=== PATIENT | female | born 1990 | race Two or more races ===

== ENCOUNTER 2020-08-07 08:35 | Outpatient (REF) | payer OTHER, SELFPAY ==
[2020-08-07 10:15] LABS: Thyroid Stimulating Hormone 1.12 uIU/mL (0.32-4.0)
== END 2020-08-07 08:36 | disposition home or self-care (01) ==
LOC: HO.LAB 08:35
PROVIDERS: PCP Physician Assistant; Visit Provider Advanced Practice Midwife
DX: L65.9 Nonscarring hair loss, unspecified (principal)
CPT/HCPCS: 84443

== ENCOUNTER 2020-08-25 08:12 | Emergency (ER) | payer OTHER, SELFPAY ==
--- NOTE | 2020-08-25 08:26 | ED.CHESTPAIN ---
HPI - Chest Pain General Chief Complaint: Chest Pain Stated Complaint: CHEST PAIN Time Seen by Provider: 08/25/20 08:26 Source: patient Mode of arrival: ambulatory Limitations: no limitations History of Present Illness HPI narrative: patient with no history of coronary disease no risk for coronary artery disease also. Complaining of left-sided chest pain for last 2 days which increases on movement. No shortness of breath no diaphoresis no nausea no vomiting patient also complaining of tingling in left hand off and on. Patient had similar pain few months ago cardiac workup was negative complaint: chest pain Onset (ago): day(s) (2) Timing of current episode: constant Prior episodes: Yes Onset: during rest Pain location: left chest Pain radiation: none Quality: aching Relieving factors: nothing Exacerbating factors: palpation and movement Treatment prior to arrival: none Related Data Previous Rx's Medication Instructions Recorded norethindrone (contraceptive) 0.35 0.35 mg PO DAILY #84 tab 08/02/20 mg tablet ibuprofen 600 mg PO Q6H PRN #20 tab 08/25/20 Allergies Allergy/AdvReac Type Severity Reaction Status Date / Time adhesive tape Allergy Intermediate BLISTERS/RA Verified 08/02/20 14:13 SH latex [LATEX] Allergy Intermediate BLISTERS/RA Verified 08/02/20 14:13 SH Adhesive Tape Allergy Unknown hives Verified 08/02/20 14:13 Latex Allergy Unknown hives Uncoded 05/24/20 00:00 Latex Gloves Allergy Unknown hives Uncoded 07/13/18 00:00 Review of Systems Review of Systems: REVIEW OF SYSTEMS: Pertinent positives and negatives are stated above in the history. GEN: no fevers, chills, fatigue HEENT: no nasal congestion, sore throat, ear pain NEURO: no headache, dizziness, focal weakness PULM: no cough, shortness of breath CV: no palpitations, LE edema ABD: no abdominal pain, nausea, vomiting, diarrhea : no dysuria, urgency, frequency SKIN: no rash ROS otherwise negative x 10 PMFSH Past Medical History Medical History Anemia Migraine Obesity Panic attack Renal calculi Umbilical hernia Vitamin D deficiency Surgical History Hx of bilateral breast reduction surgery Hx of tubal ligation Family History Family History Father Heart attack CVD (cardiovascular disease) Mother Depression HTN (hypertension) Migraine Anxiety Maternal Grandmother HTN (hypertension) Breast cancer Uterine cancer Brother ADHD Sister Depression Maternal Aunt Breast cancer Paternal Grandmother Diabetes mellitus Paternal Grandfather IDDM (insulin dependent diabetes mellitus) Family/Other Cervical cancer Social History Social History Alcohol intake: never Smoking Status: Never smoker Use of substances other than those prescribed or required for medical reasons: No Advance Directives: No Advance Directives Information Provided: No Gender identity: female Physical Exam Vital Signs: Vital Signs: Last Vital Signs Temp 98.3 F 08/25/20 08:28 Pulse 75 08/25/20 08:28 Resp 18 08/25/20 08:28 BP 162/141 H 08/25/20 08:28 Pulse Ox 100 08/25/20 08:28 Body Mass Index 43.4 Appearance: Alert. Oriented X3. No acute distress. Eyes: Pupils equal, round and reactive to light. ENT: Pharynx normal. Neck: Normal inspection. Neck supple. CVS: Normal heart rate and rhythm. Pulses normal. Respiratory: No respiratory distress. Breath sounds normal. left chest wall tenderness in 2nd intercostal space on palpation and movements of left arm Abdomen: Soft and nontender. Skin: Skin warm and dry. Normal skin color. Normal skin turgor. Extremities: No lower extremity edema. Good range of movement no calf swelling or tenderness Neuro: Oriented X 3. No motor deficit. No sensory deficit. MDM - Chest Pain MDM Narrative Medical decision making narrative: patient has atypical chest pain tender on palpation of the left chest troponin negative EKG is normal will discharge her home on ibuprofen Differential Diagnosis Differential diagnosis: Likely atypical chest pain Lab Data Labs: Lab Results 08/25/20 Range/Units 09:02 Troponin I High Sens < 3.5 (<3.5-17.0) ng/L ECG Data ECG #1: Attestation: I personally reviewed and interpreted this ECG as follows: ECG interpretation date: 08/25/20 ECG interpretation time: 08:39 Prior ECG tracings: available for review Interpretation: normal sinus rhythm heart rate [address] T wave changes normal intervals normal axis impression normal EKG Scores Heart Score History: -0- slightly suspicious ECG: -0- normal Age: -0- < or = 45 Risk factory: -0- no risk factors known Troponin: -0- < or = normal limit Score: 0 Risk: 1.7% Discharge Plan Discharge Clinical Impression: Costalchondritis Patient Disposition: Home, Self-Care Instructions: Costochondritis (ED) Additional Instructions: take tylenol/motrin for pain and follow with primary care doctor as needed Prescriptions: New ibuprofen 600 mg tablet 600 mg PO Q6H PRN (Reason: pain) Qty: 20 RF: 0 No Action norethindrone (contraceptive) [Shanelle] 0.35 mg tablet 0.35 mg PO DAILY Qty: 84 RF: 1 Interventions: ED Discharge Assessment Last Done: 08/25/20 10:41 Discharge Date/Time: 08/25/20 10:41
[2020-08-25 08:28] VITALS: BP 162/141; PULSE 75; RESP 18; TEMP 36.8; O2SAT 100; BMI 43.4
[2020-08-25 09:37] LABS: Troponin-I High Sensitivity < 3.5 ng/L (<3.5-17.0)
--- NOTE | 2020-08-27 | ECG_ITS ---
Test Reason : CP Blood Pressure : / mmHG Vent. Rate : 076 BPM Atrial Rate : 076 BPM P-R Int : 142 ms QRS Dur : 094 ms QT Int : 378 ms P-R-T Axes : -17 041 026 degrees QTc Int : 425 ms Normal sinus rhythm Normal ECG When compared with ECG of 02-MAY-2020 10:55, No significant change was found Referred By: Fahad Dinh Electronically Signed By:KACI ORANTES MD
== END 2020-08-25 10:41 | disposition home or self-care (01) ==
PROVIDERS: Emergency Provider Internal Medicine; PCP Physician Assistant
DX: M94.0 Chondrocostal junction syndrome [Tietze] (principal); R07.9 Chest pain, unspecified; Z79.899 Other long term (current) drug therapy
CPT/HCPCS: 84484; 93005; 99284

== ENCOUNTER 2020-08-26 09:42 | Emergency (ER) | payer OTHER, SELFPAY ==
[2020-08-26] VITALS (11 sets, daily range): BP systolic 94–127; BP diastolic 39–74; PULSE 67–100; RESP 16–17; TEMP 36.7–37.1; O2SAT 98–100; BMI 43.4
--- NOTE | 2020-08-26 09:48 | ED_ITS ---
HPI - Nausea/Vomiting/Diarrhea General Chief complaint: Nausea/Vomiting/Diarrhea Stated complaint: vomiting, fainted Time Seen by Provider: 08/26/20 09:46 Source: patient Mode of arrival: ambulatory Limitations: no limitations History of Present Illness HPI Narrative: 30 y/o female s/p tubual ligation 2014 with subsequent to term in 2019, hx ectopic 04/2020 treated with methotrexate, hx cholestasis in , anemia, hx kidney stones, migraines, panic attacks who presents with nausea and vomiting for the last 3 days. She states she has increased stress in her life and attributed it to that. Vomiting is worse in the mornings. She states this morning 1/2 hour after she vomited she was sitting on the couch and thinks she may have passed out briefly. She states she all the sudden had tunnel vision and saw stars. She now feels back to baseline and denies injuries. She has a history of syncope in the past. She denies abdominal pain, diarrhea or constipation. Last menses 07/21. Not on any control at the moment, was supposed to start a non-hormonal OCP soon. Related Data Previous Rx's Medication Instructions Recorded norethindrone (contraceptive) 0.35 0.35 mg PO DAILY #84 tab 08/02/20 mg tablet ibuprofen 600 mg PO Q6H PRN #20 tab 08/25/20 cephalexin [Keflex] 500 mg PO BID 5 Days #10 cap 08/26/20 ondansetron HCl [Zofran] 4 mg PO Q8H PRN #10 tab 08/26/20 Allergies Allergy/AdvReac Type Severity Reaction Status Date / Time adhesive tape Allergy Intermediate BLISTERS/RA Verified 08/02/20 14:13 SH latex [LATEX] Allergy Intermediate BLISTERS/RA Verified 08/02/20 14:13 SH Adhesive Tape Allergy Unknown hives Verified 08/02/20 14:13 Latex Allergy Unknown hives Uncoded 05/24/20 00:00 Latex Gloves Allergy Unknown hives Uncoded 07/13/18 00:00 Review of Systems Review of Systems: Constitutional: No Fever, No Chills ENT/Mouth: No sore throat, No Rhinorrhea, No Swallowing Difficulty Eyes: No Eye Pain, No Swelling, No Redness Cardiovascular: No Chest Pain, No SOB, No Orthopnea, No Edema Respiratory: No Cough, No Sputum, No Wheezing, No dyspnea Gastrointestinal: + Nausea, + Vomiting, No Diarrhea, No abdominal Pain, No Hematochezia, No Melena Genitourinary: No Dysuria, No Urinary Frequency, No Hematuria Musculoskeletal: No joint pain, + Myalgias Skin: No Skin Lesions, No rash Neuro: No Weakness, No Numbness, + Dizziness, + Headache Psych: + Anxiety/Panic, + Depression, No SI Heme/Lymph: No Bruising, No Lymphadenopathy Endocrine: No Polyuria, No Polydipsia [facility] Past Medical History Medical History Anemia Migraine Obesity Panic attack Renal calculi Umbilical hernia Vitamin D deficiency Surgical History Hx of bilateral breast reduction surgery Hx of tubal ligation Family History Family History Father Heart attack CVD (cardiovascular disease) Mother Depression HTN (hypertension) Migraine Anxiety Maternal Grandmother HTN (hypertension) Breast cancer Uterine cancer Brother ADHD Sister Depression Maternal Aunt Breast cancer Paternal Grandmother Diabetes mellitus Paternal Grandfather IDDM (insulin dependent diabetes mellitus) Family/Other Cervical cancer Social History Social History Alcohol intake: never Smoking Status: Never smoker Smoked in Last 30 Days: No Use of substances other than those prescribed or required for medical reasons: No Advance Directives: No Advance Directives Information Provided: No Gender identity: female Physical Exam Vital Signs: Vital Signs: Last Vital Signs Temp 98.0 F 08/26/20 14:00 Pulse 87 08/26/20 14:00 Resp 16 08/26/20 14:00 BP 101/56 L 08/26/20 14:00 Pulse Ox 98 08/26/20 14:00 Body Mass Index 43.4 Appearance: Alert. Oriented X3. No acute distress. Eyes: Pupils equal, round and reactive to light. ENT: Pharynx normal. Neck: Normal inspection. Neck supple. CVS: Normal heart rate and rhythm. Pulses normal. Respiratory: No respiratory distress. Breath sounds normal. Abdomen: Obese, Soft and nontender. +BS x4 Skin: Skin warm and dry. Normal skin color. Normal skin turgor. No rashes. Extremities: No lower extremity edema. Neuro: Oriented X 3. No motor deficit. No sensory deficit. Course Course Course Narrative: 30 y/o mulitparous female with recent ectopic , hx after tubal ligation presents with N/V x1 days and possible syncopal episode this morning. Concern for recurrent now that she is not on any form of control. Will check labs, HCG quant, EKG, orthostatics and assess for electrolyte derrangements. She is vitally stable on arrival and appears well. IVF and Zofran ordered for reports of continued nausea. Reevaluation(s) Reevaluation #1: HCG returned at 2846. Patient informed of the results. Given her history will get pelvic U/S to assure intrauterine . Magnesium 1.5 - 2g IV ordered for repletion. Orthostatics positive, getting IVF now, will repeat. LFT's mildly elevated, she has no abdominal pain no RUQ pain. Can be from vomiting. Bilirubins and ALP normal reassuring against biliary obstruciton. Reevaluation #2: Repeat orthostatic VS s/p 2L IVF were negative. Spoke with Dr. Michelle given patient's complicated history - he states chance of ectopic with US findings is very low but not 0. He would like short interval follow up in his office with repeat U/S this week. Patient will be counseled on warning signs of ectopic and instructed to seek medical attention right away if she develops them. UA is positive, will empirically treat. She is stable for discharge. Consultations Consultation #1: Spoke with Dr. Carbajal at 2pm. MDM - Nausea/Vomiting/Diarrhea Lab Data Result diagrams: 08/26/20 10:14 08/26/20 10:14 Labs: Lab Results 08/26/20 08/26/20 08/26/20 Range/Units 10:01 10:14 10:14 WBC 7.2 (4.8-10.8) X10*3/uL RBC 4.46 (4.20-5.50) X10*6/uL Hgb 11.9 L (12.0-16.0) g/dl Hct 37.0 (37-47) % MCV 83.0 (80-98) fL MCH 26.7 L (27.0-33.0) pg MCHC 32.2 (31.0-35.0) g/dl RDW 14.3 (11.0-16.0) % Plt Count 267 (160-400) X10*3/uL MPV 10.8 (9.4-12.3) fL Immature Gran % (Auto) 0.3 (0.0-0.4) % Neut % (Auto) 68.8 (45-73) % Lymph % (Auto) 22.0 (20-40) % [place] % (Auto) 7.0 (2-11) % Eos % (Auto) 1.5 (0-4) % Baso % (Auto) 0.4 (0-2) % Lymph # (Auto) 1.6 (1.2-4.9) X10*3/uL [place] # (Auto) 0.5 (0.1-1.2) X10*3/uL Eos # (Auto) 0.1 (0.0-0.4) X10*3/uL Baso # (Auto) 0.0 (0.0-0.2) X10*3/uL Abs Immat Gran (auto) 0.02 (0.00-0.03) X10*3/uL Absolute Neuts (auto) 4.9 (2.0-8.3) X10*3/uL Absolute Nucleated RBC 0.000 (0.0-0.012) X10*3/uL Nucleated RBC % (auto) 0.0 (0.0-0.2) /100WBC Sodium 137 (135-145) mmol/L Potassium 4.1 (3.3-5.1) mmol/l Chloride 106 (96-108) mmol/L Carbon Dioxide 22 (22-29) mmol/L Anion Gap 13 (12-20) BUN 5 L (9-16) mg/dL Creatinine 0.72 (0.5-1.4) mg/dL Estim Creat Clear Calc 127.0 Estimated GFR > 60 Random Glucose 83 (60-115) mg/dL Calcium 8.7 (8.4-10.2) mg/dL Magnesium (1.6-2.6) mg/dL Total Bilirubin 0.9 (0.0-1.0) mg/dL Direct Bilirubin 0.4 (0.0-0.5) mg/dL AST 50 H (5-31) U/L ALT 70 H (0-31) U/L Alkaline Phosphatase 66 (39-117) U/L Total Protein 6.9 (6.5-8.0) g/dL Albumin 3.9 (3.5-5.0) g/dL Lipase (8-78) U/L Beta HCG, Quant mIU/mL Urine Color YELLOW Urine Appearance CLOUDY Urine pH 6.0 (5.0-8.0) Ur Specific [place] <= 1.005 (1.005-1.025) Urine Protein NEG (NEG-TRACE) MG/DL Urine Glucose (UA) NEG (NEG) MG/DL Urine Ketones NEG (NEG) MG/DL Urine Blood NEG (NEG) Urine Nitrite NEG (NEG) Ur Leukocyte Esterase 2+ H (NEG) Urine 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 Urine WBC 5-9 H (0-4) /HPF Ur Squamous Epith Cells 3+ /LPF Urine Bacteria 2+ /LPF Urine Mucus 1+ /LPF 08/26/ Range/Units 10:14 WBC (4.8-10.8) X10*3/uL RBC (4.20-5.50) X10*6/uL Hgb (12.0-16.0) g/dl Hct (37-47) % MCV (80-98) fL MCH (27.0-33.0) pg MCHC (31.0-35.0) g/dl RDW (11.0-16.0) % Plt Count (160-400) X10*3/uL MPV (9.4-12.3) fL Immature Gran % (Auto) (0.0-0.4) % Neut % (Auto) (45-73) % Lymph % (Auto) (20-40) % [place] % (Auto) (2-11) % Eos % (Auto) (0-4) % Baso % (Auto) (0-2) % Lymph # (Auto) (1.2-4.9) X10*3/uL [place] # (Auto) (0.1-1.2) X10*3/uL Eos # (Auto) (0.0-0.4) X10*3/uL Baso # (Auto) (0.0-0.2) X10*3/uL Abs Immat Gran (auto) (0.00-0.03) X10*3/uL Absolute Neuts (auto) (2.0-8.3) X10*3/uL Absolute Nucleated RBC (0.0-0.012) X10*3/uL Nucleated RBC % (auto) (0.0-0.2) /100WBC Sodium (135-145) mmol/L Potassium (3.3-5.1) mmol/l Chloride (96-108) mmol/L Carbon Dioxide (22-29) mmol/L Anion Gap (12-20) BUN (9-16) mg/dL Creatinine (0.5-1.4) mg/dL Estim Creat Clear Calc Estimated GFR Random Glucose (60-115) mg/dL Calcium (8.4-10.2) mg/dL Magnesium 1.5 L (1.6-2.6) mg/dL Total Bilirubin (0.0-1.0) mg/dL Direct Bilirubin (0.0-0.5) mg/dL AST (5-31) U/L ALT (0-31) U/L Alkaline Phosphatase (39-117) U/L Total Protein (6.5-8.0) g/dL Albumin (3.5-5.0) g/dL Lipase 26 (8-78) U/L Beta HCG, Quant 2846 mIU/mL Urine Color Urine Appearance Urine pH (5.0-8.0) Ur Specific [place] (1.005-1.025) Urine Protein (NEG-TRACE) MG/DL Urine Glucose (UA) (NEG) MG/DL Urine Ketones (NEG) MG/DL Urine Blood (NEG) Urine Nitrite (NEG) Ur Leukocyte Esterase (NEG) Urine RBC Urine WBC (0-4) /HPF Ur Squamous Epith Cells /LPF Urine Bacteria /LPF Urine Mucus /LPF Critical Care Time Critical Care Time Critical Care Time: No Discharge Plan Discharge Clinical Impression: Elevated liver enzymes Qualifiers: Weeks of gestation: less than 8 weeks Qualified Code(s): Z3A.01 - Less than 8 weeks gestation of Urinary tract infection during Qualifiers: Trimester: first trimester Qualified Code(s): O23.41 - Unspecified infection of urinary tract in , first trimester Patient Disposition: Home, Self-Care Instructions: Urinary Tract Infection in (ED), First Trimester (ED) Additional Instructions: You blood tests today showed elevated hormone - Ultrasound confirmed within your uterus. Given your history an ectopic risk still remains but is very unlikely at this time. If you develop sharp abdominal pain, cramping, vaginal bleeding, pain on one side more than another, dizziness, worsening nausea and vomiting then come back to the ER right away. Dr. Michelle would like you to call his office tomorrow morning and arrange for repeat ultrasound this week. Stay hydrated, drink plenty of water. Take Tylenol as needed for headache. Your urine test shows possible infection, so you are being started on antibiotics while we await urine culture. Your liver enzymes are very mildly elevated, which you have had in the past. This will needed to be monitored throughout your . If you develop abdominal pain, especially in the right upper side come back to the ER for further evaluation. Follow up with your [facility] [employer] doctor this week. Prescriptions: New ondansetron HCl [Zofran] 4 mg tablet 4 mg PO Q8H PRN (Reason: nausea and vomiting) Qty: 10 RF: 0 cephalexin [Keflex] 500 mg capsule 500 mg PO BID 5 Days Qty: 10 RF: 0 No Action ibuprofen 600 mg tablet 600 mg PO Q6H PRN (Reason: pain) Qty: 20 RF: 0 norethindrone (contraceptive) [Shanelle] 0.35 mg tablet 0.35 mg PO DAILY Qty: 84 RF: 1 Referrals: Adrian Michelle MD [Physician] - 1 day (+, hx tubal ligation, hx ectopic ) Interventions: ED Discharge Assessment Last Done: 08/26/20 14:25 Discharge Date/Time: 08/26/20 14:25
--- NOTE | 2020-08-26 09:55 | ECG_ITS ---
Test Reason : FAINTING Blood Pressure : / mmHG Vent. Rate : 096 BPM Atrial Rate : 096 BPM P-R Int : 142 ms QRS Dur : 086 ms QT Int : 356 ms P-R-T Axes : 060 041 031 degrees QTc Int : 449 ms Normal sinus rhythm Normal ECG When compared with ECG of 25-AUG-2020 08:20, No significant change was found Referred By: Fabby Saleh Electronically Signed By:KACI ORANTES MD
[2020-08-26 10:21] LABS: Basophils Percent Auto 0.4 % (0-2); Eosinophils Absolute Auto 0.1 X10*3/uL (0.0-0.4); Eosinophils Percent Auto 1.5 % (0-4); Hemoglobin 11.9 g/dl (12.0-16.0); Imm Gran Abs Auto 0.02 X10*3/uL (0.00-0.03); Imm Gran Pct Auto 0.3 % (0.0-0.4); Lymphocytes Absolute Auto 1.6 X10*3/uL (1.2-4.9); MANUAL DIFF FLAG NO; Mean Corpuscular HGB Conc 32.2 g/dl (31.0-35.0); Mean Corpuscular Hemoglobin 26.7 pg (27.0-33.0); Mean Platelet Volume 10.8 fL (9.4-12.3); Monocytes Absolute Auto 0.5 X10*3/uL (0.1-1.2); Neutrophils Absolute Auto 4.9 X10*3/uL (2.0-8.3); Neutrophils Percent Auto 68.8 % (45-73); Platelet Count 267 X10*3/uL (160-400); Red Blood Count 4.46 X10*6/uL (4.20-5.50); Red Cell Distribution Width 14.3 % (11.0-16.0); White Blood Count 7.2 X10*3/uL (4.8-10.8)
[2020-08-26 10:32] LABS: Glucose Urine UA NEG (NEG); Leukocyte Esterase Urine 2+ (NEG); Nitrite Urine NEG (NEG); Specific Gravity - Urine <= 1.005 (1.005-1.025); Urine Blood NEG (NEG); Urine Ketones NEG (NEG); Urine Protein NEG (NEG-TRACE)
[2020-08-26] MEDS: 0.9 % Sodium Chloride 1,000 ML 999 ML IVCONT ×2 (10:37→12:21)
[2020-08-26 10:49] LABS: Appearance Urine CLOUDY; Color Urine YELLOW
[2020-08-26 10:49] LABS: Lipase 26 U/L (8-78); Magnesium 1.5 mg/dL (1.6-2.6)
[2020-08-26] MEDS: ondansetron HCL 4 MG/2 ML VIAL IVPUSH (10:49)
[2020-08-26 10:51] LABS: Alanine Aminotransferase 70 U/L (0-31); Albumin Level 3.9 g/dL (3.5-5.0); Alkaline Phosphatase 66 U/L (39-117); Anion Gap 13 (12-20); Aspartate Amino Transferase 50 U/L (5-31); Bilirubin Direct 0.4 mg/dL (0.0-0.5); Bilirubin Total 0.9 mg/dL (0.0-1.0); Blood Urea Nitrogen 5 mg/dL (9-16); Calcium 8.7 mg/dL (8.4-10.2); Carbon Dioxide 22 mmol/L (22-29); Chloride 106 mmol/L (96-108); Estimated Glomerular Filt Rate > 60; Glucose Random 83 mg/dL (60-115); Potassium 4.1 mmol/l (3.3-5.1); Sodium 137 mmol/L (135-145); Total Protein 6.9 g/dL (6.5-8.0)
[2020-08-26 10:52] LABS: Bacteria Urine 2+ /LPF; Squamous Epithelial Cell Urine 3+ /LPF
[2020-08-26 10:53] LABS: Mucus Urine 1+ /LPF
[2020-08-26 10:56] LABS: HCG Quantitative 2846 mIU/mL
--- NOTE | 2020-08-26 11:06 | US_ITS ---
EXAMINATION: US OBSTETRICAL CLINICAL INFORMATION: 30-year-old woman with positive hCG and history of ectopic . Quantitative serum beta hCG level is 2846. COMPARISON: Pelvic ultrasound dated 05/11/2020 TECHNIQUE: Transabdominal and transvaginal images of the pelvis were obtained. Transvaginal imaging was required to better visualize pelvic structures. FINDINGS: The uterus is anteverted in position. There is an eccentrically positioned saclike structure at the fundus of the uterus likely representing a gestational sac. The diameter is approximately 0.6 cm corresponding to a gestational age of 5 weeks 1 day which correlates with the gestational age of 5 weeks 1 day by LMP. A yolk sac and pole are not seen. There is a crescentic fluid collection adjacent to the gestational sac likely representing a small to moderate subchorionic hemorrhage. The right ovary measures 2.7 x 1.5 x 4.2 cm. There is a small 1.2 cm thin-walled simple appearing cystic structure adjacent to the right ovary, possibly representing a paraovarian cyst. The left ovary measures 4.2 x 2.6 x 2.2 cm. There is a thick-walled cystic structure in the left ovary with increased peripheral color Doppler flow likely representing a corpus luteum. There appears to be a few other dominant follicles in the left ovary. There is no pelvic free fluid. US/US OB <= 14 weeks fetus IMPRESSION: A gestational sac is visualized within the uterus corresponding to a gestational age of 5 weeks 1 day. No yolk sac or pole is seen at this time, presumably due to early gestation. A subchorionic hemorrhage is present. No suspicious adnexal lesions are visualized. With the presence of an intrauterine gestational sac, ectopic is highly unlikely.
[2020-08-26] MEDS: Magnesium Sulfate/H2O 2 GM/50 ML PIGGYBACK IV (11:09)
[2020-08-26] MEDS: Acetaminophen 325 MG TABLET 975 MG PO (11:23)
--- NOTE | 2020-08-26 11:38 | PC.NURSE ---
Pt off to U/S, reports decrease in nausea, medicated for 5/10 headache.
--- NOTE | 2020-08-26 14:25 | PM.OBCN ---
OB Consult Note - HPI Data Service Date: 08/26/20 Primary Care Provider: Abilio August PA-C Narrative Clari Fletcher is a 30 year old female who presented to the emergency room with nausea and vomiting an episode of syncope. I was called by PENG Samuel in the emergency room regarding a consult. IV hydration and zofran IV was given and nausea and vomiting improved patient did not have any other syncope attack but has a history of vasovagal, Urine test was positive HCG was 2842, ultrasound showed a 5 weeks intra uterine gestational sac with no pole, yolk sac or embryo, no adnexal mass, there is a left corpus luteum cyst and subchorionic hemorrhage. 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 - Review of Systems Review of Systems ROS Unobtainable: All systems reviewed & are unremarkable except as noted in HPI and below OB PMFSH Past Medical History Medical History Anemia Migraine Obesity Panic attack Renal calculi Umbilical hernia Vitamin D deficiency Family History Family History Father Heart attack CVD (cardiovascular disease) Mother Depression HTN (hypertension) Migraine Anxiety Maternal Grandmother HTN (hypertension) Breast cancer Uterine cancer Brother ADHD Sister Depression Maternal Aunt Breast cancer Paternal Grandmother Diabetes mellitus Paternal Grandfather IDDM (insulin dependent diabetes mellitus) Family/Other Cervical cancer Surgical History Surgical History Hx of bilateral breast reduction surgery Hx of tubal ligation Social History Social History Alcohol intake: never Smoking Status: Never smoker Smoked in Last 30 Days: No Use of substances other than those prescribed or required for medical reasons: No Advance Directives: No Advance Directives Information Provided: No Gender identity: female Meds Allergies Allergy/AdvReac Type Severity Reaction Status Date / Time adhesive tape Allergy Intermediate BLISTERS/RA Verified 08/02/20 14:13 SH latex [LATEX] Allergy Intermediate BLISTERS/RA Verified 08/02/20 14:13 SH Adhesive Tape Allergy Unknown hives Verified 08/02/20 14:13 Latex Allergy Unknown hives Uncoded 05/24/20 00:00 Latex Gloves Allergy Unknown hives Uncoded 07/13/18 00:00 OB Flowsheet OB Flowsheet & Tools History 5 Elective abortions 0 Para Spontaneous abortions 1 Hx # Term Pregnancies 4 Ectopic pregnancies 0 Hx # Pregnancies 0 Multiple births 0 OB Physical Exam Evaluation Gestational Age: Five weeks and 1 day of gestation with normal physical exam according to PENG Samuel in the emergency OB Consult Results Labs CBC & Chem 7: 08/26/20 10:14 08/26/20 10:14 Labs: Short CBC 08/26/20 Range/Units 10:14 WBC 7.2 (4.8-10.8) X10*3/uL Hgb 11.9 L (12.0-16.0) g/dl Hct 37.0 (37-47) % Plt Count 267 (160-400) X10*3/uL BMP 08/26/20 10:14 Sodium 137 Potassium 4.1 Chloride 106 Carbon Dioxide 22 BUN 5 L Creatinine 0.72 Calcium 8.7 Liver Function 08/26/20 Range/Units 10:14 Total Bilirubin 0.9 (0.0-1.0) mg/dL Direct Bilirubin 0.4 (0.0-0.5) mg/dL AST 50 H (5-31) U/L ALT 70 H (0-31) U/L Alkaline Phosphatase 66 (39-117) U/L Albumin 3.9 (3.5-5.0) g/dL Urine 08/26/20 Range/Units 10:01 Urine Color YELLOW Urine Appearance CLOUDY Urine pH 6.0 (5.0-8.0) Ur Specific [place] <= 1.005 (1.005-1.025) Urine Protein NEG (NEG-TRACE) MG/DL Urine Glucose (UA) NEG (NEG) MG/DL OB - CN: A/P Assessment and Plan (1) : Status: Acute Assessment and Plan: Discussed with PENG Smith with the patient's history of ectopic and ultrasound finding there is a possibility of pseudo gestational sac and likelihood of ectopic is still a possibility; if therefore warnings should be given to patient for ectopic she is to call if abdominal pain vaginal bleeding quadrant follow with close follow-up in the office for repeat ultrasound confirmation of intrauterine (2) Elevated liver enzymes: Status: Acute Assessment and Plan: Will repeat the liver function test if nausea and vomiting and/or elevation in liver function test does not improve next step is gallbladder ultrasound to rule out cholelithiasis (3) Urinary tract infection during : Status: Acute Assessment and Plan: Urine culture sent Keflex 500 mg p.o. q.i.d. for 5 days will check sensitivity and treat accordingly and repeat urine culture is a test of cure if today's urine culture was positive Ibuprofen and control pills to be stopped since patient is Discussed the case with PEGN Samuel the emergency room will follow-up with the patient with close appointment early next week in the office
== END 2020-08-26 14:25 | disposition home or self-care (01) ==
PROVIDERS: Physician Assistant; Emergency Provider Internal Medicine; PCP Physician Assistant
DX: O23.41 Unspecified infection of urinary tract in pregnancy, first trimester (principal); R74.8 Abnormal levels of other serum enzymes; Z3A.01 Less than 8 weeks gestation of pregnancy
CPT/HCPCS: 36415; 76801; 76817; 80048; 80076; 81001; 83690; 83735; 84702; 85025; 87086; 93005; 96361; 96365; 96366; 96375; 99283; 99284; J2405; J3475

== ENCOUNTER 2020-09-04 12:22 | Outpatient (REF) | payer OTHER, SELFPAY ==
[2020-09-04 13:33] LABS: Alanine Aminotransferase 25 U/L (0-31); Aspartate Amino Transferase 17 U/L (5-31)
== END 2020-09-04 12:23 | disposition home or self-care (01) ==
LOC: HO.LAB 12:22
PROVIDERS: PCP Physician Assistant; Visit Provider Obstetrics & Gynecology
DX: O36.80X0 Pregnancy with inconclusive fetal viability, not applicable or unspecified (principal); R74.8 Abnormal levels of other serum enzymes; Z3A.00 Weeks of gestation of pregnancy not specified
CPT/HCPCS: 84450; 84460; 84702

== ENCOUNTER 2020-09-07 08:00 | Outpatient (REF) | payer OTHER, SELFPAY ==
--- NOTE | 2020-09-07 08:11 | US_ITS ---
EXAMINATION: FIRST TRIMESTER OB ULTRASOUND CLINICAL INFORMATION: Check viability COMPARISON: Previous exam 08/26/2020 TECHNIQUE: Transabdominal first trimester OB ultrasound FINDINGS: The uterus is normal in size and shape and measures 10.8 x 4.9 x 6.9 cm in dimension. There is an intrauterine gestational sac. Belterra-rump length measures 0.86 cm suggesting gestational age of 6 weeks 6 days with estimated delivery of 04/27/2021. heart rate is 136 bpm. There is a yolk sac. There is a small hypoechoic area adjacent to the gestational sac measuring 1.6 x 0.4 x 1.9 cm questionable for small area of subchorionic hemorrhage. The cervix is normal appearing. The maternal ovaries are normal. Right maternal ovary measures 3.1 x 1.5 x 1.9 cm and the left 3.5 x 2.9 x 2.8 cm. There is no fluid in the pelvis. US/US OB <= 14 weeks fetus IMPRESSION: Single viable intrauterine . From today's measurements, gestational age is estimated at 6 weeks 6 days with estimated date of delivery of 04/27/2021.
== END 2020-09-07 08:01 | disposition home or self-care (01) ==
LOC: HO.US 08:00
PROVIDERS: PCP Physician Assistant; Visit Provider Obstetrics & Gynecology
DX: O36.80X0 Pregnancy with inconclusive fetal viability, not applicable or unspecified (principal); Z3A.14 14 weeks gestation of pregnancy
CPT/HCPCS: 76801

== ENCOUNTER → 2020-10-05 14:21 | Outpatient (BNVA) | payer OTHER, SELFPAY | PROVIDERS: PCP Physician Assistant; Visit Provider Obstetrics & Gynecology | DX: Z76.89 Persons encountering health services in other specified circumstances (principal) | CPT/HCPCS: 99212 ==

== ENCOUNTER 2020-10-25 10:33 | Outpatient (REF) | payer OTHER, SELFPAY ==
[2020-10-26 10:00] LABS: BV Int Neg Control Negative (Negative); BV Int Pos Control Positive (Positive)
[2020-10-26 15:42] LABS: C. trachomatis RNA TMA NOT DETECTED (NOT DETECTED); N. gonorrhoeae RNA TMA NOT DETECTED (NOT DETECTED)
[2020-11-02 20:21] LABS: HPV mRNA E6/E7 rflx Not Detected (Not Detected)
== END 2020-10-25 10:34 | disposition home or self-care (01) ==
LOC: HO.LAB 10:33
PROVIDERS: PCP Physician Assistant; Visit Provider Advanced Practice Midwife
DX: O99.211 Obesity complicating pregnancy, first trimester (principal); E66.01 Morbid (severe) obesity due to excess calories; O26.891 Other specified pregnancy related conditions, first trimester; R74.8 Abnormal levels of other serum enzymes; D64.9 Anemia, unspecified; E55.9 Vitamin D deficiency, unspecified; Z3A.13 13 weeks gestation of pregnancy; Z87.59 Personal history of other complications of pregnancy, childbirth and the puerperium; Z87.19 Personal history of other diseases of the digestive system; Z88.8 Allergy status to other drugs, medicaments and biological substances; Z91.040 Latex allergy status; Z79.899 Other long term (current) drug therapy
CPT/HCPCS: 36415; 81003; 87480; 87491; 87510; 87591; 87624; 87660; 88142; 99212

== ENCOUNTER 2020-10-26 12:40 | Outpatient (REF) | payer OTHER, SELFPAY ==
--- NOTE | 2020-10-26 12:59 | US_ITS ---
EXAMINATION: OBSTETRICAL ULTRASOUND, FIRST TRIMESTER HISTORY: A 30-year-old at 13.6 weeks of gestation NT screening BMI 47.1 COMPARISON: 09/07/2020 TECHNIQUE: Real time transabdominal imaging with color and M-mode Doppler. FINDINGS: A single, live IUP CRL of 85.3 mm c/w 14.4wks is noted. Heart Rate: 158 beats per minute. Normal yolk sac seen. NT was 1.88.mm. NB Present The embryo appears sonographically wnl for this GA. Left ovary is within normal limits. The right ovary was not visualized GESTATIONAL AGE: 1. Established GA: 13.6 wks 2. GA from [facility]: 14.4 wks ESTIMATED DATE OF DELIVERY: 1. Established EVA: 04/27/2021 2. EVA from [facility]: 04/22/2021 US/US OB 1T nuc measure IMPRESSION: 1. A single live IUP 2. Size equals dates 3. NT of 1.88 mm MFM Consultation: I reviewed the ultrasound findings along with significance of NT measurement. The NT of less than 3mm is generally reassuring. However, the sensitivity for T21 detection is only 60%. I reviewed the availability of serum aneuploidy screening which includes cell-free DNA and placental protein based tests. I discussed the sensitivity, false-positive rate, and other limitations associated with each test. I also reviewed the availability of invasive diagnostic tests that are associated small but definite risk of miscarriage. We also reviewed the differences between screening tests and diagnostic tests. After our discussion, she opted for the First trimester screening that is based on cell-free DNA or non-invasive testing (NIPT). The result will be faxed to your office in approximately 7 days. A follow up at 18 weeks for survey has been scheduled. Thank you very much for this referral. Majority of this visit was spent reviewing her care and counselling her in face to face time: Time spent 30 min.
[2020-10-26 15:56] LABS: Amphetamine Screen Urine Not Detected (Not Detect); Barbiturates, Urine Not Detected (Not Detect); Benzodiazepines Screen Urine Not Detected (Not Detect); Cannabinoid Screen Urine Not Detected (Not Detect); Cocaine Screen Urine Not Detected (Not Detect); Opiate Screen Urine Not Detected (Not Detect); Phencyclidine Screen Urine Not Detected (Not Detect)
[2020-10-26 15:57] LABS: MANUAL DIFF FLAG NO
[2020-10-26 16:02] LABS: Basophils Percent Auto 0.4 % (0-2); Eosinophils Absolute Auto 0.1 X10*3/uL (0.0-0.4); Eosinophils Percent Auto 0.7 % (0-4); Hematocrit 35.8 % (37-47); Hemoglobin 11.6 g/dl (12.0-16.0); Imm Gran Abs Auto 0.01 X10*3/uL (0.00-0.03); Imm Gran Pct Auto 0.1 % (0.0-0.4); Lymphocytes Percent Auto 24.1 % (20-40); Mean Corpuscular HGB Conc 32.4 g/dl (31.0-35.0); Mean Corpuscular Hemoglobin 26.9 pg (27.0-33.0); Mean Corpuscular Volume 83.1 fL (80-98); Mean Platelet Volume 11.2 fL (9.4-12.3); Monocytes Absolute Auto 0.4 X10*3/uL (0.1-1.2); Monocytes Percent Auto 5.3 % (2-11); Neutrophils Absolute Auto 5.7 X10*3/uL (2.0-8.3); Neutrophils Percent Auto 69.4 % (45-73); Platelet Count 230 X10*3/uL (160-400); Red Blood Count 4.31 X10*6/uL (4.20-5.50); Red Cell Distribution Width 13.8 % (11.0-16.0); White Blood Count 8.2 X10*3/uL (4.8-10.8)
[2020-10-26 16:31] LABS: Glucose 1 Hour PP 50gm Dose 95 mg/dL (60-140)
[2020-10-26 16:58] LABS: Thyroid Stimulating Hormone 0.96 uIU/mL (0.32-4.0)
[2020-10-27 16:13] LABS: Rubella IgG Antibody 4.51 Index
[2020-10-29 08:04] LABS: HIV AB/AG Nonreactive (Nonreactive); HIV Num 1 0.11 S/CO (0.00-0.99); ~HepC Num1 0.14 S/CO (0.00-0.79); ~Hepatitis C Antibody Nonreactive (Nonreactive)
[2020-10-29 08:23] LABS: HBsAGNum1 0.15 S/CO (0.00-0.99); Hepatitis B Surface Antigen Negative (Negative)
[2020-10-29 14:25] LABS: Syphilis Screen Nonreactive (Nonreactive)
== END 2020-10-26 12:41 | disposition home or self-care (01) ==
LOC: HO.US 12:40
PROVIDERS: Advanced Practice Midwife; Visit Provider Obstetrics & Gynecology
DX: O99.210 Obesity complicating pregnancy, unspecified trimester (principal); E66.01 Morbid (severe) obesity due to excess calories; Z68.42 Body mass index [BMI] 45.0-49.9, adult; R94.5 Abnormal results of liver function studies; Z3A.00 Weeks of gestation of pregnancy not specified
CPT/HCPCS: 76813; 80307; 84443; 85025; 86762; 86780; 86787; 86803; 86850; 86900; 86901; 87086; 87147; 87340; 87389

== ENCOUNTER 2020-10-31 17:05 | Outpatient (REF) | payer OTHER, SELFPAY | END 2020-10-31 17:06 | disposition home or self-care (01) | LOC: HO.LAB 17:05 | PROVIDERS: Visit Provider Advanced Practice Midwife | DX: Z13.89 Encounter for screening for other disorder (principal) ==

== ENCOUNTER 2020-11-26 10:38 | Outpatient (REF) | payer OTHER, SELFPAY ==
[2020-11-26 13:42] LABS: Alanine Aminotransferase 28 U/L (0-31); Aspartate Amino Transferase 20 U/L (5-31)
== END 2020-11-26 10:39 | disposition home or self-care (01) ==
LOC: HO.LAB 10:38
PROVIDERS: PCP Physician Assistant; Visit Provider Advanced Practice Midwife
DX: O99.212 Obesity complicating pregnancy, second trimester (principal); E66.9 Obesity, unspecified; Z3A.28 28 weeks gestation of pregnancy
CPT/HCPCS: 36415; 84450; 84460; 99212

== ENCOUNTER 2020-11-30 12:56 | Outpatient (REF) | payer OTHER, SELFPAY ==
--- NOTE | ~2020-11-30 | US_ITS ---
EXAMINATION: US OBSTETRICAL CLINICAL INFORMATION: 30-year-old at 18.6 weeks of gestation Screening for anomaly COMPARISON: 10/26/2020 TECHNIQUE: Real-time transabdominal ultrasound was performed using C1-5 megahertz transducer. FINDINGS: A single, active, fetus is seen in vertex presentation. The placenta is posterior without previa, and the amniotic fluid volume is wnl. MEASUREMENTS: 1. Biparietal Diameter: 4.5 cm; 19.5 wks 2. Occipital Frontal Diameter: 5.95 cm 3. Head Circumference: 17.0 cm; 19.5 wks 4. Abdominal Circumference: 15.4 cm; 20.5 wks 5. Femur Length: 3.1 cm; 18.5 wks 6. Humerus Length: 3.0 cm; 19.6 wks 7. Tibia Length: 2.6 cm; 19.2 wks 8. Ulna Length: 2.7 cm; 19.6 wks 9. Lateral ventricle: 0.7 cm 10. Cerebellum: 1.81 cm; 18.6 wks 11. Cisterna Magna: 0.53 cm 12. Nuchal Fold: 3.61 mm 13. Heart Rate: 155 beats per minute Rt ovary: normal Lt ovary: Small paraovarian cysts 1.9 x 1.2 x 1.6 cm Cervical length 4.6 cm on T/A. GESTATIONAL AGE: 1. Established GA: 18.6 wks 2. GA from [facility]: 20.0 wks ESTIMATED DATE OF DELIVERY: 1. Established EVA: 04/27/2021 2. EVA from [facility]: 04/19/2021 ANATOMY: The visualized anatomy includes but not limited to: 1. Cranium: Normal 2. Intracranial anatomy: cavum septum pellucidi, lateral ventricles, choroid plexus, cerebellum, posterior fossa, third and fourth ventricles. 3. face: orbits, lip/palate, profile, nasal bone 4. Heart: four-chamber view of the heart, ventricular septum, foramen ovale, pulmonary vein, left and right outflow tracts, three-vessel view, 3 vessel trachea view, aortic and ductal arches, situs.. 5. Diaphragm: Normal 6. Abdominal wall: Normal 7. Cord Insertion: Normal 8. Spine: Cervical, thoracic, lumbar, sacral. 9. Stomach: Normal size and shape 10. Right Kidney: Normal 11. Left Kidney: Normal 12. 3 vessel cord: Normal 13. Upper extremity: Open hands, fifth digit. 14. Lower extremity: Tibia, fibula, bilateral feet. 15. Bladder: Normal 16. Genitalia: Male, patient the aware US/US OB /maternal detail IMPRESSION: 1. Single, living, intrauterine with appropriate biometry. 2. Normal survey DISCUSSION: I reviewed today's ultrasound findings. We discussed the limitations of ultrasound in diagnosing aneuploidy and other congenital abnormalities. I reviewed the differences between screening test and diagnostic test. Amniocentesis was discussed and declined. She was informed that the baseline incidence of congenital abnormalities is approximately 3-5%. Not all these conditions are diagnosable in utero. RECOMMENDATIONS: 1. Follow-up when necessary Thank you for allowing me to participate in her care. Total time 20 minutes. The time spent was devoted to counseling the patient about the disease and diagnosis, coordinating care including reviewing her records, pertinent lab data and studies, as well as discussing diagnostic evaluation and workup, plan therapeutic interventions and future disposition of care. This includes any additional research needed to obtain further information in formulating the plan of care of this patient. This note was generated with a voice recognition program. Please excuse any errors which may have been overlooked during my review of this note. Sometimes these errors may affect the content or meaning of a given sentence.
== END 2020-11-30 12:57 | disposition home or self-care (01) ==
LOC: HO.US 12:56
PROVIDERS: Visit Provider Obstetrics & Gynecology
DX: Z36.3 Encounter for antenatal screening for malformations (principal)
CPT/HCPCS: 76811

== ENCOUNTER → 2020-12-24 10:29 | Outpatient (BNVA) | payer OTHER, SELFPAY | PROVIDERS: PCP Physician Assistant; Visit Provider Obstetrics & Gynecology | DX: Z34.90 Encounter for supervision of normal pregnancy, unspecified, unspecified trimester (principal); Z3A.22 22 weeks gestation of pregnancy | CPT/HCPCS: 99212 ==

== ENCOUNTER 2021-01-21 10:18 | Outpatient (REF) | payer OTHER, SELFPAY ==
[2021-01-21 12:37] LABS: MANUAL DIFF FLAG NO
[2021-01-21 12:39] LABS: Basophils Percent Auto 0.2 % (0-2); Eosinophils Absolute Auto 0.1 X10*3/uL (0.0-0.4); Eosinophils Percent Auto 0.9 % (0-4); Hematocrit 32.9 % (37-47); Imm Gran Abs Auto 0.03 X10*3/uL (0.00-0.03); Imm Gran Pct Auto 0.3 % (0.0-0.4); Lymphocytes Absolute Auto 1.5 X10*3/uL (1.2-4.9); Lymphocytes Percent Auto 14.5 % (20-40); Mean Corpuscular HGB Conc 33.4 g/dl (31.0-35.0); Mean Corpuscular Hemoglobin 28.2 pg (27.0-33.0); Mean Corpuscular Volume 84.4 fL (80-98); Mean Platelet Volume 10.4 fL (9.4-12.3); Monocytes Absolute Auto 0.7 X10*3/uL (0.1-1.2); Monocytes Percent Auto 6.6 % (2-11); Neutrophils Percent Auto 77.5 % (45-73); Platelet Count 229 X10*3/uL (160-400); Red Cell Distribution Width 13.7 % (11.0-16.0); White Blood Count 10.4 X10*3/uL (4.8-10.8)
[2021-01-21 13:06] LABS: Glucose 1 Hour PP 50gm Dose 86 mg/dL (60-140)
[2021-01-21 13:14] LABS: Alanine Aminotransferase 117 U/L (0-31); Albumin Level 3.3 g/dL (3.5-5.0); Alkaline Phosphatase 137 U/L (39-117); Anion Gap 12 (12-20); Aspartate Amino Transferase 66 U/L (5-31); Bilirubin Total 1.2 mg/dL (0.0-1.0); Blood Urea Nitrogen 9 mg/dL (9-16); Calcium 8.7 mg/dL (8.4-10.2); Carbon Dioxide 24 mmol/L (22-29); Chloride 106 mmol/L (96-108); Estimated Glomerular Filt Rate > 60; Glucose Random 79 mg/dL (60-115); Potassium 4.3 mmol/L (3.3-5.1); Sodium 138 mmol/L (135-145); Total Protein 6.7 g/dL (6.5-8.0); Uric Acid 4.6 mg/dL (2.4-5.7)
[2021-01-21 13:35] LABS: Syphilis Screen Nonreactive (Nonreactive)
[2021-01-21 14:45] LABS: Creatinine Urine 238.08 mg/dL; Total Protein Urine Random 24 mg/dL (<12)
[2021-01-22 01:34] LABS: CT PCR NOT DETECTED (Not Detect.); NG PCR NOT DETECTED (Not Detect.)
== END 2021-01-21 10:19 | disposition home or self-care (01) ==
LOC: HO.LAB 10:18
PROVIDERS: Advanced Practice Midwife; PCP Physician Assistant; Visit Provider Obstetrics & Gynecology
DX: O99.212 Obesity complicating pregnancy, second trimester (principal); E66.01 Morbid (severe) obesity due to excess calories; O26.892 Other specified pregnancy related conditions, second trimester; R74.8 Abnormal levels of other serum enzymes; Z3A.26 26 weeks gestation of pregnancy; Z87.19 Personal history of other diseases of the digestive system; Z87.59 Personal history of other complications of pregnancy, childbirth and the puerperium
CPT/HCPCS: 36415; 80053; 82951; 84156; 84550; 85025; 86780; 87491; 87591; 99212

== ENCOUNTER 2021-01-25 09:45 | Outpatient (REF) | payer OTHER, SELFPAY ==
--- NOTE | ~2021-01-25 | US_ITS ---
EXAMINATION: OBSTETRICAL ULTRASOUND, Follow up HISTORY: 30-year-old at the 26.6 weeks of gestation High BMI Size date discrepancy COMPARISON: 11/30/2020 TECHNIQUE: Real time transabdominal imaging with color and M-mode Doppler. PRESENTATION: Vertex PLACENTA LOCATION: Posterior without previa AMNIOTIC FLUID: Deep vertical pocket 7.5 cm MEASUREMENTS: 1. Biparietal Diameter: 7.3 cm; 29.2 wks 2. Head Circumference: 26.7 cm; 29.1 wks 3. Abdominal Circumference: 24.4 cm; 28.5 wks 4. Femur Length: 5.2 cm; 27.5 wks 5. Heart Rate: 134 beats per minute WEIGHT: EFW: 1226 grams (2 lbs 11 oz) -- 93 %. GESTATIONAL AGE: 1. Established GA: 26.6 wks 2. GA from [facility]: 28.5 wks ESTIMATED DATE OF DELIVERY: 1. Established EVA: 04/27/2021 2. EVA from [facility]: 04/14/2021 US/US OB follow up IMPRESSION: 1. A single active fetus is in vertex presentation 2. Size greater than dates, EFW corresponds to 93rd percentile 3. Normal amniotic fluid volume 1. Although the EFW corresponds to 93rd percentile, this is not predictive of macrosomia at term. 2. Follow-up evaluation approximately one month is suggested. 3. 1 hour GLT pending. Thank you very much for this referral. This note was generated with a voice recognition program. Please excuse any errors which may have been overlooked during my review of this note. Sometimes these errors may affect the content or meaning of a given sentence.
== END 2021-01-25 09:46 | disposition home or self-care (01) ==
LOC: HO.US 09:45
PROVIDERS: Visit Provider Obstetrics & Gynecology
DX: O99.212 Obesity complicating pregnancy, second trimester (principal); E66.01 Morbid (severe) obesity due to excess calories; Z3A.26 26 weeks gestation of pregnancy
CPT/HCPCS: 76816

== ENCOUNTER 2021-02-04 10:46 | Outpatient (REF) | payer OTHER, SELFPAY ==
--- NOTE | ~2021-02-04 | US_ITS ---
EXAMINATION: US OBSTETRICAL (BIOPHYSICAL PROFILE) CLINICAL INFORMATION: Liver and biliary tract disorders COMPARISON: Previous OB ultrasound most recent 01/25/2021 TECHNIQUE: Ultrasound of the pelvis is performed. Biophysical profile is performed over 30 minutes with assessment of breathing, gross body movement, tone, and qualitative amniotic fluid volume. Each matrix is scored 0 or 2, depending if the metric is present. Maximum total score possible is 8. Examination is not intended to assess for anomalies. FINDINGS: POSITION: Cephalic PLACENTA: Posterior. Grade 1 AMNIOTIC FLUID INDEX: 16.1 cm CARDIAC ACTIVITY: 136 beats per minute BIOPHYSICAL PROFILE: Motion: 2 Tone: 2 Breathin Amniotic Fluid: 2 Total score: 8 US/US OB biophysical profile IMPRESSION: 1. Single intrauterine gestation in cephalic position with posterior placenta. 2. Total biophysical score is 8 (scale 0-8). 3. Amniotic fluid index 16.1 cm. 4. cardiac activity 136 beats per minute.
[2021-02-04 12:40] LABS: Hematocrit 32.6 % (37-47); Hemoglobin 10.5 g/dl (12.0-16.0); Mean Corpuscular HGB Conc 32.2 g/dl (31.0-35.0); Mean Corpuscular Hemoglobin 27.3 pg (27.0-33.0); Mean Corpuscular Volume 84.9 fL (80-98); Mean Platelet Volume 10.7 fL (9.4-12.3); Platelet Count 232 X10*3/uL (160-400); Red Blood Count 3.84 X10*6/uL (4.20-5.50); Red Cell Distribution Width 13.6 % (11.0-16.0)
[2021-02-04 13:16] LABS: Creatinine Urine 175.14 mg/dL; Protein/Creatinine Ratio, Ur 0.21 (<0.2); Total Protein Urine Random 36 mg/dL (<12)
[2021-02-04 13:30] LABS: Alanine Aminotransferase 152 U/L (0-31); Albumin Level 3.2 g/dL (3.5-5.0); Alkaline Phosphatase 125 U/L (39-117); Anion Gap 13 (12-20); Aspartate Amino Transferase 57 U/L (5-31); Blood Urea Nitrogen 6 mg/dL (9-16); Calcium 8.4 mg/dL (8.4-10.2); Carbon Dioxide 21 mmol/L (22-29); Chloride 106 mmol/L (96-108); Estimated Glomerular Filt Rate > 60; Glucose Random 89 mg/dL (60-115); Potassium 4.1 mmol/L (3.3-5.1); Sodium 136 mmol/L (135-145); Total Protein 6.4 g/dL (6.5-8.0)
== END 2021-02-04 10:47 | disposition home or self-care (01) ==
LOC: HO.LAB 10:46
PROVIDERS: PCP Physician Assistant; Visit Provider Obstetrics & Gynecology
DX: O26.619 Liver and biliary tract disorders in pregnancy, unspecified trimester (principal); K83.1 Obstruction of bile duct
CPT/HCPCS: 36415; 59025; 76819; 80053; 84156; 84550; 85027; 99212

== ENCOUNTER 2021-02-08 10:31 | Outpatient (REF) | payer OTHER, SELFPAY ==
--- NOTE | ~2021-02-08 | US_ITS ---
EXAMINATION: OBSTETRICAL ULTRASOUND, Follow up HISTORY: 30-year-old at 28.6 weeks of gestation Intrahepatic cholestasis of High BMI COMPARISON: 02/04/2021 TECHNIQUE: Real time transabdominal imaging with color and M-mode Doppler. PRESENTATION: Vertex PLACENTA LOCATION: Posterior without previa AMNIOTIC FLUID: SHRUTHI 18.8 cm MEASUREMENTS: 1. Biparietal Diameter: 7.8 cm; 31.4 wks 2. Head Circumference: 27.9 cm; 30.4 wks 3. Abdominal Circumference: 27.5 cm; 31.5 wks 4. Femur Length: 5.4 cm; 28.6 wks 5. Heart Rate: 133 beats per minute WEIGHT: EFW: 1606 grams (3 lbs 9 oz) -- 93 %. Lateral ventricles, posterior fossa, four-chamber view of the heart, stomach, kidneys and bladder are within normal limits. BIOPHYSICAL PROFILE: Motion: 2 Tone: 2 Breathin Amniotic Fluid: 2 Total score: 8/8 GESTATIONAL AGE: 1. Established GA: 28.6 wks 2. GA from [facility]: 30.5 wks ESTIMATED DATE OF DELIVERY: 1. Established EVA: 04/27/2021 2. EVA from [facility]: 04/14/2021 US/US OB biophysical profile IMPRESSION: 1. A single active fetus is seen in vertex presentation 2. Size greater than dates, EFW corresponds to 93rd percentile 3. Reassuring biophysical profile with normal amniotic fluid volume. She informs me that she has been diagnosed with the intrahepatic cholestasis of . She started ursodiol 300 mg by mouth twice a day. Recently liver function test was noted to be elevated. I briefly discussed the increased risk of adverse outcome in the setting of the intrahepatic cholestasis of . She would need weekly biophysical profile and NST and be prepared for possible delivery. She is planning to transfer her care to the [facility]. I advised her to inquire about betamethasone injection. Thank you very much for this referral. Total time 20 minutes. The time spent was devoted to counseling the patient about the disease and diagnosis, coordinating care including reviewing her records, pertinent lab data and studies, as well as discussing diagnostic evaluation and workup, plan therapeutic interventions and future disposition of care. This includes any additional research needed to obtain further information in formulating the plan of care of this patient. This note was generated with a voice recognition program. Please excuse any errors which may have been overlooked during my review of this note. Sometimes these errors may affect the content or meaning of a given sentence.
== END 2021-02-08 10:32 | disposition home or self-care (01) ==
LOC: HO.US 10:31
PROVIDERS: PCP Physician Assistant; Visit Provider Obstetrics & Gynecology
DX: O26.619 Liver and biliary tract disorders in pregnancy, unspecified trimester (principal); K83.1 Obstruction of bile duct
CPT/HCPCS: 76819

== ENCOUNTER 2021-03-04 20:36 | Emergency (ER) | payer OTHER, SELFPAY ==
[2021-03-04 22:32] VITALS: BP 99/54; PULSE 72; RESP 17; TEMP 36.1; O2SAT 97; BMI 46.0
--- NOTE | 2021-03-05 00:19 | ED_ITS ---
HPI - General Adult General Chief complaint: Fall Stated complaint: fall in tub Source: patient Mode of arrival: ambulatory Limitations: no limitations History of Present Illness HPI narrative: Patient presents to the ED for right buttock pain after falling onto her butt on the tub. Patient denies hitting head or loss of consciousness. Patient denies any other symptoms. Patient states she is 32 weeks . Patient denies any abdominal pain, nausea, vomiting, vaginal discharge, or vaginal bleeding. Related Data Home Medications Medication Instructions Recorded Confirmed acetaminophen 500 mg tablet 500 mg PO Q6H PRN 10/05/20 10/25/20 diphenhydramine HCl 25 mg capsule 25 mg PO BEDTIME 02/04/21 metoclopramide HCl 5 mg tablet 5 mg PO QIDACHS 02/04/21 ursodiol 300 mg capsule 600 mg PO DAILY 02/04/21 Previous Rx's Medication Instructions Recorded aspirin 81 mg tablet,delayed 162 mg PO DAILY #60 tab 10/25/20 release clotrimazole 1 % vaginal cream 1 appful VAGINAL BEDTIME #45 g 10/25/20 vitamins with calcium 1 tab PO DAILY 30 Days #30 tab 11/26/20 no.72-iron 29 mg-folic acid 1 mg tablet Allergies Allergy/AdvReac Type Severity Reaction Status Date / Time adhesive tape Allergy Intermediate BLISTERS/RA Verified 03/04/21 22:31 latex [LATEX] Allergy Intermediate BLISTERS/RA Verified 03/04/21 22:31 Review of Systems Review of Systems: Yes all other systems are reviewed and are negative Constitutional: Constitutional: Reports as per HPI and Reports no additional constitutional complaints Eyes: Eyes: Reports as per HPI and Reports no additional eye complaints ENT: Reports system reviewed and no additional complaints, except as documented and Reports as per HPI Cardiovascular: Cardiovascular: Reports as per HPI and Reports no additional cardiovascular complaints Respiratory: Respiratory: Reports as per HPI and Reports no additional respiratory complaints Gastrointestinal: Gastrointestinal: Reports as per HPI and Reports no additional gastrointestinal complaints Genitourinary: Genitourinary: Reports no additional female genitourinary comp laints and Reports as per HPI Musculoskeletal: Musculoskeletal: Reports no additional musculoskeletal complaints and Reports as per HPI Comments: Right buttock pain Neurologic: Reports system reviewed and no additional complaints, except as documented and Reports as per HPI [facility] Past Medical History Medical History Anemia History of cholestasis during Migraine Obesity Panic attack Papanicolaou smear for cervical cancer screening Renal calculi Umbilical hernia Vitamin D deficiency Surgical History Hx of bilateral breast reduction surgery Hx of tubal ligation Family History Family History Father Heart attack CVD (cardiovascular disease) Mother Depression HTN (hypertension) Migraine Anxiety Maternal Grandmother HTN (hypertension) Breast cancer Uterine cancer Brother ADHD Sister Depression Maternal Aunt Breast cancer Paternal Grandmother Diabetes mellitus Paternal Grandfather IDDM (insulin dependent diabetes mellitus) Family/Other Cervical cancer Social History Social History Alcohol intake: never Patient Tobacco Use Status: Never used Tobacco Use of substances other than those prescribed or required for medical reasons: No Advance Directives: No Advance Directives Information Provided: No Patient : Yes service: No Current occupational status: unemployed Gender identity: female Physical Exam Vital Signs: Vital Signs: Last Vital Signs Temp 97.0 F 03/04/21 22:32 Pulse 75 03/05/21 00:40 Resp 18 03/05/21 00:40 BP 102/60 03/05/21 00:40 Pulse Ox 99 03/05/21 00:40 Body Mass Index 46.0 Const: General: cooperative, healthy appearing, comfortable, no acute distress, well developed, alert, awake and Physically active Orientation/consciousness: patient oriented x3 HENMT: Head: Yes normal to inspection, Yes No palpable skull fracture present, Yes normocephalic, Yes atraumatic, No abrasion, No Acrocyanosis present, No Ba ttle's sign, No contusion, No cranial bruits, No hematoma, No laceration, No occ ipital foramen tenderness, No palpable skull fracture, No raccoon eyes, No scalp lesion, No scalp tenderness, No Temporal artery tenderness present and No periorbital ecchymosis Eyes: General: appearance normal, both eyes and all related structures Neck: Neck: Yes normal visual inspection, Yes full ROM, Yes no lymphadenopathy, Yes no meningeal signs, Yes trachea midline, Yes supple and No tender Chest: Chest palpation & inspection: normal inspection of the chest and normal palpation of entire chest wall Resp: Effort & Inspection: normal respiratory effort and able to speak in complete sentences Auscultation: clear to auscultation bilaterally Cardio: Jugular venous distension: no JVD Heart sounds: S1 normal heart sound present and S2 normal heart sound present GI: Inspection: Yes normal to inspection and No abdominal wall ecchymosis Palpation (GI): Soft to palpation, not firm, nontender, no guarding and not rigid : General: No CVA tenderness and Yes no CVA tenderness Back/Spine/Pelvis: Other: Positive for right mild buttock tenderness Back: no CVA tenderness, No CVA tenderness and No back tenderness Skin: General skin exam: no rashes or lesions noted and elasticity normal Neuro: General: patient oriented x3, gait normal, no meningeal signs and CN's II-XI intact bilaterally Cranial nerves: Yes CN's II-XII intact bilaterally Extrem: General: Yes normal to inspection and Yes full ROM Psych: Appearance: grossly normal, well kempt and not disheveled Course Course Course Narrative: No imaging indicated. heart rate 135 Reevaluation(s) Reevaluation #1: Discussed with Dr. Miguel Angel Vallejo about the case and states should patient be transferred to [facility] for monitoring although patient does not have an OBGYN complaint. Reevaluation #2: Patient refused to be wait to be transferred for heart monitoring. She was informed it was necessary to make sure the baby's is okay to decrease chances of demise or any complications, but patient refused. Patient even inform possibility of if there is demise and she become septic, but patient refused and agreeable to sign against medical advice. Medical Decision Making [facility] Narrative Medical decision making narrative: Sacral contusion Discharge Plan Discharge Clinical Impression: Fall Patient Disposition: Left Against Medical Advice Instructions: Contusion in Adults (ED) Additional Instructions: You are refusing transfer to [facility] for monitoring, as recommended by our OBGYN Dr. Michelle. If you change on my please go to [facility] ED immediately. return to the ED immediately for any headache, dizziness, abdominal pain, vaginal bleeding, vaginal discharge, chest pain, shortness of breath, bloody urine, blood in stool, or any other concerning symptoms. You can only take Tylenol for the pain. Please follow-up with your OBGYN Prescriptions: No Action Plus 29 mg iron- 1 mg tablet 1 tab PO DAILY 30 Days Qty: 30 RF: 11 diphenhydramine HCl [Allergy (diphenhydramine)] 25 mg capsule 25 mg PO BEDTIME RF: 0 metoclopramide HCl 5 mg tablet 5 mg PO QIDACHS RF: 0 ursodiol 300 mg capsule 600 mg PO DAILY RF: 0 acetaminophen [Tylenol Extra Strength] 500 mg tablet 500 mg PO Q6H PRNRF: 0 aspirin [Adult Low Dose Aspirin] 81 mg tablet,delayed release (DR/EC) 162 mg PO DAILY Qty: 60 RF: 10 clotrimazole 1 % cream 1 appful vaginal BEDTIME Qty: 45 RF: 3 Stand Alone Forms: Against Medical Advice Interventions: ED Discharge Assessment Last Done: 03/05/21 00:46 Discharge Date/Time: 03/05/21 00:47 Print Language: Monegasque
[2021-03-05 00:40] VITALS: BP 102/60; PULSE 75; RESP 18; O2SAT 99
--- NOTE | 2021-03-05 00:43 | PC.NURSE ---
PT EVALUATED BY ELIZABETH KHOURY. AFTER DISCUSSION BETWEEN DR YANG AND PENG, MONITORING WAS RECOMMENDED DUE TO FALL. PT REFUSED TRANSPORT TO [facility]. DENIES ANY OB RELATED COMPLAINTS. C/O BACK AND FINGER PAIN S/P FALL. PT AMBULATORY, GAIT STEADY. NEUROS INTACT. RISKS UP TO AND INCLUDING HARM TO FETUS DISCUSSED WITH PATIENT BY PROVIDER AND RN. PT CONTINUES TO REFUSE MONITORING.
== END 2021-03-05 00:47 | disposition left against medical advice (07) ==
PROVIDERS: Emergency Provider Internal Medicine; PCP Physician Assistant
DX: O9A.213 Injury, poisoning and certain other consequences of external causes complicating pregnancy, third trimester (principal); S30.0XXA Contusion of lower back and pelvis, initial encounter; Z3A.32 32 weeks gestation of pregnancy; W18.2XXA Fall in (into) shower or empty bathtub, initial encounter; Y93.E1 Activity, personal bathing and showering; Y92.9 Unspecified place or not applicable; Y99.9 Unspecified external cause status
CPT/HCPCS: 99284

== ENCOUNTER 2021-05-15 09:22 | Outpatient (REF) | payer OTHER, SELFPAY ==
[2021-05-15 10:15] LABS: Hemoglobin 12.8 g/dl (12.0-16.0); Mean Corpuscular Hemoglobin 26.6 pg (27.0-33.0); Mean Corpuscular Volume 83.2 fL (80-98); Mean Platelet Volume 11.2 fL (9.4-12.3); Platelet Count 351 X10*3/uL (160-400); Red Blood Count 4.81 X10*6/uL (4.20-5.50); Red Cell Distribution Width 13.5 % (11.0-16.0); White Blood Count 9.9 X10*3/uL (4.8-10.8)
[2021-05-15 11:05] LABS: Alanine Aminotransferase 39 U/L (0-31); Albumin Level 4.3 g/dL (3.5-5.0); Alkaline Phosphatase 80 U/L (39-117); Anion Gap 15 (12-20); Aspartate Amino Transferase 24 U/L (5-31); Bilirubin Total 2.1 mg/dL (0.0-1.0); Blood Urea Nitrogen 9 mg/dL (9-16); Calcium 9.5 mg/dL (8.4-10.2); Carbon Dioxide 21 mmol/L (22-29); Chloride 107 mmol/L (96-108); Cholesterol 139 mg/dL; Estimated Glomerular Filt Rate > 60; Glucose Fasting 89 mg/dL (60-99); HDL Cholesterol 38 mg/dL; LDL Cholesterol Calculated 75 mg/dl; Potassium 4.5 mmol/L (3.3-5.1); Sodium 138 mmol/L (135-145); Total Protein 7.8 g/dL (6.5-8.0); Triglycerides 134 mg/dL
[2021-05-15 11:18] LABS: Estimated Average Glucose 88 mg/dL; Hemoglobin A1c % 4.7 %
[2021-05-15 11:28] LABS: TSH reflex Free T4 1.46 uIU/mL (0.32-4.0)
== END 2021-05-15 09:23 | disposition home or self-care (01) ==
LOC: HO.LAB 09:22
PROVIDERS: PCP Physician Assistant; Visit Provider Physician Assistant
DX: Z39.2 Encounter for routine postpartum follow-up (principal); I10 Essential (primary) hypertension
CPT/HCPCS: 36415; 80053; 80061; 83036; 84443; 85027; 99212

== ENCOUNTER → 2021-06-26 08:50 | Outpatient (BNVA) | payer OTHER, SELFPAY | PROVIDERS: Visit Provider Obstetrics & Gynecology | DX: Z30.42 Encounter for surveillance of injectable contraceptive (principal) | CPT/HCPCS: 96372; 99211 ==

== ENCOUNTER 2021-08-07 10:00 | Outpatient (REF) | payer OTHER, SELFPAY | END 2021-08-07 10:01 | disposition home or self-care (01) | LOC: HO.LAB 10:00 | PROVIDERS: PCP Physician Assistant; Visit Provider Internal Medicine | DX: Z20.822 Contact with and (suspected) exposure to COVID-19 (principal) | CPT/HCPCS: C9803; U0003; U0005 ==

== ENCOUNTER → 2021-08-28 11:32 | Outpatient (BNVA) | payer OTHER, SELFPAY | PROVIDERS: PCP Physician Assistant; Visit Provider Obstetrics & Gynecology ==

== ENCOUNTER → 2021-09-16 08:20 | Outpatient (BNVA) | payer OTHER, SELFPAY | PROVIDERS: PCP Physician Assistant; Visit Provider Obstetrics & Gynecology ==

== ENCOUNTER → 2021-09-19 09:44 | Outpatient (BNVA) | payer OTHER, SELFPAY | PROVIDERS: PCP Physician Assistant; Visit Provider Obstetrics & Gynecology | DX: Z30.9 Encounter for contraceptive management, unspecified (principal) | CPT/HCPCS: 99212 ==

== ENCOUNTER → 2021-10-24 09:22 | Outpatient (BNVA) | payer OTHER, SELFPAY | PROVIDERS: PCP Physician Assistant; Visit Provider Obstetrics & Gynecology | DX: Z01.419 Encounter for gynecological examination (general) (routine) without abnormal findings (principal) | CPT/HCPCS: 99212 ==

== ENCOUNTER 2022-01-17 11:00 | Emergency (ER) | payer OTHER, SELFPAY ==
--- NOTE | ~2022-01-17 | XR_ITS ---
EXAMINATION: XR CHEST CLINICAL INFORMATION: Cough, body aches. COMPARISON: 02/11/2020 chest radiograph. TECHNIQUE: 2 views of the chest were obtained. FINDINGS: No significant abnormality is noted involving the heart, lungs, mediastinum, bony thorax or soft tissues. XR/XR chest 2V IMPRESSION: No acute cardiopulmonary process.
[2022-01-17 11:05] VITALS: BP 102/41; PULSE 80; RESP 18; TEMP 36.2; O2SAT 99; BMI 47.2
[2022-01-17 11:21] LABS: MANUAL DIFF FLAG NO
[2022-01-17 11:24] LABS: Basophils Percent Auto 0.4 % (0-2); Eosinophils Absolute Auto 0.2 X10*3/uL (0.0-0.4); Eosinophils Percent Auto 1.8 % (0-4); Hematocrit 36.9 % (37.0-47.0); Hemoglobin 11.6 g/dl (12.0-16.0); Imm Gran Abs Auto 0.02 X10*3/uL (0.00-0.03); Imm Gran Pct Auto 0.2 % (0.0-0.4); Lymphocytes Absolute Auto 2.3 X10*3/uL (1.2-4.9); Lymphocytes Percent Auto 28.2 % (20-40); Mean Corpuscular HGB Conc 31.4 g/dl (31.0-35.0); Mean Corpuscular Hemoglobin 25.6 pg (27.0-33.0); Mean Corpuscular Volume 81.3 fL (80.0-98.0); Mean Platelet Volume 10.2 fL (9.4-12.3); Monocytes Absolute Auto 0.5 X10*3/uL (0.1-1.2); Monocytes Percent Auto 6.4 % (2-11); Neutrophils Absolute Auto 5.1 x10*3/uL (2.0-8.3); Platelet Count 274 X10*3/uL (160-400); Red Blood Count 4.54 X10*6/uL (4.20-5.50); White Blood Count 8.1 X10*3/uL (4.8-10.8)
[2022-01-17 11:32] LABS: Strep A Nucleic Acid Negative (Negative)
[2022-01-17 11:48] LABS: Appearance Urine CLEAR; Color Urine YELLOW; Glucose Urine UA NEG (NEG); Leukocyte Esterase Urine NEG (NEG); Nitrite Urine NEG (NEG); UACC Culture Trigger NO; Urine Blood TRACE (NEG); Urine Ketones NEG (NEG); Urine Protein NEG (NEG-TRACE)
[2022-01-17 11:48] LABS: Alanine Aminotransferase 10 U/L (0-31); Albumin Level 3.8 g/dL (3.5-5.0); Alkaline Phosphatase 66 U/L (39-117); Anion Gap 8 (12-20); Aspartate Amino Transferase 15 U/L (5-31); Blood Urea Nitrogen 11 mg/dL (9-16); Calcium 9.1 mg/dL (8.4-10.2); Carbon Dioxide 28 mmol/L (22-29); Chloride 106 mmol/L (96-108); Estimated Glomerular Filt Rate > 60; Glucose Random 92 mg/dL (60-115); Potassium 4.1 mmol/L (3.3-5.1); Sodium 138 mmol/L (135-145); Total Protein 7.3 g/dL (6.5-8.0)
[2022-01-17 11:52] LABS: HCG Quantitative < 2 mIU/mL
[2022-01-17 12:04] LABS: COVID-19 Test Negative (Negative); IDNOW Serial# 16C4AD1C
[2022-01-17 12:05] LABS: Influenza A Negative (Negative)
[2022-01-17 12:06] LABS: Influenza B2 Negative (Negative)
[2022-01-17 12:42] LABS: Squamous Epithelial Cell Urine 2+ /LPF
[2022-01-17 12:43] LABS: RBC Urine 0-2 /HPF (0); WBC Urine 0-2 /HPF (0-4)
[2022-01-17 13:34] VITALS: BP 101/48; PULSE 65; RESP 18; O2SAT 98
--- NOTE | 2022-01-17 14:45 | ED_ITS ---
HPI - General Adult General Chief complaint: General Medical Stated complaint: Headache/Earache/nausea Time Seen by Provider: 01/17/22 11:30 Source: patient Mode of arrival: ambulatory Limitations: no limitations History of Present Illness HPI narrative: Patient presents to the emergency department with symptoms of an upper respiratory infection, reporting headache, earache, sore throat, body aches, intermittent dizziness in addition to nausea and diarrhea for 4 days. States that her children have been sick with similar symptoms but less severe than hers. Related Data Previous Rx's Medication Instructions Recorded amoxicillin 875 mg-potassium 1 tab PO Q12H 7 Days #14 tab 01/17/22 clavulanate 125 mg tablet Allergies Allergy/AdvReac Type Severity Reaction Status Date / Time adhesive tape Allergy Intermediate BLISTERS/RA Verified 09/19/21 10:11 latex [LATEX] Allergy Intermediate BLISTERS/RA Verified 09/19/21 10:11 Review of Systems 2 Review of Systems: Constitutional: positive fatigue No weight loss, fever, chills HEENT: Positive ear pain. Positive congestion. Positive sore throat Skin: No rash or itching. Cardiovascular: No chest pain, chest pressure or chest discomfort. No palpitations or pedal edema. Respiratory: No shortness of breath, cough or sputum production. Gastrointestinal: positive nausea, positive diarrhea No vomiting. No abdominal pain or blood in stool. Genitourinary: No burning micturition. No urinary frequency or incontinence. Neurologic: positive headache. Positive dizziness. No syncope, unilateral weakness, ataxia, numbness or tingling in the extremities. No change in bowel or bladder control. Musculoskeletal: positive body aches. No back pain, joint pain or stiffness. Hematologic: No bleeding or bruising. Lymphatics: No enlarged lymph nodes. Psychiatric:No depression or anxiety. Endocrine: No polyuria or polydipsia. Yes all other systems are reviewed and are negative [facility] Past Medical History Attestation statement: The following information was validated with the patient. Source: old records reviewed Medical History Anemia History of cholestasis during Migraine Obesity Panic attack Papanicolaou smear for cervical cancer screening Renal calculi Umbilical hernia Vitamin D deficiency Surgical History Hx of bilateral breast reduction surgery Hx of tubal ligation Family History Family History Father Heart attack CVD (cardiovascular disease) Mother Depression HTN (hypertension) Migraine Anxiety Maternal Grandmother HTN (hypertension) Breast cancer Uterine cancer Brother ADHD Sister Depression Maternal Aunt Breast cancer Paternal Grandmother Diabetes mellitus Paternal Grandfather IDDM (insulin dependent diabetes mellitus) Family/Other Cervical cancer Daughter Mental health disorder Son Mental health disorder Social History Social History Housing: Apartment Alcohol intake: never Patient Tobacco Use Status: Never used Tobacco e-Cigarette/Vaping Use: Never Used Second Hand Smoke Exposure: No Advance Directives: No Advance Directives Information Provided: No Patient : No service: No Current occupational status: unemployed Gender identity: Female Physical Exam ED Vital Signs: Vital Signs - 24 hr 01/17/22 11:05 01/17/22 13:34 Temperature 97.2 F Pulse Rate 80 65 Respiratory Rate 18 18 Blood Pressure 102/41 L 101/48 L Pulse Oximetry 99 98 BMI result Body Mass Index 47.2 Vital signs have been reviewed as normal and appeared to be correct. Blood pressure 102/41.? Heart rate normal.? Respiration rate normal. Temperature normal.? Oxygen saturation normal. Appearance: Alert.?Oriented to person, place and time. No acute distress.?Norm al affect. Head: normocephalic, atraumatic, palpable tenderness over the frontal and maxillary sinus Eyes: Pupils equal, round and reactive to light.?EOMi ENT: posterior pharynx with white exudate, 2+ tonsillar hypertrophy, erythema Neck: Normal inspection.? Neck supple.?? CVS: Heart sounds normal. Normal heart rate and rhythm.? Pulses normal.?? Respiratory: No respiratory distress.? Lung sounds clear to auscultation bilaterally?? Abdomen: Soft and non-tender. Normoactive bowel sounds. Skin: Skin warm and dry.? Normal skin color.? ? Extremities: No lower extremity edema.? No calf ttp? Neuro: Moves all extremities spontaneously. Sensation intact bilaterally. CN II- XII intact. No focal neuro deficits. Ambulates with normal steady gait. Course Course Course Narrative: Patient is a 31-year-old female with a past medical history of anemia, migraines, renal calculi, and vitamin-D deficiency presenting with upper respiratory symptoms in addition to nausea and diarrhea for 4 days. Initial testing from triage reveals strep testing to be negative, COVID- 19 influenza testing negative. CBC was overall unremarkable with a mild normocytic anemia with hemoglobin 11.6 and hematocrit 39.9. CMP normal. Urinalysis frequent sinus infection and microscopic hematuria, test negative. Clinically there is concern for pharyngitis in addition to sinusitis, not consistent with peritonsillar abscess, or acute otitis media. Chest x-ray reveals no acute disease. She is tolerating p.o. food and liquids. Discussed findings with patient, treatment with course of Augmentin for bacterial infection, discussed outpatient follow-up with PCP, advised reasons to return back to the emergency department, conservative care including rest, hydration, Tylenol and ibuprofen as needed for fever or pain, all questions were answered and patient is agreeable to plan of care for discharge home. Medical Decision Making Lab Data Result diagrams: 01/17/22 11:16 01/17/22 11:16 Labs: Lab Results 01/17/22 01/17/22 01/17/22 Range/Units 11:16 11:16 11:16 WBC 8.1 (4.8-10.8) X10*3/uL RBC 4.54 (4.20-5.50) X10*6/uL Hgb 11.6 L (12.0-16.0) g/dl Hct 36.9 L (37.0-47.0) % MCV 81.3 (80.0-98.0) fL MCH 25.6 L (27.0-33.0) pg MCHC 31.4 (31.0-35.0) g/dl RDW 13.0 (11.0-16.0) % Plt Count 274 (160-400) X10*3/uL MPV 10.2 (9.4-12.3) fL Immature Gran % (Auto) 0.2 (0.0-0.4) % Neut % (Auto) 63.0 (45-73) % Lymph % (Auto) 28.2 (20-40) % [place] % (Auto) 6.4 (2-11) % Eos % (Auto) 1.8 (0-4) % Baso % (Auto) 0.4 (0-2) % Lymph # (Auto) 2.3 (1.2-4.9) X10*3/uL [place] # (Auto) 0.5 (0.1-1.2) X10*3/uL Eos # (Auto) 0.2 (0.0-0.4) X10*3/uL Baso # (Auto) 0.0 (0.0-0.2) X10*3/uL Abs Immat Gran (auto) 0.02 (0.00-0.03) X10*3/uL Absolute Neuts (auto) 5.1 (2.0-8.3) x10*3/uL Absolute Nucleated RBC 0.000 (0.0-0.012) X10*3/uL Nucleated RBC % (auto) 0.0 (0.0-0.2) /100WBC Sodium 138 (135-145) mmol/L Potassium 4.1 (3.3-5.1) mmol/L Chloride 106 (96-108) mmol/L Carbon Dioxide 28 (22-29) mmol/L Anion Gap 8 L (12-20) BUN 11 (9-16) mg/dL Creatinine 0.75 (0.5-1.4) mg/dL Estim Creat Clear Calc 127.0 Estimated GFR > 60 Random Glucose 92 (60-115) mg/dL Calcium 9.1 (8.4-10.2) mg/dL Total Bilirubin 1.0 (0.0-1.0) mg/dL AST 15 (5-31) U/L ALT 10 (0-31) U/L Alkaline Phosphatase 66 (39-117) U/L Total Protein 7.3 (6.5-8.0) g/dL Albumin 3.8 (3.5-5.0) g/dL Beta HCG, Quant < 2 mIU/mL Urine Color Urine Appearance Urine pH (5.0-8.0) Ur Specific [place] (1.005-1.025) Urine Protein (NEG-TRACE) MG/DL Urine Glucose (UA) (NEG) MG/DL Urine Ketones (NEG) MG/DL Urine Blood (NEG) Urine Nitrite (NEG) Ur Leukocyte Esterase (NEG) Urine RBC (0) /HPF Urine WBC (0-4) /HPF Ur Squamous Epith Cells /LPF Urine Bacteria /LPF COVID-19 (NELLIE) (Negative) COVID-19 Clin Com Influenza Type A (AURELIA) (Negative) Influenza Type B (AURELIA) (Negative) Influenza A & B Note S. pyogenes GrpA AURELIA Negative (Negative) 01/17/22 01/17/22 01/17/22 Range/Units 11:37 11:37 11:37 WBC (4.8-10.8) X10*3/uL RBC (4.20-5.50) X10*6/uL Hgb (12.0-16.0) g/dl Hct (37.0-47.0) % MCV (80.0-98.0) fL MCH (27.0-33.0) pg MCHC (31.0-35.0) g/dl RDW (11.0-16.0) % Plt Count (160-400) X10*3/uL MPV (9.4-12.3) fL Immature Gran % (Auto) (0.0-0.4) % Neut % (Auto) (45-73) % Lymph % (Auto) (20-40) % [place] % (Auto) (2-11) % Eos % (Auto) (0-4) % Baso % (Auto) (0-2) % Lymph # (Auto) (1.2-4.9) X10*3/uL [place] # (Auto) (0.1-1.2) X10*3/uL Eos # (Auto) (0.0-0.4) X10*3/uL Baso # (Auto) (0.0-0.2) X10*3/uL Abs Immat Gran (auto) (0.00-0.03) X10*3/uL Absolute Neuts (auto) (2.0-8.3) x10*3/uL Absolute Nucleated RBC (0.0-0.012) X10*3/uL Nucleated RBC % (auto) (0.0-0.2) /100WBC Sodium (135-145) mmol/L Potassium (3.3-5.1) mmol/L Chloride (96-108) mmol/L Carbon Dioxide (22-29) mmol/L Anion Gap (12-20) BUN (9-16) mg/dL Creatinine (0.5-1.4) mg/dL Estim Creat Clear Calc Estimated GFR Random Glucose (60-115) mg/dL Calcium (8.4-10.2) mg/dL Total Bilirubin (0.0-1.0) mg/dL AST (5-31) U/L ALT (0-31) U/L Alkaline Phosphatase (39-117) U/L Total Protein (6.5-8.0) g/dL Albumin (3.5-5.0) g/dL Beta HCG, Quant mIU/mL Urine Color YELLOW Urine Appearance CLEAR Urine pH 6.0 (5.0-8.0) Ur Specific [place] 1.010 (1.005-1.025) Urine Protein NEG (NEG-TRACE) MG/DL Urine Glucose (UA) NEG (NEG) MG/DL Urine Ketones NEG (NEG) MG/DL Urine Blood TRACE (NEG) Urine Nitrite NEG (NEG) Ur Leukocyte Esterase NEG (NEG) Urine RBC 0-2 (0) /HPF Urine WBC 0-2 (0-4) /HPF Ur Squamous Epith Cells 2+ /LPF Urine Bacteria NONE /LPF COVID-19 (NELLIE) Negative (Negative) COVID-19 Clin Com See Note Influenza Type A (AURELIA) Negative (Negative) Influenza Type B (AURELIA) Negative (Negative) Influenza A & B Note See Note S. pyogenes GrpA AURELIA (Negative) Discharge Plan Discharge Clinical Impression: Sinusitis, acute, Pharyngitis Patient Disposition: Home, Self-Care Instructions: Pharyngitis (ED), Sinusitis (ED), Upper Respiratory Infection (ED) Additional Instructions: given given a new prescription for an antibiotic, please complete the entire course of this antibiotic. Follow-up with your primary care provider within 5-7 days. Return to the emergency department with any new or worsening symptoms or concerns. Tylenol and ibuprofen can be used as needed for pain and headaches. Be sure to rest, drink plenty of fluids. Prescriptions: New amoxicillin-pot clavulanate 875-125 mg tablet 1 tab PO Q12H 7 Days Qty: 14 0RF Interventions: ED Discharge Assessment Last Done: 01/17/22 15:00 Discharge Date/Time: 01/17/22 15:01
== END 2022-01-17 15:01 | disposition home or self-care (01) ==
PROVIDERS: Emergency Provider Emergency Medicine Emergency Medical Services; PCP Physician Assistant
DX: J01.90 Acute sinusitis, unspecified (principal); J02.9 Acute pharyngitis, unspecified; R51.9 Headache, unspecified; H92.03 Otalgia, bilateral; Z20.822 Contact with and (suspected) exposure to COVID-19; Z79.899 Other long term (current) drug therapy
CPT/HCPCS: 36415; 71046; 80053; 81001; 81003; 84702; 85025; 87502; 87635; 87651; 99283; 99284

== ENCOUNTER 2022-10-28 08:29 | Outpatient (REF) | payer OTHER, SELFPAY ==
[2022-10-28 09:55] LABS: HCG Quantitative 662 mIU/mL
== END 2022-10-28 08:30 | disposition home or self-care (01) ==
LOC: HO.LAB 08:29
PROVIDERS: PCP Physician Assistant; Visit Provider Obstetrics & Gynecology
DX: Z34.90 Encounter for supervision of normal pregnancy, unspecified, unspecified trimester (principal)
CPT/HCPCS: 36415; 84702; 99212

== ENCOUNTER 2022-10-30 08:24 | Outpatient (REF) | payer OTHER, SELFPAY ==
[2022-10-30 09:55] LABS: HCG Quantitative 1363 mIU/mL
== END 2022-10-30 08:25 | disposition home or self-care (01) ==
LOC: HO.LAB 08:24
PROVIDERS: PCP Physician Assistant; Visit Provider Obstetrics & Gynecology
DX: Z34.90 Encounter for supervision of normal pregnancy, unspecified, unspecified trimester (principal)
CPT/HCPCS: 36415; 84702

== ENCOUNTER 2022-10-31 13:17 | Emergency (ER) | payer OTHER, SELFPAY ==
--- NOTE | ~2022-10-31 | US_ITS ---
EXAMINATION: US OBSTETRICAL ULTRASOUND CLINICAL INFORMATION: Early . Pain. Prior history of ectopic . COMPARISON: None. LMP: 09/28/2022. Gestational age by maternal dates is 4 weeks 5 days. Estimated date of delivery by maternal dates is 07/05/2023. TECHNIQUE: Ultrasound of the maternal pelvis is performed using transabdominal and transvaginal transducers. Transvaginal imaging is performed due to inadequate visualization transabdominally. M-mode Doppler is also performed. FINDINGS: There is an intrauterine decidual reaction consistent with the . There is some fluid in the uterine cavity but no double decidual sac sign or visible yolk sac to confirm intrauterine at this time. MATERNAL ADNEXA: The right maternal ovary measures 2.7 x 1.9 x 2.0 cm. The left maternal ovary measures 3.1 x 2.5 x 2.8 cm. There is incidental intraovarian follicle measuring 2.0 x 1.5 x 1.5 cm. No peripheral or internal color flow. There is no significant maternal adnexal mass. No maternal pelvic ascites. US/US OB pelvic and transvaginal IMPRESSION: -Intrauterine decidual reaction consistent with the known , Fluid in uterine cavity but no double decidual sac sign or yolk sac to confirm intrauterine at this time. -No significant adnexal mass. No pelvic ascites. -Recommend follow-up imaging to confirm developing intrauterine .
[2022-10-31 13:19] VITALS: BP 112/69; PULSE 86; RESP 17; TEMP 35.8; O2SAT 99; BMI 52.9
--- NOTE | 2022-10-31 13:21 | ED_ITS ---
HPI - General Adult General Chief complaint: General Medical <PENG Hankins - Last Filed: 10/31/22 13:22> Stated complaint: R neck/shoulder pain <PENG Hankins - Last Filed: 10/31/22 13:22> Time Seen by Provider: 10/31/22 15:55 <PENG Hanknis - Last Filed: 10/31/22 13:22> History of Present Illness HPI narrative: patient complains of pain in the right shoulder and trapezius area, pain is mild but before she had her previous ectopic she did have referred pain to this area She is and has had a 1st visit with Dr. Michelle She has no abdominal or pelvic pain she has no bleeding, her last period was about 5 or 6 weeks ago She has no fainting or feeling faint no dizziness or weakness no numbness no tingling <PENG Espino - Last Filed: 10/31/22 17:30> Related Data Home medications: Home Medications Medication Instructions Recorded Confirmed No Known Home Meds 10/28/22 10/28/22 <PENG Hankins - Last Filed: 10/31/22 13:22> Allergies/adverse reactions: Allergies Allergy/AdvReac Type Severity Reaction Status Date / Time adhesive tape Allergy Intermediate BLISTERS/RA Verified 10/28/22 09:58 SH latex [LATEX] Allergy Intermediate BLISTERS/RA Verified 10/28/22 09:58 SH <PENG Hankins - Last Filed: 10/31/22 13:22> [facility] Past Medical History Source: nursing notes reviewed <PENG Espino - Last Filed: 10/31/22 17:30> Medical History: Medical History Anemia History of cholestasis during Migraine Obesity Panic attack Papanicolaou smear for cervical cancer screening Renal calculi Umbilical hernia Vitamin D deficiency <PENG Hankins - Last Filed: 10/31/22 13:22> Surgical History: Surgical History Hx of bilateral breast reduction surgery Hx of tubal ligation <PENG Hankins - Last Filed: 10/31/22 13:22> Family History Family History: Family History Father Heart attack CVD (cardiovascular disease) Mother Depression HTN (hypertension) Migraine Anxiety Maternal Grandmother HTN (hypertension) Breast cancer Uterine cancer Brother ADHD Sister Depression Maternal Aunt Breast cancer Paternal Grandmother Diabetes mellitus Paternal Grandfather IDDM (insulin dependent diabetes mellitus) Family/Other Cervical cancer Daughter Mental health disorder Son Mental health disorder <PENG Hankins - Last Filed: 10/31/22 13:22> Social History Social History: Social History Housing: Apartment Alcohol intake: never Patient Tobacco Use Status: Never used Tobacco e-Cigarette/Vaping Use: Never Used Second Hand Smoke Exposure: No Advance Directives: No Advance Directives Information Provided: No service: No Current occupational status: unemployed Gender identity: Female <PENG Hankins Last Filed: 10/31/22 13:22> Physical Exam ED Vital Signs: Vital Signs - 24 hr 10/31/22 13:19 Temperature 96.4 F L Pulse Rate 86 Respiratory Rate 17 Blood Pressure 112/69 Pulse Oximetry 99 Oxygen Delivery Method Room Air BMI result Body Mass Index 52.9 <PENG Hankins Last Filed: 10/31/22 13:22> Vital Signs - 24 hr 10/31/22 13:19 Temperature 96.4 F L Pulse Rate 86 Respiratory Rate 17 Blood Pressure 112/69 Pulse Oximetry 99 Oxygen Delivery Method Room Air BMI result Body Mass Index 52.9 <PENG Espino - Last Filed: 10/31/22 17:30> general appearance is comfortable relax no acute distress The eyes anicteric no pallor The pharynx is clear with moist mucous membranes Neck is supple Respiratory no distress The abdomen is soft and nontender The back no CVA tenderness Extremities there is mild tenderness to the anterior right shoulder which has a full range of motion but there is very mild discomfort when she moves the shoulder, skin of the shoulder was normal Mother extremities normal <PENG Espino Last Filed: 10/31/22 17:30> Course Course Course Narrative: RME performed by Veronica España PA-C. Patient is a 32 year old female presenting to the emergency department with right neck and shoulder pain. Patient states that 2 years ago she had an ectopic and it started with right shoulder and neck pain. Labs and US ordered. <PENG Hankins - Last Filed: 10/31/22 13:22> RME performed by Veronica España PA-C. Patient is a 32 year old female presenting to the emergency department with right neck and shoulder pain. Patient states that 2 years ago she had an ectopic and it started with right shoulder and neck pain. Labs and US ordered. ultrasound was done to rule out an ectopic, results of pelvic transvaginal ultrasound is there was an intrauterine decidual reaction consistent with but no yolk sac so it is not enough to confirm an intrauterine at this time There was no adnexal mass no ectopic was seen Patient is already followed up with Dr. Miguel Angel Vallejo and will call his office on Thursday, she does have an ultrasound scheduled next week Thursday and will confirm that that is an appropriate time frame Beta hCG today was 1656, there were no other significant lab findings, urinalysis was negative Well-appearing patient with mild discomfort in the shoulder needed no medication or treatment now, with no findings of ectopic today will follow with her OBGYN Dr. Miguel Angel Vallejo and is informed to return for any pelvic pain or bleeding <PENG Espino - Last Filed: 10/31/22 17:30> Medical Decision Making Lab Data MDM Lab Attestation statement: I reviewed the patient's lab results. <PENG Espino - Last Filed: 10/31/22 17:30> Result Diagrams: 10/31/22 13:48 10/31/22 13:48 <PENG Hankins - Last Filed: 10/31/22 13:22> Labs: Lab Results 10/31/22 10/31/22 10/31/22 Range/Units 13:46 13:48 13:48 WBC 9.8 (4.8-10.8) X10*3/uL RBC 4.37 (4.20-5.50) X10*6/uL Hgb 11.7 L (12.0-16.0) g/dl Hct 35.6 L (37.0-47.0) % MCV 81.5 (80.0-98.0) fL MCH 26.8 L (27.0-33.0) pg MCHC 32.9 (31.0-35.0) g/dl RDW 14.5 (11.0-16.0) % Plt Count 265 (160-400) X10*3/uL MPV 10.3 (9.4-12.3) fL Immature Gran % (Auto) 0.3 (0.0-0.4) % Neut % (Auto) 65.9 (45-73) % Lymph % (Auto) 23.3 (20-40) % [place] % (Auto) 7.8 (2-11) % Eos % (Auto) 2.3 (0-4) % Baso % (Auto) 0.4 (0-2) % Lymph # (Auto) 2.3 (1.2-4.9) X10*3/uL [place] # (Auto) 0.8 (0.1-1.2) X10*3/uL Eos # (Auto) 0.2 (0.0-0.4) X10*3/uL Baso # (Auto) 0.0 (0.0-0.2) X10*3/uL Abs Immat Gran (auto) 0.03 (0.00-0.03) X10*3/uL Absolute Neuts (auto) 6.5 (2.0-8.3) x10*3/uL Absolute Nucleated RBC 0.000 (0.0-0.012) X10*3/uL Nucleated RBC % (auto) 0.0 (0.0-0.2) /100WBC Sodium 138 (135-145) mmol/L Potassium 3.7 (3.3-5.1) mmol/L Chloride 107 (96-108) mmol/L Carbon Dioxide 22 (22-29) mmol/L Anion Gap 13 (12-20) BUN 7 L (9-16) mg/dL Creatinine 0.72 (0.5-1.4) mg/dL Estim Creat Clear Calc 140.7 Estimated GFR > 60 Random Glucose 92 (60-115) mg/dL Calcium 9.0 (8.4-10.2) mg/dL Magnesium 1.6 (1.6-2.6) mg/dL Total Bilirubin 1.0 (0.0-1.0) mg/dL AST 24 (5-31) U/L ALT 30 (0-31) U/L Alkaline Phosphatase 60 (39-117) U/L Total Protein 6.8 (6.5-8.0) g/dL Albumin 3.7 (3.5-5.0) g/dL Beta HCG, Quant 1656 mIU/mL Urine Color Yellow Urine Appearance Clear Urine pH 6.0 (5.0-9.0) Ur Specific [place] 1.015 (1.005-1.025) Urine Protein Negative (Neg-Trace) mg/dL Urine Glucose (UA) Negative (Negative) mg/dL Urine Ketones Negative (Negative) mg/dL Urine Blood Negative (Negative) Urine Nitrite Negative (Negative) Ur Leukocyte Esterase Negative (Negative) <PENG Hankins - Last Filed: 10/31/22 13:22> Lab Results 10/31/22 10/31/22 10/31/22 Range/Units 13:46 13:48 13:48 WBC 9.8 (4.8-10.8) X10*3/uL RBC 4.37 (4.20-5.50) X10*6/uL Hgb 11.7 L (12.0-16.0) g/dl Hct 35.6 L (37.0-47.0) % MCV 81.5 (80.0-98.0) fL MCH 26.8 L (27.0-33.0) pg MCHC 32.9 (31.0-35.0) g/dl RDW 14.5 (11.0-16.0) % Plt Count 265 (160-400) X10*3/uL MPV 10.3 (9.4-12.3) fL Immature Gran % (Auto) 0.3 (0.0-0.4) % Neut % (Auto) 65.9 (45-73) % Lymph % (Auto) 23.3 (20-40) % [place] % (Auto) 7.8 (2-11) % Eos % (Auto) 2.3 (0-4) % Baso % (Auto) 0.4 (0-2) % Lymph # (Auto) 2.3 (1.2-4.9) X10*3/uL [place] # (Auto) 0.8 (0.1-1.2) X10*3/uL Eos # (Auto) 0.2 (0.0-0.4) X10*3/uL Baso # (Auto) 0.0 (0.0-0.2) X10*3/uL Abs Immat Gran (auto) 0.03 (0.00-0.03) X10*3/uL Absolute Neuts (auto) 6.5 (2.0-8.3) x10*3/uL Absolute Nucleated RBC 0.000 (0.0-0.012) X10*3/uL Nucleated RBC % (auto) 0.0 (0.0-0.2) /100WBC Sodium 138 (135-145) mmol/L Potassium 3.7 (3.3-5.1) mmol/L Chloride 107 (96-108) mmol/L Carbon Dioxide 22 (22-29) mmol/L Anion Gap 13 (12-20) BUN 7 L (9-16) mg/dL Creatinine 0.72 (0.5-1.4) mg/dL Estim Creat Clear Calc 140.7 Estimated GFR > 60 Random Glucose 92 (60-115) mg/dL Calcium 9.0 (8.4-10.2) mg/dL Magnesium 1.6 (1.6-2.6) mg/dL Total Bilirubin 1.0 (0.0-1.0) mg/dL AST 24 (5-31) U/L ALT 30 (0-31) U/L Alkaline Phosphatase 60 (39-117) U/L Total Protein 6.8 (6.5-8.0) g/dL Albumin 3.7 (3.5-5.0) g/dL Beta HCG, Quant 1656 mIU/mL Urine Color Yellow Urine Appearance Clear Urine pH 6.0 (5.0-9.0) Ur Specific [place] 1.015 (1.005-1.025) Urine Protein Negative (Neg-Trace) mg/dL Urine Glucose (UA) Negative (Negative) mg/dL Urine Ketones Negative (Negative) mg/dL Urine Blood Negative (Negative) Urine Nitrite Negative (Negative) Ur Leukocyte Esterase Negative (Negative) <PENG Espino - Last Filed: 10/31/22 17:30> Discharge Plan Discharge Clinical Impression: Acute pain of right shoulder, <PENG Hankins - Last Filed: 10/31/22 13:22> Patient Disposition: Home, Self-Care <PENG Hankins - Last Filed: 10/31/22 13:22> Additional Instructions: ultrasound today could not absolutely confirm in the uterus There was no evidence of ectopic now but it is very early so you will need repeat ultrasound You have already seen Dr. Michelle so call his office to let him know about your visit to the ER and the results He has an ultrasound scheduled next week and that may be okay but let is office know what is going on and he will make sure that is an appropriate time to do th e next ultrasound Beta hCG 2 day was 1656, which is increased from yesterday Return to the ER any time for abdominal pain pelvic pain bleeding any worse condition or any concerns <PENG Hankins - Last Filed: 10/31/22 13:22> Prescriptions: No Action No Known Home Meds <PENG Hankins - Last Filed: 10/31/22 13:22> Referrals: Adrian Michelle MD [Physician] - <PENG Hankins - Last Filed: 10/31/22 13:22>
[2022-10-31 13:53] LABS: MANUAL DIFF FLAG NO
[2022-10-31 13:55] LABS: Basophils Percent Auto 0.4 % (0-2); Eosinophils Absolute Auto 0.2 X10*3/uL (0.0-0.4); Eosinophils Percent Auto 2.3 % (0-4); Hematocrit 35.6 % (37.0-47.0); Hemoglobin 11.7 g/dl (12.0-16.0); Imm Gran Abs Auto 0.03 X10*3/uL (0.00-0.03); Imm Gran Pct Auto 0.3 % (0.0-0.4); Lymphocytes Absolute Auto 2.3 X10*3/uL (1.2-4.9); Lymphocytes Percent Auto 23.3 % (20-40); Mean Corpuscular HGB Conc 32.9 g/dl (31.0-35.0); Mean Corpuscular Hemoglobin 26.8 pg (27.0-33.0); Mean Corpuscular Volume 81.5 fL (80.0-98.0); Mean Platelet Volume 10.3 fL (9.4-12.3); Monocytes Absolute Auto 0.8 X10*3/uL (0.1-1.2); Monocytes Percent Auto 7.8 % (2-11); Neutrophils Absolute Auto 6.5 x10*3/uL (2.0-8.3); Neutrophils Percent Auto 65.9 % (45-73); Platelet Count 265 X10*3/uL (160-400); Red Blood Count 4.37 X10*6/uL (4.20-5.50); Red Cell Distribution Width 14.5 % (11.0-16.0); White Blood Count 9.8 X10*3/uL (4.8-10.8)
[2022-10-31 13:58] LABS: Appearance Urine Clear; Color Urine Yellow; Glucose Urine UA Negative (Negative); Leukocyte Esterase Urine Negative (Negative); Nitrite Urine Negative (Negative); Specific Gravity - Urine 1.015 (1.005-1.025); Urine Blood Negative (Negative); Urine Ketones Negative (Negative); Urine Protein Negative (Neg-Trace)
[2022-10-31 14:19] LABS: Alanine Aminotransferase 30 U/L (0-31); Albumin Level 3.7 g/dL (3.5-5.0); Alkaline Phosphatase 60 U/L (39-117); Anion Gap 13 (12-20); Aspartate Amino Transferase 24 U/L (5-31); Blood Urea Nitrogen 7 mg/dL (9-16); Carbon Dioxide 22 mmol/L (22-29); Chloride 107 mmol/L (96-108); Creatinine Clr Calc Pharmacy 140.7; Estimated Glomerular Filt Rate > 60; Glucose Random 92 mg/dL (60-115); HCG Quantitative 1656 mIU/mL; Magnesium 1.6 mg/dL (1.6-2.6); Potassium 3.7 mmol/L (3.3-5.1); Sodium 138 mmol/L (135-145); Total Protein 6.8 g/dL (6.5-8.0)
== END 2022-10-31 17:30 | disposition home or self-care (01) ==
PROVIDERS: Physician Assistant Medical; Emergency Provider Internal Medicine; PCP Physician Assistant
DX: M54.2 Cervicalgia (principal); R10.2 Pelvic and perineal pain; M25.511 Pain in right shoulder; Z79.899 Other long term (current) drug therapy
CPT/HCPCS: 36415; 76801; 76817; 80053; 81003; 83735; 84702; 85025; 99282; 99284

== ENCOUNTER 2022-11-03 11:50 | Outpatient (REF) | payer OTHER, SELFPAY ==
[2022-11-03 13:02] LABS: HCG Quantitative 3567 mIU/mL
== END 2022-11-03 11:51 | disposition home or self-care (01) ==
LOC: HO.LAB 11:50
PROVIDERS: PCP Physician Assistant; Visit Provider Obstetrics & Gynecology
DX: Z34.90 Encounter for supervision of normal pregnancy, unspecified, unspecified trimester (principal)
CPT/HCPCS: 36415; 84702

== ENCOUNTER 2022-11-05 12:08 | Outpatient (REF) | payer OTHER, SELFPAY ==
--- NOTE | ~2022-11-05 | US_ITS ---
EXAMINATION: US OBSTETRICAL ULTRASOUND CLINICAL INFORMATION: Positive test. For size and date. COMPARISON: None. LMP: 09/28/2022. Gestational age by maternal dates not be calculated. Estimated date of delivery by maternal dates is 07/05/2023. TECHNIQUE: Routine transabdominal and transvaginal imaging of pelvis is performed. FINDINGS: There is a single intrauterine gestational sac with no visible yolk sac, embryo/fetus, and cardiac activity. There is no significant subchorionic hemorrhage or hematoma. MATERNAL ADNEXA: The right maternal ovary measures 2.7 x 1.5 x 1.5 cm. There is an anechoic cyst measuring 0.9 x 2.2 x 0.8 cm. There is a small right paraovarian cyst medial to the ovary. The left maternal ovary measures 3.2 x 1.8 x 2.8 cm. There is an anechoic cyst measuring 1.9 x 1.7 x 1.8 cm. There is a left adnexal cyst seen measuring 1.5 x 1.8 x 1.7 cm. There is no significant maternal adnexal mass. No maternal pelvic ascites. US/US OB pelvic and transvaginal IMPRESSION: 1. There is an intrauterine gestational sac seen but no pole or yolk sac seen. No heartbeat seen either. 2. There is a right paraovarian cyst, new. There is a left adnexal cyst measuring 1.5 x 1.8 x 1.7 cm.
[2022-11-05 13:59] LABS: HCG Quantitative 5903 mIU/mL
== END 2022-11-05 12:09 | disposition home or self-care (01) ==
LOC: HO.US 12:08
PROVIDERS: PCP Physician Assistant; Visit Provider Obstetrics & Gynecology
DX: Z34.90 Encounter for supervision of normal pregnancy, unspecified, unspecified trimester (principal)
CPT/HCPCS: 36415; 76801; 76817; 84702

== ENCOUNTER → 2022-11-06 10:11 | Outpatient (BNVA) | payer OTHER, SELFPAY | PROVIDERS: PCP Physician Assistant; Visit Provider Obstetrics & Gynecology | DX: Z34.90 Encounter for supervision of normal pregnancy, unspecified, unspecified trimester (principal) | CPT/HCPCS: 99212 ==

== ENCOUNTER 2022-11-07 12:23 | Emergency (ER) | payer OTHER, SELFPAY ==
--- NOTE | ~2022-11-07 | US_ITS ---
EXAMINATION: ULTRASOUND PELVIC, COMPLETE CLINICAL INFORMATION: Vaginal bleeding. Pelvic pain. Beta-hCG 10,939 COMPARISON: Multiple prior studies. Most recent 11/05/2022 TECHNIQUE: Transvaginal: Used to better visualize pelvic structures Transabdominal: Not adequate for visualization Spectral Doppler and color Doppler exam was utilized. LMP: 09/28/2022 gestational age by LMP is 5 weeks 5 days. EVA 07/05/2023 FINDINGS: UTERUS: No intrauterine . The previously seen gestational sac noted on the exam of October 2022 not evident on today's study. Endometrial thickness 1.4 cm. No fluid in the endometrial cavity. There is no uterine mass. ADNEXA: Right adnexa: Ovarian vascularity:Doppler demonstrates both arterial and venous vascular flow in the right ovary. No evidence of ovarian torsion. Right Ovary: There is a right-sided paraovarian cyst measuring 1.6 x 1 x 0.9 cm. This measures 0.9 x 2.2 x 0.8 cm on pelvic ultrasound October 2022. The right ovary measures 2.1 x 1.1 x 1.9 cm. Left adnexa: At the left proximal adnexal area in the region of the uterine cornu there are 2 rounded regions with small central hypoechoic area. There is a 1.2 x 1.4 x 1.4 cm lesion and an adjacent 1 x 0.8 x 1.4 cm lesion. There is a third adnexal mass also with a hypoechoic central region measuring 2.1 x 1.6 x 1.7 cm. There is slight increased vascularity around this region. No yolk sac or pole though observed. This is in the region of an anechoic cyst in left adnexa on the prior ultrasound of October 2022 which previously measured 1.9 cm. Ovarian vascularity:Doppler demonstrates both arterial and venous vascular flow in the left ovary. No evidence of ovarian torsion. Left Ovary: Left ovary measures 3.6 x 3 x 2.8 cm. Within the left ovary there is an anechoic cyst measuring 2 x 1.7 x 2 cm. This is unchanged since prior study. Cul-de-sac: No Fluid US/US OB pelvic and transvaginal IMPRESSION: 1. No intrauterine gestational sac. 2. Hypoechoic lesion at the left adnexa concerning for ectopic though there is no yolk sac or pole. This critical result was discussed with Tresa Calvo NP on 11/07/2022, 9:30 PM and it was ascertained that the content and urgency of the report was understood at the time of direct communication.
[2022-11-07 12:57] VITALS: BP 111/40; PULSE 88; RESP 16; TEMP 37.3; O2SAT 100; BMI 48.3
--- NOTE | 2022-11-07 12:58 | ED.FEMALEGU ---
HPI - Female Genitourinary General Chief complaint: Vaginal Bleeding <PENG Wayne - Last Filed: 11/07/22 13:09> Stated complaint: Vag Bleed 5 Wks <PENG Wayne - Last Filed: 11/07/22 13:09> Time Seen by Provider: 11/07/22 16:58 <PENG Wayne - Last Filed: 11/07/22 13:09> History of Present Illness HPI Narrative: patient with history of ectopic in the past, followed by Dr. Michelle , has had multiple visits with ultrasound done just 2 days ago, patient complains that this morning she had a crampy sharp low abdominal pain that lasted for an hour but went away but then a 2 hours later the pain came back with spotting and some light bleeding, no clots or solid material, she has used 1 pad She denies any fever no burning with urination no vomiting, right now pain is present and it is mild to moderate and it is crampy <PENG Espino - Last Filed: 11/07/22 19:10> Related Data Home medications: Home Medications Medication Instructions Recorded Confirmed No Known Home Meds 10/28/22 10/28/22 <PENG Wayne - Last Filed: 11/07/22 13:09> Allergies/Adverse reactions: Allergies Allergy/AdvReac Type Severity Reaction Status Date / Time adhesive tape Allergy Intermediate BLISTERS/RA Verified 11/06/22 10:19 SH latex [LATEX] Allergy Intermediate BLISTERS/RA Verified 11/06/22 10:19 SH <PENG Wayne - Last Filed: 11/07/22 13:09> [facility] Past Medical History Attestation statement: The following information was validated with the patient. <PENG Espino - Last Filed: 11/07/22 19:10> [facility] Narrative: history of prior ectopic <PENG Espino - Last Filed: 11/07/22 19:10> Medical History: Medical History Anemia History of cholestasis during Migraine Obesity Panic attack Papanicolaou smear for cervical cancer screening Renal calculi Umbilical hernia Vitamin D deficiency <PENG Wayne - Last Filed: 11/07/22 13:09> Surgical History: Surgical History Hx of bilateral breast reduction surgery Hx of tubal ligation <PENG Wayne - Last Filed: 11/07/22 13:09> Family History Family History: Family History Father Heart attack CVD (cardiovascular disease) Mother Depression HTN (hypertension) Migraine Anxiety Maternal Grandmother HTN (hypertension) Breast cancer Uterine cancer Brother ADHD Sister Depression Maternal Aunt Breast cancer Paternal Grandmother Diabetes mellitus Paternal Grandfather IDDM (insulin dependent diabetes mellitus) Family/Other Cervical cancer Daughter Mental health disorder Son Mental health disorder <PENG Wayne - Last Filed: 11/07/22 13:09> Social History Social History: Social History Housing: Apartment Alcohol intake: never Patient Tobacco Use Status: Never used Tobacco e-Cigarette/Vaping Use: Never Used Second Hand Smoke Exposure: No Advance Directives: No Advance Directives Information Provided: Yes service: No Current occupational status: unemployed Gender identity: Female <PENG Wayne - Last Filed: 11/07/22 13:09> Physical Exam Vital Signs: Vital Signs: Last Vital Signs Temp 98.1 F 11/07/22 22:23 Pulse 76 11/07/22 22:23 Resp 16 11/07/22 22:23 BP 100/53 L 11/07/22 22:23 Pulse Ox 100 11/07/22 22:23 O2 Del Method 11/07/22 22:23 BMI result Body Mass Index 48.3 <PENG Wayne - Last Filed: 11/07/22 13:09> Vital Signs: Last Vital Signs Temp 98.1 F 11/07/22 22:23 Pulse 76 11/07/22 22:23 Resp 16 11/07/22 22:23 BP 100/53 L 11/07/22 22:23 Pulse Ox 100 11/07/22 22:23 O2 Del Method 11/07/22 22:23 BMI result Body Mass Index 48.3 <PENG Espino - Last Filed: 11/07/22 19:10> Vital Signs: Last Vital Signs Temp 98.1 F 11/07/22 22:23 Pulse 76 11/07/22 22:23 Resp 16 11/07/22 22:23 BP 100/53 L 11/07/22 22:23 Pulse Ox 100 11/07/22 22:23 O2 Del Method 11/07/22 22:23 BMI result Body Mass Index 48.3 <PENG Valdovinos - Last Filed: 11/07/22 23:55> general appearance is no acute distress Eyes are anicteric no pallor Pharynx mucous membranes moist Neck is supple Chest is clear to auscultation bilateral Heart no murmur The abdomen is soft nontender no rebound no guarding The back no CVA tenderness Extremities full range of motion x4 Skin no rashes <PENG Espino - Last Filed: 11/07/22 19:10> Course Course Course Narrative: RME-12:53PM 32yoF [id number] who is currently 5 weeks confirmed by Blood serum and an ultrasound although on ultrasound unable to see any products of conception who is being followed by Dr. Michelle who is presenting to the ER with complaints of suprapubic abdominal pain with associated vaginal bleeding that started few hours prior to arrival. She reports she called Dr. Michelle's office and they told her to come to the emergency department for further evaluation treatment. She denies any other symptoms related to this. Plan: labs including ABO Rh type. I tried to order an ultrasound for the patient although the diesel technician reported that she had an ultrasound done 2 days ago on 11/05/2022 and also on 10/31/2022. They reported it is too sure of an interval to see a pole. She is scheduled for another ultrasound on 11/21/2022. Therefore ultrasound was canceled on my side. Patient will be sent to the waiting room to be evaluated in the ED. <PENG Wayne - Last Filed: 11/07/22 13:09> RME-12:53PM 32yoF [id number] who is currently 5 weeks confirmed by Blood serum and an ultrasound although on ultrasound unable to see any products of conception who is being followed by Dr. Michelle who is presenting to the ER with complaints of suprapubic abdominal pain with associated vaginal bleeding that started few hours prior to arrival. She reports she called Dr. Michelle's office and they told her to come to the emergency department for further evaluation treatment. She denies any other symptoms related to this. Plan: labs including ABO Rh type. I tried to order an ultrasound for the patient although the diesel technician reported that she had an ultrasound done 2 days ago on 11/05/2022 and also on 10/31/2022. They reported it is too sure of an interval to see a pole. She is scheduled for another ultrasound on 11/21/2022. Therefore ultrasound was canceled on my side. Patient will be sent to the waiting room to be evaluated in the ED. Patient with history of ectopic who presents today with bleeding and pelvic pain, is followed by Dr. Michelle and was seen most recently 2 days ago Bleeding so far is light and hemoglobin and hematocrit are stable, hemoglobin 12.3, hematocrit 38.1 She is O-positive blood so does not need RhoGAM Beta hCG today is 10,939, 2 days ago it was 5903 Bilirubin AST and ALT were mildly elevated Given the history and the new symptoms of bleeding and pelvic pain and ultrasound is ordered to rule out ectopic or spontaneous At 19:00 case is signed out peng negrete to to follow ultrasound re-evaluate and dispo patient <PENG Espino - Last Filed: 11/07/22 19:10> Reevaluation(s) Reevaluation #1: Went to evaluate patient however patient left to go home at around 2044 I received a call for critical results. <PENG Valdovinos - Last Filed: 11/07/22 23:55> Reevaluation #2: This case was discussed in depth with Dr. Michelle who explains to me there is concerns for an interstitial ectopic due to the rising hCG levels, mild adnexal tenderness and ultrasound findings. HCG level of greater than 11,000 are shown to have increased risk for methotrexate failure therefore this patient will likely be a surgical candidate, this surgery cannot be done at our facility as we do not have an OBGYN service for admission and for follow-up. He recommends reaching out to [facility] to see if they are able to take this patient. Will reach out to [facility] at this time <PENG Valdovinos Last Filed: 11/07/22 23:55> Time: 23:28 <PENG Valdovinos - Last Filed: 11/07/22 23:55> Reevaluation #3: Accepted to [facility] Dr.March Carvajal requesting imaging on disc. Patient agreeable to transfers. <PENG Valdovinos - Last Filed: 11/07/22 23:55> Time: 23:51 <PENG Valdovinos - Last Filed: 11/07/22 23:55> Medical Decision Making Lab Data Result Diagrams: 11/07/22 13:53 11/07/22 13:53 <PENG Wayne - Last Filed: 11/07/22 13:09> Labs: Lab Results 11/07/22 11/07/22 11/07/22 Range/Units 13:53 13:53 13:53 WBC 9.9 (4.8-10.8) X10*3/uL RBC 4.70 (4.20-5.50) X10*6/uL Hgb 12.3 (12.0-16.0) g/dl Hct 38.1 (37.0-47.0) % MCV 81.1 (80.0-98.0) fL MCH 26.2 L (27.0-33.0) pg MCHC 32.3 (31.0-35.0) g/dl RDW 14.2 (11.0-16.0) % Plt Count 282 (160-400) X10*3/uL MPV 10.6 (9.4-12.3) fL Immature Gran % (Auto) 0.2 (0.0-0.4) % Neut % (Auto) 70.7 (45-73) % Lymph % (Auto) 22.5 (20-40) % Butts % (Auto) 5.3 (2-11) % Eos % (Auto) 0.9 (0-4) % Baso % (Auto) 0.4 (0-2) % Lymph # (Auto) 2.2 (1.2-4.9) X10*3/uL Butts # (Auto) 0.5 (0.1-1.2) X10*3/uL Eos # (Auto) 0.1 (0.0-0.4) X10*3/uL Baso # (Auto) 0.0 (0.0-0.2) X10*3/uL Abs Immat Gran (auto) 0.02 (0.00-0.03) X10*3/uL Absolute Neuts (auto) 7.0 (2.0-8.3) x10*3/uL Absolute Nucleated RBC 0.000 (0.0-0.012) X10*3/uL Nucleated RBC % (auto) 0.0 (0.0-0.2) /100WBC PT 11.2 (10.0-13.1) SEC INR 1.0 (0.9-1.1) Sodium 138 (135-145) mmol/L Potassium 4.0 (3.3-5.1) mmol/L Chloride 106 (96-108) mmol/L Carbon Dioxide 23 (22-29) mmol/L Anion Gap 13 (12-20) BUN 7 L (9-16) mg/dL Creatinine 0.72 (0.5-1.4) mg/dL Estim Creat Clear Calc 133.0 Estimated GFR > 60 Random Glucose 84 (60-115) mg/dL Calcium 9.1 (8.4-10.2) mg/dL Magnesium 1.8 (1.6-2.6) mg/dL Total Bilirubin 1.6 H (0.0-1.0) mg/dL AST 33 H (5-31) U/L ALT 56 H (0-31) U/L Alkaline Phosphatase 82 (39-117) U/L Total Protein 7.5 (6.5-8.0) g/dL Albumin 4.1 (3.5-5.0) g/dL Beta HCG, Quant 95915 mIU/mL Blood Type 11/07/22 11/07/22 Range/Units 13:53 22:37 WBC (4.8-10.8) X10*3/uL RBC (4.20-5.50) X10*6/uL Hgb (12.0-16.0) g/dl Hct (37.0-47.0) % MCV (80.0-98.0) fL MCH (27.0-33.0) pg MCHC (31.0-35.0) g/dl RDW (11.0-16.0) % Plt Count (160-400) X10*3/uL MPV (9.4-12.3) fL Immature Gran % (Auto) (0.0-0.4) % Neut % (Auto) (45-73) % Lymph % (Auto) (20-40) % Butts % (Auto) (2-11) % Eos % (Auto) (0-4) % Baso % (Auto) (0-2) % Lymph # (Auto) (1.2-4.9) X10*3/uL Butts # (Auto) (0.1-1.2) X10*3/uL Eos # (Auto) (0.0-0.4) X10*3/uL Baso # (Auto) (0.0-0.2) X10*3/uL Abs Immat Gran (auto) (0.00-0.03) X10*3/uL Absolute Neuts (auto) (2.0-8.3) x10*3/uL Absolute Nucleated RBC (0.0-0.012) X10*3/uL Nucleated RBC % (auto) (0.0-0.2) /100WBC PT (10.0-13.1) SEC INR (0.9-1.1) Sodium (135-145) mmol/L Potassium (3.3-5.1) mmol/L Chloride (96-108) mmol/L Carbon Dioxide (22-29) mmol/L Anion Gap (12-20) BUN (9-16) mg/dL Creatinine (0.5-1.4) mg/dL Estim Creat Clear Calc Estimated GFR Random Glucose (60-115) mg/dL Calcium (8.4-10.2) mg/dL Magnesium (1.6-2.6) mg/dL Total Bilirubin (0.0-1.0) mg/dL AST (5-31) U/L ALT (0-31) U/L Alkaline Phosphatase (39-117) U/L Total Protein (6.5-8.0) g/dL Albumin (3.5-5.0) g/dL Beta HCG, Quant 63581 mIU/mL Blood Type O Positive <PENG Wayne - Last Filed: 11/07/22 13:09> Lab Results 11/07/22 11/07/22 11/07/22 Range/Units 13:53 13:53 13:53 WBC 9.9 (4.8-10.8) X10*3/uL RBC 4.70 (4.20-5.50) X10*6/uL Hgb 12.3 (12.0-16.0) g/dl Hct 38.1 (37.0-47.0) % MCV 81.1 (80.0-98.0) fL MCH 26.2 L (27.0-33.0) pg MCHC 32.3 (31.0-35.0) g/dl RDW 14.2 (11.0-16.0) % Plt Count 282 (160-400) X10*3/uL MPV 10.6 (9.4-12.3) fL Immature Gran % (Auto) 0.2 (0.0-0.4) % Neut % (Auto) 70.7 (45-73) % Lymph % (Auto) 22.5 (20-40) % Butts % (Auto) 5.3 (2-11) % Eos % (Auto) 0.9 (0-4) % Baso % (Auto) 0.4 (0-2) % Lymph # (Auto) 2.2 (1.2-4.9) X10*3/uL Butts # (Auto) 0.5 (0.1-1.2) X10*3/uL Eos # (Auto) 0.1 (0.0-0.4) X10*3/uL Baso # (Auto) 0.0 (0.0-0.2) X10*3/uL Abs Immat Gran (auto) 0.02 (0.00-0.03) X10*3/uL Absolute Neuts (auto) 7.0 (2.0-8.3) x10*3/uL Absolute Nucleated RBC 0.000 (0.0-0.012) X10*3/uL Nucleated RBC % (auto) 0.0 (0.0-0.2) /100WBC PT 11.2 (10.0-13.1) SEC INR 1.0 (0.9-1.1) Sodium 138 (135-145) mmol/L Potassium 4.0 (3.3-5.1) mmol/L Chloride 106 (96-108) mmol/L Carbon Dioxide 23 (22-29) mmol/L Anion Gap 13 (12-20) BUN 7 L (9-16) mg/dL Creatinine 0.72 (0.5-1.4) mg/dL Estim Creat Clear Calc 133.0 Estimated GFR > 60 Random Glucose 84 (60-115) mg/dL Calcium 9.1 (8.4-10.2) mg/dL Magnesium 1.8 (1.6-2.6) mg/dL Total Bilirubin 1.6 H (0.0-1.0) mg/dL AST 33 H (5-31) U/L ALT 56 H (0-31) U/L Alkaline Phosphatase 82 (39-117) U/L Total Protein 7.5 (6.5-8.0) g/dL Albumin 4.1 (3.5-5.0) g/dL Beta HCG, Quant 53086 mIU/mL Blood Type 11/07/22 11/07/22 Range/Units 13:53 22:37 WBC (4.8-10.8) X10*3/uL RBC (4.20-5.50) X10*6/uL Hgb (12.0-16.0) g/dl Hct (37.0-47.0) % MCV (80.0-98.0) fL MCH (27.0-33.0) pg MCHC (31.0-35.0) g/dl RDW (11.0-16.0) % Plt Count (160-400) X10*3/uL MPV (9.4-12.3) fL Immature Gran % (Auto) (0.0-0.4) % Neut % (Auto) (45-73) % Lymph % (Auto) (20-40) % Butts % (Auto) (2-11) % Eos % (Auto) (0-4) % Baso % (Auto) (0-2) % Lymph # (Auto) (1.2-4.9) X10*3/uL Butts # (Auto) (0.1-1.2) X10*3/uL Eos # (Auto) (0.0-0.4) X10*3/uL Baso # (Auto) (0.0-0.2) X10*3/uL Abs Immat Gran (auto) (0.00-0.03) X10*3/uL Absolute Neuts (auto) (2.0-8.3) x10*3/uL Absolute Nucleated RBC (0.0-0.012) X10*3/uL Nucleated RBC % (auto) (0.0-0.2) /100WBC PT (10.0-13.1) SEC INR (0.9-1.1) Sodium (135-145) mmol/L Potassium (3.3-5.1) mmol/L Chloride (96-108) mmol/L Carbon Dioxide (22-29) mmol/L Anion Gap (12-20) BUN (9-16) mg/dL Creatinine (0.5-1.4) mg/dL Estim Creat Clear Calc Estimated GFR Random Glucose (60-115) mg/dL Calcium (8.4-10.2) mg/dL Magnesium (1.6-2.6) mg/dL Total Bilirubin (0.0-1.0) mg/dL AST (5-31) U/L ALT (0-31) U/L Alkaline Phosphatase (39-117) U/L Total Protein (6.5-8.0) g/dL Albumin (3.5-5.0) g/dL Beta HCG, Quant 71712 mIU/mL Blood Type O Positive <PENG Espino - Last Filed: 11/07/22 19:10> Lab Results 11/07/22 11/07/22 11/07/22 Range/Units 13:53 13:53 13:53 WBC 9.9 (4.8-10.8) X10*3/uL RBC 4.70 (4.20-5.50) X10*6/uL Hgb 12.3 (12.0-16.0) g/dl Hct 38.1 (37.0-47.0) % MCV 81.1 (80.0-98.0) fL MCH 26.2 L (27.0-33.0) pg MCHC 32.3 (31.0-35.0) g/dl RDW 14.2 (11.0-16.0) % Plt Count 282 (160-400) X10*3/uL MPV 10.6 (9.4-12.3) fL Immature Gran % (Auto) 0.2 (0.0-0.4) % Neut % (Auto) 70.7 (45-73) % Lymph % (Auto) 22.5 (20-40) % Butts % (Auto) 5.3 (2-11) % Eos % (Auto) 0.9 (0-4) % Baso % (Auto) 0.4 (0-2) % Lymph # (Auto) 2.2 (1.2-4.9) X10*3/uL Butts # (Auto) 0.5 (0.1-1.2) X10*3/uL Eos # (Auto) 0.1 (0.0-0.4) X10*3/uL Baso # (Auto) 0.0 (0.0-0.2) X10*3/uL Abs Immat Gran (auto) 0.02 (0.00-0.03) X10*3/uL Absolute Neuts (auto) 7.0 (2.0-8.3) x10*3/uL Absolute Nucleated RBC 0.000 (0.0-0.012) X10*3/uL Nucleated RBC % (auto) 0.0 (0.0-0.2) /100WBC PT 11.2 (10.0-13.1) SEC INR 1.0 (0.9-1.1) Sodium 138 (135-145) mmol/L Potassium 4.0 (3.3-5.1) mmol/L Chloride 106 (96-108) mmol/L Carbon Dioxide 23 (22-29) mmol/L Anion Gap 13 (12-20) BUN 7 L (9-16) mg/dL Creatinine 0.72 (0.5-1.4) mg/dL Estim Creat Clear Calc 133.0 Estimated GFR > 60 Random Glucose 84 (60-115) mg/dL Calcium 9.1 (8.4-10.2) mg/dL Magnesium 1.8 (1.6-2.6) mg/dL Total Bilirubin 1.6 H (0.0-1.0) mg/dL AST 33 H (5-31) U/L ALT 56 H (0-31) U/L Alkaline Phosphatase 82 (39-117) U/L Total Protein 7.5 (6.5-8.0) g/dL Albumin 4.1 (3.5-5.0) g/dL Beta HCG, Quant 46427 mIU/mL Blood Type 11/07/22 11/07/22 Range/Units 13:53 22:37 WBC (4.8-10.8) X10*3/uL RBC (4.20-5.50) X10*6/uL Hgb (12.0-16.0) g/dl Hct (37.0-47.0) % MCV (80.0-98.0) fL MCH (27.0-33.0) pg MCHC (31.0-35.0) g/dl RDW (11.0-16.0) % Plt Count (160-400) X10*3/uL MPV (9.4-12.3) fL Immature Gran % (Auto) (0.0-0.4) % Neut % (Auto) (45-73) % Lymph % (Auto) (20-40) % Butts % (Auto) (2-11) % Eos % (Auto) (0-4) % Baso % (Auto) (0-2) % Lymph # (Auto) (1.2-4.9) X10*3/uL Butts # (Auto) (0.1-1.2) X10*3/uL Eos # (Auto) (0.0-0.4) X10*3/uL Baso # (Auto) (0.0-0.2) X10*3/uL Abs Immat Gran (auto) (0.00-0.03) X10*3/uL Absolute Neuts (auto) (2.0-8.3) x10*3/uL Absolute Nucleated RBC (0.0-0.012) X10*3/uL Nucleated RBC % (auto) (0.0-0.2) /100WBC PT (10.0-13.1) SEC INR (0.9-1.1) Sodium (135-145) mmol/L Potassium (3.3-5.1) mmol/L Chloride (96-108) mmol/L Carbon Dioxide (22-29) mmol/L Anion Gap (12-20) BUN (9-16) mg/dL Creatinine (0.5-1.4) mg/dL Estim Creat Clear Calc Estimated GFR Random Glucose (60-115) mg/dL Calcium (8.4-10.2) mg/dL Magnesium (1.6-2.6) mg/dL Total Bilirubin (0.0-1.0) mg/dL AST (5-31) U/L ALT (0-31) U/L Alkaline Phosphatase (39-117) U/L Total Protein (6.5-8.0) g/dL Albumin (3.5-5.0) g/dL Beta HCG, Quant 65400 mIU/mL Blood Type O Positive <PENG Valdovinos - Last Filed: 11/07/22 23:55> Critical Care Time Critical Care Time Critical Care Time: Yes <PENG Valdovinos - Last Filed: 11/07/22 23:55> Total Critical Care Time: 35 <PENG Valdovinos Last Filed: 11/07/22 23:55> Attestation: I attest to this time spent taking care of the patient, obtaining history, physical, reviewing labs, imaging, speaking to my attending, speaking to specialist. <PENG Valdovinos - Last Filed: 11/07/22 23:55> Discharge Plan Discharge Clinical Impression: Vaginal bleeding, Pelvic pain, Ectopic <PENG Wayne - Last Filed: 11/07/22 13:09> Patient Disposition: [facility] <PENG Wayne Last Filed: 11/07/22 13:09> Transfer Details: Flo Carvajal <PENG Wayne Last Filed: 11/07/22 13:09> Flo Carvajal <PENG Espino - Last Filed: 11/07/22 19:10> Flo Carvajal <PENG Valdovinos Last Filed: 11/07/22 23:55> Prescriptions: No Action No Known Home Meds <PENG Wayne Last Filed: 11/07/22 13:09>
[2022-11-07 13:59] LABS: MANUAL DIFF FLAG NO
[2022-11-07 14:00] VITALS: BP 96/43; PULSE 77; RESP 16; O2SAT 100
[2022-11-07 14:04] LABS: Basophils Percent Auto 0.4 % (0-2); Eosinophils Absolute Auto 0.1 X10*3/uL (0.0-0.4); Eosinophils Percent Auto 0.9 % (0-4); Hematocrit 38.1 % (37.0-47.0); Hemoglobin 12.3 g/dl (12.0-16.0); Imm Gran Abs Auto 0.02 X10*3/uL (0.00-0.03); Imm Gran Pct Auto 0.2 % (0.0-0.4); Lymphocytes Absolute Auto 2.2 X10*3/uL (1.2-4.9); Lymphocytes Percent Auto 22.5 % (20-40); Mean Corpuscular HGB Conc 32.3 g/dl (31.0-35.0); Mean Corpuscular Hemoglobin 26.2 pg (27.0-33.0); Mean Corpuscular Volume 81.1 fL (80.0-98.0); Mean Platelet Volume 10.6 fL (9.4-12.3); Monocytes Absolute Auto 0.5 X10*3/uL (0.1-1.2); Monocytes Percent Auto 5.3 % (2-11); Neutrophils Percent Auto 70.7 % (45-73); Platelet Count 282 X10*3/uL (160-400); Red Cell Distribution Width 14.2 % (11.0-16.0); White Blood Count 9.9 X10*3/uL (4.8-10.8)
[2022-11-07 14:08] LABS: Prothrombin Time 11.2 SEC (10.0-13.1)
[2022-11-07 14:24] LABS: HCG Quantitative 10939 mIU/mL
[2022-11-07 14:30] LABS: Alanine Aminotransferase 56 U/L (0-31); Albumin Level 4.1 g/dL (3.5-5.0); Alkaline Phosphatase 82 U/L (39-117); Anion Gap 13 (12-20); Aspartate Amino Transferase 33 U/L (5-31); Bilirubin Total 1.6 mg/dL (0.0-1.0); Blood Urea Nitrogen 7 mg/dL (9-16); Calcium 9.1 mg/dL (8.4-10.2); Carbon Dioxide 23 mmol/L (22-29); Chloride 106 mmol/L (96-108); Estimated Glomerular Filt Rate > 60; Glucose Random 84 mg/dL (60-115); Magnesium 1.8 mg/dL (1.6-2.6); Sodium 138 mmol/L (135-145); Total Protein 7.5 g/dL (6.5-8.0)
[2022-11-07 22:23] VITALS: BP 100/53; PULSE 76; RESP 16; TEMP 36.7; O2SAT 100
[2022-11-07 23:10] LABS: HCG Quantitative 11258 mIU/mL
--- NOTE | 2022-11-07 23:31 | MHC.EDTECH ---
call out to [facility] transfer center @[phone] regarding transport of patient. waiting weatherization operations manager back from [facility]
[2022-11-07] MEDS: 0.9 % Sodium Chloride 1,000 ML 999 ML IV (23:47)
--- NOTE | 2022-11-07 23:48 | PM.GYNCN ---
INVESTIGATIONS CHIEF - CN: HPI Data of Consult Consult date: 11/07/22 Primary Care Provider: Abilio August PA-C Consult Narrative Narrative: I was consulted on Clari Fletcher who is a 32 year old with history of ectopic last year, , presented to the emergency with crampy sharp low abdominal pain that lasted for an hour that resolved then recurred 2 hours later, the pain is associated with vaginal spotting , no nausea or vomiting The patient has been followed up since early because of her history of ectopic . On 10/28 hCG was 662 On 10/30 hCG was 1363 On 10/31 hCG 1656, ultrasound showed no IUP with no adnexal masses On 11/05 hCG went up to 5903, ultrasound showed intrauterine gestational sac with no pole or yolk sac and a right para ovarian cyst measuring 1.8 x 1.7 cm Today the patient came in to the emergency room around noon hCG was done at 13:53 went up to 10,939, Pelvic ultrasound was done showed the following: UTERUS: No intrauterine . The previously seen gestational sac noted on the exam of October 2022 not evident on today's study. Endometrial thickness 1.4 cm. No fluid in the endometrial cavity. There is no uterine mass. ADNEXA: Right adnexa: Ovarian vascularity:Doppler demonstrates both arterial and venous vascular flow in the right ovary. No evidence of ovarian torsion. Right Ovary: There is a right-sided paraovarian cyst measuring 1.6 x 1 x 0.9 cm. This measures 0.9 x 2.2 x 0.8 cm on pelvic ultrasound October 2022. The right ovary measures 2.1 x 1.1 x 1.9 cm. Left adnexa: At the left proximal adnexal area in the region of the uterine cornu there are 2 rounded regions with small central hypoechoic area. There is a 1.2 x 1.4 x 1.4 cm lesion and an adjacent 1 x 0.8 x 1.4 cm lesion. ? There is a third adnexal mass also with a hypoechoic central region measuring 2.1 x 1.6 x 1.7 cm. There is slight increased vascularity around this region. No yolk sac or pole though observed. This is in the region of an anechoic cyst in left adnexa on the prior ultrasound of October 2022 which previously measured 1.9 cm. Ovarian vascularity:Doppler demonstrates both arterial and venous vascular flow in the left ovary. No evidence of ovarian torsion. Left Ovary: Left ovary measures 3.6 x 3 x 2.8 cm.? Within the left ovary there is an anechoic cyst measuring 2 x 1.7 x 2 cm. This is unchanged since prior study. Cul-de-sac: No Fluid The patient went home because of the prolonged wait in the emergency room and the patient was called back hCG was repeated was 11,258 at 22:37 cc:: CC: AREA ATTENDANT - Review of Systems Review of Systems ROS Unobtainable: All systems reviewed & are unremarkable except as noted in HPI and below Cardiovascular: Denies Palpatations, Loss of consciousness or Chest pain Respiratory: Denies Cough, Wheezing or Shortness of breath Musculoskeletal: Denies Low back pain Gastrointestinal: Denies Heartburn, Constipation, Diarrhea, Nausea or Vomiting Genitourinary: Denies Pain with urination, Burning with urination or Urinary frequency Neurological: Denies Migranes Psychological: Denies Depression OB PMFSH Past Medical History Medical History Anemia History of cholestasis during Migraine Obesity Panic attack Papanicolaou smear for cervical cancer screening Renal calculi Umbilical hernia Vitamin D deficiency Family History Family History Father Heart attack CVD (cardiovascular disease) Mother Depression HTN (hypertension) Migraine Anxiety Maternal Grandmother HTN (hypertension) Breast cancer Uterine cancer Brother ADHD Sister Depression Maternal Aunt Breast cancer Paternal Grandmother Diabetes mellitus Paternal Grandfather IDDM (insulin dependent diabetes mellitus) Family/Other Cervical cancer Daughter Mental health disorder Son Mental health disorder Surgical History Surgical History Hx of bilateral breast reduction surgery Hx of tubal ligation Social History Social History Housing: Apartment Alcohol intake: never Patient Tobacco Use Status: Never used Tobacco e-Cigarette/Vaping Use: Never Used Second Hand Smoke Exposure: No Advance Directives: No Advance Directives Information Provided: Yes service: No Current occupational status: unemployed Gender identity: Female Meds Allergies Allergy/AdvReac Type Severity Reaction Status Date / Time adhesive tape Allergy Intermediate BLISTERS/RA Verified 02/09/23 10:19 latex [LATEX] Allergy Intermediate BLISTERS/RA Verified 11/06/22 10:19 Active Medications: Current Medications Sodium Chloride (Ns) 1,000 mls @ 999 mls/hr IV .Q1H1M CARLA Stop: 11/08/22 00:45 Last Admin: 11/07/22 23:47 Dose: 999 mls/hr Home Medications Medication Instructions Recorded Confirmed Last Taken Type No Known Home Meds 10/28/22 10/28/22 Unknown History INVESTIGATIONS CHIEF Physical Exam Vitals Vital signs: Temp Pulse Resp BP Pulse Ox O2 Del Method 98.1 F 76 16 100/53 L 100 11/07/22 22:23 11/07/22 22:23 11/07/22 22:23 11/07/22 22:23 11/07/22 22:23 11/07/22 22:23 BMI result Body Mass Index 48.3 Constitutional General Appearance: Healthy appearing, Well-nourished and Well-developed Psychiatric Mood and Affect: active and alert, normal mood and normal affect Skin Appearance: No rashes and No lesions Lungs Respiratory Effort: No intercostal retractions Auscultation: Clear to auscultation Cardiovascular Auscultation: RRR Abdomen Auscultation/Inspection/Palpation: Normal bowel sounds, Soft, Non-distended and No tenderness Female Genitalia (Pelvic) Bladder/Urethra: Normal meatus Vulva: No lesions Vagina: Nontender Cervix: Grossly normal and No cervical motion tenderness Uterus: Normal size Adnexa/Parametria: Adnexal Tenderness: None and Adnexal Mass: None INVESTIGATIONS CHIEF - Results Labs 11/07/22 13:53 11/07/22 13:53 Labs: Short CBC 11/07/22 Range/Units 13:53 WBC 9.9 (4.8-10.8) X10*3/uL Hgb 12.3 (12.0-16.0) g/dl Hct 38.1 (37.0-47.0) % Plt Count 282 (160-400) X10*3/uL BMP 11/07/22 13:53 Sodium 138 Potassium 4.0 Chloride 106 Carbon Dioxide 23 BUN 7 L Creatinine 0.72 Calcium 9.1 Liver Function 11/07/22 Range/Units 13:53 Total Bilirubin 1.6 H (0.0-1.0) mg/dL AST 33 H (5-31) U/L ALT 56 H (0-31) U/L Alkaline Phosphatase 82 (39-117) U/L Albumin 4.1 (3.5-5.0) g/dL Imaging US - abdomen: Radiologist's impression: ITS Impressions Pelvic/Transvag US 11/07/22 18:46 IMPRESSION: 1. No intrauterine gestational sac. 2. Hypoechoic lesion at the left adnexa concerning for ectopic though there is no yolk sac or pole. This critical result was discussed with Tresa Calvo NP on 11/07/2022, 9:30 PM and it was ascertained that the content and urgency of the report was understood at the time of direct communication. Assessment and Plan (1) Ectopic : Status: Acute Plan Discussed with the patient the level of her hCG being 11,258 with no IUP , her clinical situation is pointing towards an ectopic suspicious for left interstitial location by ultrasound. In addition, explained to the patient that since hCG level is elevated, this is associated with a higher failure rate with methotrexate treatment although multidose regimen is associated with a higher success rate relative to a single dose regimen. The different options of treatment were discussed with the patient including medical versus surgical, all pros, cons , risks and benefits of each approach were discussed with the patient. Since the location of the ectopic is suspicious of interstitial with the elevated hCG and higher failure rate, the patient is a candidate for surgical treatment, therefore I recommended transfer to a tertiary care center where more resources are available, [facility], for further management. All questions answered, the patient verbalized understanding and agreed with the plan. Discussed the recommended plan of care with PENG Valdovinos Time Spent With Patient Time: Total time managing care of this patient today ____ minutes.
[2022-11-07 23:49] LABS: COVID-19 Test Negative (Negative); IDNOW Serial# 6674DD1D
[2022-11-08] MEDS: 0.9 % Sodium Chloride 1,000 ML 999 ML IV (00:15)
[2022-11-08 00:24] VITALS: BP 99/56; PULSE 65; RESP 16
[2022-11-08] MEDS: ondansetron HCL 4 MG/2 ML VIAL IVPUSH (00:43)
[2022-11-08 00:45] VITALS: BP 91/59; PULSE 64
[2022-11-08 11:10] LABS: CT PCR NOT DETECTED (Not Detect.); NG PCR NOT DETECTED (Not Detect.)
[2022-11-08 15:09] LABS: BV Int Neg Control Negative (Negative); BV Int Pos Control Positive (Positive)
== END 2022-11-08 01:02 | disposition short-term general hospital (02) ==
PROVIDERS: Physician Assistant; Physician Assistant Medical; Emergency Provider Emergency Medicine; PCP Physician Assistant
DX: O00.91 Unspecified ectopic pregnancy with intrauterine pregnancy (principal); R10.2 Pelvic and perineal pain; N93.8 Other specified abnormal uterine and vaginal bleeding; Z3A.01 Less than 8 weeks gestation of pregnancy; Z20.822 Contact with and (suspected) exposure to COVID-19; Z20.828 Contact with and (suspected) exposure to other viral communicable diseases; Z79.899 Other long term (current) drug therapy
CPT/HCPCS: 0353U; 36415; 76801; 76817; 80053; 83735; 84702; 85025; 85610; 86900; 86901; 87480; 87510; 87635; 87660; 96374; 99285; J2405

== ENCOUNTER → 2023-02-20 11:07 | Outpatient (BNVA) | payer OTHER, SELFPAY | PROVIDERS: PCP Physician Assistant; Visit Provider Obstetrics & Gynecology ==

== ENCOUNTER 2023-06-24 23:51 | Emergency (ER) | payer OTHER, SELFPAY ==
--- NOTE | 2023-06-24 | ECG_ITS ---
Test Reason : LEFT ARM PAIN Blood Pressure : / mmHG Vent. Rate : 069 BPM Atrial Rate : 069 BPM P-R Int : 154 ms QRS Dur : 088 ms QT Int : 376 ms P-R-T Axes : -23 026 027 degrees QTc Int : 402 ms Normal sinus rhythm Normal ECG When compared with ECG of 26-AUG-2020 10:05, No significant change was found Referred By: Generic ED Physician Electronically Signed By:MEDARDO DEY
[2023-06-24 23:55] VITALS: BP 113/49; PULSE 75; RESP 16; TEMP 36.6; O2SAT 98; BMI 46.3
[2023-06-25 00:28] LABS: Hematocrit 36.7 % (37.0-47.0); Hemoglobin 12.1 g/dl (12.0-16.0); Mean Corpuscular Hemoglobin 26.8 pg (27.0-33.0); Mean Corpuscular Volume 81.2 fL (80.0-98.0); Mean Platelet Volume 10.7 fL (9.4-12.3); Platelet Count 281 X10*3/uL (160-400); Red Blood Count 4.52 X10*6/uL (4.20-5.50); Red Cell Distribution Width 13.3 % (11.0-16.0); White Blood Count 8.7 X10*3/uL (4.8-10.8)
[2023-06-25 00:42] LABS: Alanine Aminotransferase 16 U/L (0-31); Albumin Level 3.8 g/dL (3.5-5.0); Alkaline Phosphatase 75 U/L (39-117); Anion Gap 12 (12-20); Aspartate Amino Transferase 20 U/L (5-31); Blood Urea Nitrogen 13 mg/dL (9-16); Calcium 9.1 mg/dL (8.4-10.2); Carbon Dioxide 25 mmol/L (22-29); Chloride 106 mmol/L (96-108); Creatinine Clr Calc Pharmacy 102.6; Estimated Glomerular Filt Rate > 60; Glucose Random 95 mg/dL (60-115); Potassium 3.9 mmol/L (3.3-5.1); Sodium 139 mmol/L (135-145); Total Protein 7.3 g/dL (6.5-8.0)
[2023-06-25 00:52] LABS: Troponin-I High Sensitivity < 2.7 ng/L (<3.5-17.0)
--- NOTE | 2023-06-25 00:59 | ED_ITS ---
HPI - General Adult General Chief complaint: General Medical Stated complaint: left arm pain Time Seen by Provider: 06/25/23 00:58 Source: patient Mode of arrival: ambulatory Limitations: no limitations History of Present Illness HPI narrative: 33-year-old female who presents emergency department for evaluation of left arm and neck pain x2 weeks. The patient does not recount any injuries but she states she has 3 kids that she is constantly taking care of in caring. Pain she states that the pain feels like a tearing sensation, it starts in her left neck and shoulder then travels down her left arm. She states she has a tingly sensation in her left hand but no weakness. She has been taking Tylenol and Motrin with no relief for pain. She states the pain is 9/10 at its worst patient states that she did have a bee sting to her left arm which initially became swollen but this is improved. The she denied fever but states that she occasionally feels chills. She has had nausea but no vomiting. She denied chest pain, shortness of breath, dyspnea on exertion. Related Data Previous Rx's Medication Instructions Recorded cyclobenzaprine 10 mg tablet 10 mg PO TID PRN pain, muscle 06/25/23 spasm #15 tabs oxycodone 5 mg tablet 5 mg PO Q6H PRN pain #10 tabs 06/25/23 prednisone 20 mg tablet 60 mg (3 x 20 mg) PO DAILY 5 days 06/25/23 #15 tabs Allergies Allergy/AdvReac Type Severity Reaction Status Date / Time adhesive tape Allergy Intermediate BLISTERS/RA Verified 02/20/23 11:50 latex [LATEX] Allergy Intermediate BLISTERS/RA Verified 02/20/23 11:50 Review of Systems 2 Review of Systems: Yes all other systems are reviewed and are negative [facility] Past Medical History [facility] Narrative: Social history: She denies tobacco, alcohol and drug use Medical History Papanicolaou smear for cervical cancer screening History of cholestasis during Umbilical hernia Vitamin D deficiency Anemia Obesity Renal calculi Migraine Panic attack Surgical History History of right salpingo-oophorectomy Hx of tubal ligation Hx of bilateral breast reduction surgery Family History Family History Father Heart attack CVD (cardiovascular disease) Mother Depression HTN (hypertension) Migraine Anxiety Maternal Grandmother HTN (hypertension) Breast cancer Uterine cancer Brother ADHD Sister Depression Maternal Aunt Breast cancer Paternal Grandmother Diabetes mellitus Paternal Grandfather IDDM (insulin dependent diabetes mellitus) Family/Other Cervical cancer Daughter Mental health disorder Son Mental health disorder Social History Social History Housing: Apartment Alcohol intake: never Patient Tobacco Use Status: Never used Tobacco Smoked in Last 30 Days: No e-Cigarette/Vaping Use: Never Used Second Hand Smoke Exposure: No Use of substances other than those prescribed or required for medical reasons: No Advance Directives: No Advance Directives Information Provided: Yes Patient : No service: No Current occupational status: unemployed Gender identity: Female Physical Exam ED Vital Signs: Vital Signs - 24 hr 06/24/23 23:55 Temperature 98 F Pulse Rate 75 Respiratory Rate 16 Blood Pressure 113/49 L Pulse Oximetry 98 Oxygen Delivery Method Room Air BMI result Body Mass Index 46.3 Vital signs were normal Exam: General: Awake, alert in no distress elevated BMI 46.3 Head: Normocephalic, atraumatic EENT: PERRL, Lids normal, sclera normal, conjunctiva normal, nose normal , ears normal, throat without erythema or exudates Neck: Supple, no adenopathy, trachea midline and tender left trapezius muscle Lung: breath sounds symmetric, no wheezing, rales or rhonchi Chest: symmetric movement, nontender Heart: regular rate and rhythm, normal S1, S2 no murmurs or rubs Abdomen: soft, non-tender, nondistended, normal bowel sounds Back: no vertebral tenderness, no CVAT Extremities: no deformities, moves all extremities symmetrically. No erythema or increased warmth noted. Patient has full range of motion passively and actively of her wrist and elbow pain. She does have increased pain with active movement of her left shoulder. Neuro: Awake, alert, oriented, normal speech, cranial nerves intact, moves all extremities symmetrically Psych: Pleasant, cooperative Medical Decision Making Medical Decision Making MDM Narrative: 33-year-old female who presents emergency department for evaluation of left arm and neck pain x2 weeks. Patient does not recount any injury, she does have occasional chills and nausea with no chest pain or shortness of breath. Patient's exam did reveal tenderness palpation of her left trapezius muscle and increase pain with movement of her left shoulder. Following evaluation was ordered: CBC, CMP, troponin, EKG. 0140: Patient's laboratory evaluation was unremarkable with a normal CBC and CMP. Patient's troponin was below detectable limits. Twelve EKG was unremarkable pain Patient's findings are consistent with cervical radiculopathy and I did discuss this with her. Patient was started on prednisone 60 mg once a day for 5 days, Flexeril 10 mg 3 times a day as needed for pain and spasm, Tylenol 1000 mg every 6 hours as needed for pain and oxycodone 5 mg every 6 hours as needed for pain not relieved by prednisone and Tylenol. She was given printed and verbal instructions and discharged. Differential Diagnosis Differential Diagnoses: The differential diagnosis associated with the presentation includes Differential diagnosis includes was not limited to myocardial ischemia, myocardial infarction, cervical radiculopathy, infectious process Admission/Observation Consideration of admission/observation: Escalation of care including admission/observation considered Lab Data MDM Lab Attestation statement: I reviewed the patient's lab results. My independent interpretation patient's laboratory evaluation as follows: CBC was normal. CMP was normal. High sensitive troponin I was below detectable limits. 06/25/23 00:21 06/25/23 00:19 Labs: Lab Results 06/25/23 06/25/23 Range/Units 00:19 00:21 WBC 8.7 (4.8-10.8) X10*3/uL RBC 4.52 (4.20-5.50) X10*6/uL Hgb 12.1 (12.0-16.0) g/dl Hct 36.7 L (37.0-47.0) % MCV 81.2 (80.0-98.0) fL MCH 26.8 L (27.0-33.0) pg MCHC 33.0 (31.0-35.0) g/dl RDW 13.3 (11.0-16.0) % Plt Count 281 (160-400) X10*3/uL MPV 10.7 (9.4-12.3) fL Absolute Nucleated RBC 0.000 (0.0-0.012) X10*3/uL Nucleated RBC % (auto) 0.0 (0.0-0.2) /100WBC Sodium 139 (135-145) mmol/L Potassium 3.9 (3.3-5.1) mmol/L Chloride 106 (96-108) mmol/L Carbon Dioxide 25 (22-29) mmol/L Anion Gap 12 (12-20) BUN 13 (9-16) mg/dL Creatinine 0.90 (0.5-1.4) mg/dL Estim Creat Clear Calc 102.6 Estimated GFR > 60 Random Glucose 95 (60-115) mg/dL Calcium 9.1 (8.4-10.2) mg/dL Total Bilirubin 1.0 (0.0-1.0) mg/dL AST 20 (5-31) U/L ALT 16 (0-31) U/L Alkaline Phosphatase 75 (39-117) U/L Troponin I High Sens < 2.7 (<3.5-17.0) ng/L Total Protein 7.3 (6.5-8.0) g/dL Albumin 3.8 (3.5-5.0) g/dL Independent Interpretation I performed an independent interpretation of an: EKG Interpretation: My independent interpretation patient's 12 EKG done at 00:09 hours is as follows: Normal sinus rhythm with a rate of 69, normal AL interval, QRS duration QTC interval, no ST segment elevation, no ST segment depression, no significant T-wave abnormalities, no PACs, no PVCs this is a normal EKG. Prescription Management I considered prescription management with: Pain Medication and Other (Flexeril, prednisone, oxycodone) Chronic Conditions Patient?s care impacted by: Other (Obesity) Discharge Plan Discharge Clinical Impression: Cervical radiculopathy, Arm paresthesia, left Patient Disposition: Home, Self-Care Instructions: Cervical Radiculopathy (ED) Additional Instructions: Your blood work was normal pain Your EKG was unremarkable. Your symptoms are consistent with inflammation of the nerves coming out of your neck that go to your arm. This is called cervical radiculopathy. Take Flexeril (cyclobenzaprine) 10 mg pills, 1 pill every 6-8 hours as needed for pain or spasm. This medication will make you sleepy. Do not drive or work while taking this medication. Take prednisone 20 mg pills, 3 pills once a day for 5 days. While you are taking prednisone, do not take any NSAIDs (Motrin, Advil, ibuprofen, Aleve, naproxen). Take Tylenol (acetaminophen) 500 mg pills, 2 pills every 4-6 hours as needed for pain. For pain not relieved by prednisone or Tylenol take oxycodone 5 mg pills, 1 pill every 4 hours as needed for pain. Do not drive or work while taking this medication since they can cause sleepiness. Oxycodone is a narcotic medication that can be addicting. If you are concerned about addiction you can ask the pharmacist for less pills or do not get this prescription filled. Use an ice pack on the left side of your neck for 15 minute that weight an hour and apply a heating pad on low for 15 minutes, do this 4 to 6 times a day for the next 2-3 days. Follow-up with your doctor in 2 days. Please return to the emergency department if your symptoms get worse or if you develop any symptoms that are concerning to you. Prescriptions: New cyclobenzaprine 10 mg tablet 10 mg PO TID PRN (Reason: pain, muscle spasm) Qty: 15 0RF prednisone 20 mg tablet 60 mg PO DAILY 5 Days Qty: 15 0RF oxycodone 5 mg tablet 5 mg PO Q6H PRN (Reason: pain) Qty: 10 0RF Rx Instructions: Patient may request partial refill; Partial Fill upon patient request.
== END 2023-06-25 01:50 | disposition home or self-care (01) ==
PROVIDERS: Emergency Provider Emergency Medicine Emergency Medical Services
DX: M54.12 Radiculopathy, cervical region (principal); R20.2 Paresthesia of skin
CPT/HCPCS: 36415; 80053; 84484; 85027; 93005; 99283; 99284

== ENCOUNTER 2023-08-13 09:58 | Outpatient (AMB) | payer OTHER, SELFPAY ==
--- NOTE | 2023-08-13 10:48 | MHC.PC.OV ---
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 Required: No Accompanied by: Self / Same As Patient Is last menstrual period known: Yes Last menstrual period: 07/31/23 Allergies adhesive tape Allergy (Intermediate, Verified 08/13/23 11:10) BLISTERS/RASH latex [LATEX] Allergy (Intermediate, Verified 08/13/23 11:10) BLISTERS/RASH Medication List - Last Reconciled 08/13/23 by Abilio August PA-C No Known Home Meds Tobacco use date assessed: 08/13/23 Dental Screening Dental Screen Date: 08/13/23 Did you have a dental visit in the last 12 months?: Yes Did you have a dental problem in the last 6 months where you did not have access to dental care?: No Was dental information given to patient?: Patient has dentist HPI Physical HPI Details Patient is a 33-year-old female here today for routine annual physical. ? Patient has a past medical history significant for morbid obesity, GERD, elevated liver enzymes--> Cholestasis (during ) anemia. Concern--> reports over the last several months noting some hair thinning over her scalp. She attributes this to stress. .. Anemia:? Patient has history of anemia. Has not gotten labs in quite some time. She is willing to get fasting labs and re-evaluate her CBC. . Obesity: Unfortunately patient he has not lost weight since last visit. She does report not being able to be physically active due to her busy home life. She reports she is motivated to lose weight and is interested in weight management program. Elevated liver enzymes:? Has history of elevated liver enzymes during . Will recheck her liver profile to assure normal. .. GERD: Has resolved , is mostly diet controlled and does not take any antacids anymore. Vaccines: Up-to-date with tetanus, COVID, flu vaccines. 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 controller- [facility] Tests 06/25/23 00:21 RBC 4.52 Hgb 12.1 PFSH Medical History Papanicolaou smear for cervical cancer screening History of cholestasis during Umbilical hernia Vitamin D deficiency Anemia Obesity Renal calculi Migraine Panic attack Surgical History History of right salpingo-oophorectomy Hx of tubal ligation Hx of bilateral breast reduction surgery Family History Father Heart attack CVD (cardiovascular disease) Mother Depression HTN (hypertension) Migraine Anxiety Maternal Grandmother HTN (hypertension) Breast cancer Uterine cancer Brother ADHD Sister Depression Maternal Aunt Breast cancer Paternal Grandmother Diabetes mellitus Paternal Grandfather IDDM (insulin dependent diabetes mellitus) Family/Other Cervical cancer Daughter Mental health disorder Son Mental health disorder Social History Housing: Apartment Alcohol intake: never Patient Tobacco Use Status: Never used Tobacco e-Cigarette/Vaping Use: Never Used Second Hand Smoke Exposure: No service: No Current occupational status: unemployed Gender identity: Female Cognitive needs: No Hearing needs: No Vision needs: No Female Reproductive History Menstrual Age of Menarche: 9 Date of last menstrual period: 07/31/23 Questionnaire PHQ-9 Over the last 2 weeks, how often have you been bothered by any of the following problems? 1. Little interest or pleasure in doing things: not at all 2. Feeling down, depressed, or hopeless: not at all 3. Trouble falling or staying asleep, or sleeping too much: not at all 4. Feeling tired or having little energy: not at all 5. Poor appetite or overeating: not at all 6. Feeling bad about yourself - or that you are a failure or have let yourself or your family down: not at all 7. Trouble concentrating on things, such as reading the newspaper or watching television: not at all 8. Moving or speaking so slowly that other people could have noticed. Or the opposite - being so fidgety or restless that you have been moving around a lot more than usual: not at all 9. Thoughts that you would be better off or of hurting yourself in some way: not at all Total score: 0 Depression Screening Interpretation: Positive Depression Screening Follow-up: Existing condition Depression Screening Done: Yes 35254 - PHQ-9 Billing: Yes Source: Developed by Drs. Eladio Chow, Lon Marie and colleagues, with an educational jyoti from [employer]. Thrive Questionnaire Date Thrive assessed: 05/13/21 I am a: Patient What is your living situation today?: I have a steady place to live Within the past 12 months, did the food you bought not last and you didn't have the money to get more?: Never true Within the past 12 months, did you worry whether your food would run out before you got money to buy more?: Never true Do you have trouble paying for medicines?: No Do you have trouble getting transportation to medical appointments?: No Do you have trouble paying your heating and electricity bill?: No Do you have trouble taking care of your child, family member or friend?: No Do you have trouble with day-to-day activities such as bathing, preparing meals, shopping, managing finances, etc.?: No Are you currently unemployed and looking for a job?: No Are you interested in more education?: No Please select the resources that you would like help with: None Currently or been in a relationship where the following occur: no concerns reported AUDIT C Alcohol Use Questionnaire (AUDIT-C) 1. How often do you have a drink containing alcohol?: Never 3. How often do you have six or more drinks on one occasion?: Never Total Score: 0 NAVIN-7 AMB Questionnaire NAVIN-7 Date NAVIN - 7 assessed: 08/13/23 Feeling nervous, anxious, or on edge: 0 = Not at all Not being able to stop or control worryin = Not at all Worrying too much about different things: 0 = Not at all Trouble relaxin = Not at all Being so restless that it is hard to sit still: 0 = Not at all Becoming easily annoyed or irritable: 0 = Not at all Feeling afraid as if something awful might happen: 0 = Not at all Total NAVIN-7 score (0-4 normal; 5-9 mild; 10-14 moderate; 15-21 severe): 0 Source: Developed by Holly Gamino Kurt Kroenke and colleagues, with an educational jyoti from [employer]. NAVIN-7 Assessment Billing NAVIN-7 Assessment Tool: NAVIN-7 Assessment 75225 Review of Systems Const Denies body aches, Denies chills, Denies excessive sweating, Denies fatigue, Denies fever(s) and Denies headache(s) Eyes Denies blurry vision ENT Denies dysphagia, Denies vertigo, Denies dizziness, Denies headache(s), Denies hearing loss and Denies tinnitus Card Denies chest pain, Denies chest pain with activity, Denies syncope, Denies irregular heart rhythm and Denies dyspnea Resp Denies chest congestion, Denies cough, Denies hemoptysis, Denies dyspnea and Denies wheezing GI Denies abdominal pain, Denies melena, Denies hematochezia, Denies coffee ground emesis, Denies dysphagia, Denies diarrhea, Denies nausea and Denies vomiting Denies urinary frequency, Denies dysuria, Denies urinary hesitancy and Denies urinary urgency Musc Denies arthralgias, Denies limited range of motion, Denies muscle cramps and Denies muscle weakness Skin/Breast Denies rash and Denies skin ulcer Neuro Denies Abnormal speech present, Denies confusion, Denies vertigo, Denies dizziness, Denies syncope, Denies headache(s), Denies memory loss and Denies seizure-like activity Psych Denies anxiety, Denies confusion, Denies depression, Denies memory loss, Denies panic attacks and Denies paranoia Endo Denies excessive sweating, Denies fatigue, Denies flushing, Denies polydipsia and Denies polyuria Aller/Immun Denies wheezing Physical exam (Primary Care) Vital Signs: Last Vital Signs Pulse 75 08/13/23 10:50 BP 100/50 L 08/13/23 10:50 Pulse Ox 100 08/13/23 10:50 Oxygen Delivery Method Room Air 08/13/23 10:56 BMI result Body Mass Index 47.2 BMI Assessment/Plan discussion: High Tobacco/Smoking Status: Tobacco use Status Tobacco use date assessed 08/13/23 08/13/23 10:52 Patient Tobacco Use Status Never used Tobacco 08/13/23 10:49 e-Cigarette/Vaping Use Never Used 08/13/23 10:49 PHQ-9: PHQ-9 Score PHQ-9: Total score 0 08/13/23 11:18 Depression Screening Interpretation: Positive Depression Screening Follow-up: Existing condition Thrive Assessment: Date of Thrive Assessment Date Thrive assessed 05/13/21 08/13/23 10:49 Currently or been in a relationship where the following occur: no concerns reported Const Other: Morbidly Obese General: cooperative, comfortable, no acute distress, alert and awake; No confusion Orientation/consciousness: oriented to person, oriented to place, patient oriented x3 and No confusion HENMT Head: Yes normocephalic Ears: external ears normal and TM's normal bilaterally Face and sinus: No sinus tenderness Mouth: Normal oral and palatal mucosa present and tongue normal Teeth and gingiva: dentition normal and gingiva normal Throat: Yes posterior oropharynx normal, Yes tonsils normal and Yes uvula midline Eyes Conjunctivae: conjunctivae normal Sclerae: sclerae normal Pupils: Equal, round and reactive pupils present EOM: EOMs intact bilaterally Direct Ophthalmoscopy: No no photophobia Neck Neck: Yes no lymphadenopathy, No tender and Yes no JVD Thyroid: Thyroid normal Carotids: no bruits Chest Chest palpation & inspection: no tenderness Resp Effort & Inspection: normal respiratory effort, no audible wheezes, not labored and no stridor Auscultation: no crackles, no rales, no rhonchi and no wheezes Cardio Jugular venous distension: no JVD Rate: regular rate, not bradycardic and not tachycardic Rhythm: regular rhythm Bruits: no carotid bruits Peripheral pulses: Peripheral pulses 2+ throughout GI Inspection: Yes normal to inspection, No abdominal wall ecchymosis and No visible herniation Palpation (GI): Soft to palpation, nontender, no guarding, not rigid and No hepatosplenomegaly present Auscultation: normoactive bowel sounds General: Yes no CVA tenderness Back/Spine/Pelvis Back: no CVA tenderness and No back tenderness Cervical Spine: cervical ROM normal Thoracic/Lumbar Spine: thoracic and lumbar spine normal to inspection, straight leg raise negative bilaterally, No thoraco-lumbar ROM limited and No lumbar spinal tenderness Skin Lesions: no lesions Rashes: no rashes Wounds: no wounds Neuro General: oriented to person, oriented to place, patient oriented x3, CN's II-XI intact bilaterally and No confusion Cranial nerves: Yes Equal, round and reactive pupils present and Yes Normal accommodation reflex present Cognition (Neuro): normal cognition Speech: No Abnormal speech present Gait exam (Neuro): Normal gait present Motor exam (neuro): 5/5 motor strength present throughout Extrem Right upper extremity: full ROM; no cyanosis Left upper extremity: full ROM; no cyanosis Right lower extremity: no edema Left lower extremity: no edema Psych Appearance: grossly normal Mental Status: mental status grossly normal Affect: normal affect Attitude: cooperative Thought process: Normal thought process present Assessment and Plan Assessment & Plan (1) Annual physical exam: Code(s): Z00.00 - Encounter for general adult medical examination without abnormal findings (2) Obese: Code(s): E66.9 - Obesity, unspecified Qualifiers: Body mass index: BMI 45.0-49.9 Obesity classification: adult class 3 (BMI >= 40) Obesity type: due to excess calories Serious obesity comorbidity presence: without serious comorbidity Qualified Code(s): E66.01 - Morbid (severe) obesity due to excess calories; Z68.42 - Body mass index [BMI] 45.0-49.9, adult Plan: Patient does understand her BMI is well over 30 and wishes to be more physically active and tab better eating habits to reduce her weight. (3) Abnormal liver enzymes: Code(s): R74.8 - Abnormal levels of other serum enzymes Plan: Patient's liver enzymes are trending down. Were elevated during and was on ursodiol. Will continue to follow LFTs. (4) NAVIN (generalized anxiety disorder): Code(s): F41.1 - Generalized anxiety disorder Plan: Patient does suffer from generalized anxiety disorder. She does report a lot of stressors in her life. Has multiple kids. She is willing to try medication daily for anxiety and medication p.r.n. for sleep. She is willing to get established with a mental health therapist. (5) Screening for diabetes mellitus (DM): Code(s): Z13.1 - Encounter for screening for diabetes mellitus (6) Anemia: Code(s): D64.9 - Anemia, unspecified Qualifiers: Anemia type: iron deficiency Iron deficiency anemia type: unspecified iron deficiency Qualified Code(s): D50.9 - Iron deficiency anemia, unspecified Plan: History of anemia. Will recheck CBC to assure normal. (7) Hair thinning: Code(s): L65.9 - Nonscarring hair loss, unspecified Plan: Unclear etiology to patient's hair thinning. Will check a CBC and TSH. Hair thinning likely secondary to her stress in her life. Orders: Orders Vitamin B12 and Folate 08/13/23 D50.9 - Iron deficiency anemia, unspecified, E53.8 - Deficiency of other specified B group vitamins TSH reflex Free T4 08/13/23 L65.9 - Nonscarring hair loss, unspecified Comprehensive [facility]. Panel Fast 08/13/23 Z13.1 - Encounter for screening for diabetes mellitus IRON PROFILE 08/13/23 D50.9 - Iron deficiency anemia, unspecified Complete Blood Count no Diff 08/13/23 D50.9 - Iron deficiency anemia, unspecified Referrals Counseling Referral F41.1 - Generalized anxiety disorder Medications: New sertraline 50 mg PO DAILY 30 days 30 tabs 1RF F41.1 - Generalized anxiety disorder hydroxyzine HCl take 1- 2 tabs before bed . 20 mg (2 x 10 mg) PO BEDTIME 14 days 28 tabs 0RF F41.1 - Generalized anxiety disorder, F41.9 - Anxiety disorder, unspecified Coding Level of Care Code Est Pt Prev Care 18-39y(45587) Diagnoses Annual physical exam Z00.00 Class 3 severe obesity due to excess calories without serious comorbidity with body mass index (BMI) of 45.0 to 49.9 in adult E66.01; Z68.42 Body mass index: BMI 45.0-49.9 Obesity classification: adult class 3 (BMI >= 40) Obesity type: due to excess calories Serious obesity comorbidity presence: without serious comorbidity Abnormal liver enzymes R74.8 NAVIN (generalized anxiety disorder) F41.1 Screening for diabetes mellitus (DM) Z13.1 Iron deficiency anemia, unspecified iron deficiency anemia type D50.9 Anemia type: iron deficiency Iron deficiency anemia type: unspecified iron deficiency Hair thinning L65.9 Additional Codes NAVIN-7 Assessment Billing - NAVIN-7 Assessment Tool: NAVIN-7 Assessment [id number] ([id number])
[2023-08-13 10:50] VITALS: BP 100/50; PULSE 75; O2SAT 100; BMI 47.2
== END 2023-08-13 11:35 | disposition home or self-care (01) ==
PROVIDERS: Visit Provider Physician Assistant
DX: Z00.00 Encounter for general adult medical examination without abnormal findings (principal); E66.01 Morbid (severe) obesity due to excess calories; Z68.42 Body mass index [BMI] 45.0-49.9, adult; R74.8 Abnormal levels of other serum enzymes; F41.1 Generalized anxiety disorder; D50.9 Iron deficiency anemia, unspecified; L65.9 Nonscarring hair loss, unspecified
CPT/HCPCS: 99395

== ENCOUNTER 2023-09-10 08:53 | Outpatient (AMB) | payer OTHER, SELFPAY ==
--- NOTE | 2023-09-10 08:54 | MHC.PC.OV ---
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 Required: No Allergies adhesive tape Allergy (Intermediate, Verified 09/10/23 09:02) BLISTERS/RASH latex [LATEX] Allergy (Intermediate, Verified 09/10/23 09:02) BLISTERS/RASH Medication List - Last Reconciled 09/10/23 by Abilio August PA-C hydroxyzine HCl 20 mg (2 x 10 mg) PO BEDTIME 14 days sertraline 50 mg PO DAILY 30 days Tobacco use date assessed: 08/13/23 Dental Screening Dental Screen Date: 09/10/23 Did you have a dental visit in the last 12 months?: Yes Did you have a dental problem in the last 6 months where you did not have access to dental care?: No Was dental information given to patient?: Patient has dentist HPI f/u NAVIN( telehealth) HPI Details Patient is a 33-year-old female being evaluated today via telephone. Last visit we discussed her anxiety and was started on SSRI therapy. Has stared counseling which has been very helpful. Recently started SSRI therapy and feels and has taken positive affect. [facility], LAT[facility] Medical History Papanicolaou smear for cervical cancer screening History of cholestasis during Umbilical hernia Vitamin D deficiency Anemia Obesity Renal calculi Migraine Panic attack Surgical History History of right salpingo-oophorectomy Hx of tubal ligation Hx of bilateral breast reduction surgery Family History Father Heart attack CVD (cardiovascular disease) Mother Depression HTN (hypertension) Migraine Anxiety Maternal Grandmother HTN (hypertension) Breast cancer Uterine cancer Brother ADHD Sister Depression Maternal Aunt Breast cancer Paternal Grandmother Diabetes mellitus Paternal Grandfather IDDM (insulin dependent diabetes mellitus) Family/Other Cervical cancer Daughter Mental health disorder Son Mental health disorder Social History Housing: Apartment Alcohol intake: never Patient Tobacco Use Status: Never used Tobacco e-Cigarette/Vaping Use: Never Used Second Hand Smoke Exposure: No service: No Current occupational status: unemployed Gender identity: Female Cognitive needs: No Hearing needs: No Vision needs: No Female Reproductive History Menstrual Age of Menarche: 9 Questionnaire Thrive Questionnaire Date Thrive assessed: 05/13/21 NAVIN-7 AMB Questionnaire NAVIN-7 Date NAVIN - 7 assessed: 08/13/23 Source: Developed by Drs. Eladio Chow, Holly Loaiza, Lon Hinojosa and colleagues, with an educational jyoti from [employer]. Physical exam (Primary Care) Tobacco/Smoking Status: Tobacco use Status Tobacco use date assessed 08/13/23 09/10/23 08:56 Patient Tobacco Use Status Never used Tobacco 09/10/23 08:56 e-Cigarette/Vaping Use Never Used 09/10/23 08:56 Thrive Assessment: Date of Thrive Assessment Date Thrive assessed 05/13/21 09/10/23 08:56 Telehealth Telehealth Location of provider rendering services: practice address Location of patient: address on file Patient Identification confirmed using: Name, : Yes Telehealth method: voice only Patient verbally consented to treatment: Yes Patient verbally consented to billing insurance company: Yes Patient informed of any privacy concerns related to visit: Yes Minutes spent on Phone/Video with Pt.: 11 Assessment and Plan Assessment & Plan (1) NAVIN (generalized anxiety disorder): Code(s): F41.1 - Generalized anxiety disorder Plan: Patient reports her anxiety is much better. Has started counseling and recently started SSRI therapy in feels it has been working. Would like to stay on medication and continue counseling. Coding Level of Care Code Tele Est Pt Level 3 (71385) Diagnoses NAVIN (generalized anxiety disorder) F41.1
== END 2023-09-10 09:43 | disposition home or self-care (01) ==
LOC: HO.HMGH 08:53
PROVIDERS: PCP Physician Assistant; Visit Provider Physician Assistant
DX: F41.1 Generalized anxiety disorder (principal)
CPT/HCPCS: 99213

== ENCOUNTER 2024-04-25 07:21 | Outpatient (AMB) | payer OTHER, SELFPAY ==
--- NOTE | 2024-04-25 07:22 | MHC.OFFVIS ---
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 No complaints. Last Pap/HPV was negative in 10/18 [facility] Medical History Papanicolaou smear for cervical cancer screening History of cholestasis during Umbilical hernia Vitamin D deficiency Anemia Obesity Renal calculi Migraine Panic attack Surgical History History of right salpingo-oophorectomy Hx of tubal ligation Hx of bilateral breast reduction surgery Family History Father Heart attack CVD (cardiovascular disease) Mother Depression HTN (hypertension) Migraine Anxiety Maternal Grandmother HTN (hypertension) Breast cancer Uterine cancer Brother ADHD Sister Depression Maternal Aunt Breast cancer Paternal Grandmother Diabetes mellitus Paternal Grandfather IDDM (insulin dependent diabetes mellitus) Family/Other Cervical cancer Daughter Mental health disorder Son Mental health disorder Social History Housing: Apartment Alcohol intake: never Patient Tobacco Use Status: Never used Tobacco e-Cigarette/Vaping Use: Never Used Second Hand Smoke Exposure: No service: No Current occupational status: unemployed Gender identity: Female Cognitive needs: No Hearing needs: No Vision needs: No Female Reproductive History Menstrual Age of Menarche: 9 Date of last menstrual period: 04/08/24 control method: permanent sterilization Total pregnancies: 7 Full term: 5 Number of Living Children: 5 Ab spontaneous: 2 Date of last pap smear: 10/26/20 Review of Systems Const All systems reviewed & are unremarkable except as noted in HPI and below Card Reports as per HPI Resp Reports as per HPI GI Reports as per HPI and Reports no additional complaints Reports as per HPI Physical Exam Vital Signs: Last Vital Signs BP 124/86 / 07:27 BMI result Body Mass Index 47.2 Const General: cooperative, healthy appearing and comfortable Chest Chest palpation & inspection: normal inspection of the chest and normal palpation of entire chest wall Breast/axilla inspection: normal inspection of the breasts and normal inspection of the axillae Breast/axilla palpation: normal palpation of the breasts, normal palpation of the axillae and no axillary lymphadenopathy Resp Effort & Inspection: normal respiratory effort Auscultation: clear to auscultation bilaterally Percussion: percussion normal Cardio Palpation: normal PMI Rate: regular rate Rhythm: regular rhythm Heart sounds: no murmurs and no rubs Peripheral pulses: Peripheral pulses 2+ throughout GI Inspection: Yes normal to inspection Palpation (GI): Soft to palpation, nontender, no guarding, not rigid and No hepatosplenomegaly present Percussion: Yes normal to percussion Auscultation: normal bowel sounds Rectal Exam - Female: deferred General: Yes bladder normal to palpation External Female Exam: No lesion Speculum Exam - Vagina: normal appearance of the vagina, normal palpation, normal vaginal discharge and not erythematous Speculum Exam - Cervix: normal appearance of the cervix and normal palpation Bimanual exam- vagina & uterus: normal bimanual exam, normal palpation, uterine size normal, bladder normal to palpation, consistency normal and normal palpation Bimanual Exam- Adnexa, other: normal adnexae, no masses and no tenderness Assessment & Plan Assessment & Plan (1) Well woman exam: Code(s): Z01.419 - Encounter for gynecological examination (general) (routine) without abnormal findings Category: Medical Plan: Cotesting done. Counseled the patient about the recommended dietary allowance of 1000 mg of Calcium & 600 IU of vitamin D. The patient was instructed to perform monthly self-breast exams and to schedule an annual exam in a year; All questions answered and the patient verbalized understanding. Instructed the patient to schedule annual exam in a year Coding Level of Care Code Est Pt Prev Care 18-39y(38134) Diagnoses Well woman exam Z01.419
[2024-04-25 07:27] VITALS: BP 124/86; BMI 47.2
== END 2024-04-25 07:55 | disposition home or self-care (01) ==
LOC: HO.HWS 07:21
PROVIDERS: PCP Physician Assistant; Visit Provider Obstetrics & Gynecology
DX: Z01.419 Encounter for gynecological examination (general) (routine) without abnormal findings (principal)
CPT/HCPCS: 99395

== ENCOUNTER → 2024-04-25 07:21 | Outpatient (BNVA) | payer OTHER, SELFPAY | PROVIDERS: PCP Physician Assistant; Visit Provider Obstetrics & Gynecology | DX: Z01.419 Encounter for gynecological examination (general) (routine) without abnormal findings (principal) | CPT/HCPCS: 99395 ==

== ENCOUNTER 2024-11-25 07:31 | Outpatient (REF) | payer MEDICAID, SELFPAY ==
--- OUTSIDE RECORDS SUMMARY | 2024-11-25 07:34 | XMS_ITS | Encounter Summary ---
Author Organization [facility] Address [address] [place] [phone] Phone Care Team Providers Care Wired Music Operator Name Role Phone Lori Granados MD Primary Care Provider Unava ilable Encounter Details Date Type Department Care Team (Late st Contact Info) Description 05/14/2017 Conversion Encounter [facility] - [address] [address] Social History Tobacco Use Types Packs/Day Years Used Date Smoking Tobacco: Never Assessed Comments Unknown Sex and Gender Information Value Date Recorded Sex Assigned at Not on file Legal Sex Female 4:28 PM EDT Gender Identity Not on file Sexual Orientation Not on file documented as of this encounter Plan of Treatment Not on file documented as of this encounter Visit Diagnoses Not on filedocumented in this encounter Care Teams Wired Music Operator Relationship Specialty Start Date End Date Lori Granados MD PCP - General 05/08/17 documented as of this encounter
--- OUTSIDE RECORDS SUMMARY | 2024-11-25 07:34 | XMS_ITS | Clinical Summary ---
Author Organization [facility] Address [address] [place] [address] Phone Care Team Providers Care Pie Dough Roller Name Role Phone Lori Granados MD Primary Care Provider Unava ilable Immunizations Immunization Administration Dates Next Due DTP 11/13/1994, 2,1990,08/24,1990 HPV, Quadrivalent 12/29/2007 Hep B, ped/adol 11/19/2001,07/27/2001,06/21/2001 Hib (PRP-T) 07/22/1991, 1,1990,08/24 Influenza, injectable, trivalent 09/04/2006,120 03/2006 MMR 11/13/1994,07/22/1991 Meningococcal Conj (Menactra) MCV4P 12/29/2007 OPV 11/13/1994, 2,1990,06/23 Td (adult) (MBL), 2 Lf tetan us toxoid, PF, adsorbed 06/21/2001 Family History Relation Name Status Comments Brother Alive Brother: ADD Father Alive Father: Alive a nd well Mother Alive Mother: Alive a nd well Sister Alive Sister: Alive a nd well Social History Tobacco Use Types Packs/Day Years Used Date Smoking Tobacco: Never Assessed Comments Unknown Sex and Gender Information Value Date Recorded Sex Assigned at Not on file Legal Sex Female 4:28 PM EDT Gender Identity Not on file Sexual Orientation Not on file Plan of Treatment Health Maintenance Due Date Last Done Comments DTaP,Tdap,and Td Vaccines (6 - Tdap) 06/22/2001 06/21/2001, 11/13/1994, 10/24/1991, Additional history exists Varicella Vaccines (1 of 2 - 13+ 2-dose series) 2003 Consider Men B Vaccine (1 of 2 - Bexsero 2-dose series) 2006 HPV Vaccines (2 - 3-dose series) 01/26/2008 12/29/2007 Influenza Vaccines (#1) 2024 09/04/2006, 09/03 COVID-19 Vaccine ( season) 2024 HIB Vaccines Completed 07/22/1991, 01/26, 1990, Additional history exists IPV Vaccines Completed 11/13/1994, 09/29, 1990, Additional history exists MMR Vaccines Completed 11/13/1994, 07/22/1991 Hepatitis B Vaccines Completed 11/19/2001, 07/27/2001, 06/21/2001 Meningococcal Vaccine Completed 12/29/2007 Hepatitis A Vaccines Aged Out No long er eligible based on patient's age to complete this topic Men B Vaccine Aged Out No longer elig ible based on patient's age to complete this topic Pneumococcal Vaccine Aged Out No long er eligible based on patient's age to complete this topic Care Teams Pie Dough Roller Relationship Specialty Start Date End Date Lori Granados MD PCP - General 05/08/17
--- OUTSIDE RECORDS SUMMARY | 2024-11-25 07:34 | XMS_ITS | Encounter Summary ---
Author Organization [facility] Address [address] [place] [address] Phone Care Team Providers Care Steam Turbine Assembler Name Role Phone Lori Granados MD Primary Care Provider Unava ilable Encounter Details Date Type Department Care Team (Late st Contact Info) Description 12/31/2009 Documentation EM Family Medicine [address] [place] [address] Family Medicine, Physician [address] [place], [place] [phone] Social History Tobacco Use Types Packs/Day Years [...] on filedocumented in this encounter Care Teams Steam Turbine Assembler Relationship Specialty Start Date End Date Lori Granados MD PCP - General 05/08/17 documented as of this encounter
[2024-11-25 08:29] LABS: Hemoglobin 12.6 g/dl (12.0-16.0); Mean Corpuscular HGB Conc 32.3 g/dl (31.0-35.0); Mean Corpuscular Hemoglobin 25.9 pg (27.0-33.0); Mean Corpuscular Volume 80.2 fL (80.0-98.0); Mean Platelet Volume 10.7 fL (9.4-12.3); Platelet Count 356 X10*3/uL (160-400); Red Blood Count 4.86 X10*6/uL (4.20-5.50); Red Cell Distribution Width 13.8 % (11.0-16.0); White Blood Count 12.9 X10*3/uL (4.8-10.8)
[2024-11-25 09:18] LABS: Alanine Aminotransferase 17 U/L (0-31); Albumin Level 3.8 g/dL (3.5-5.0); Alkaline Phosphatase 67 U/L (39-117); Anion Gap 11 (12-20); Aspartate Amino Transferase 25 U/L (5-31); Bilirubin Total 1.1 mg/dL (0.0-1.0); Blood Urea Nitrogen 11 mg/dL (9-16); Calcium 9.1 mg/dL (8.4-10.2); Carbon Dioxide 25 mmol/L (22-29); Chloride 108 mmol/L (96-108); Estimated Glomerular Filt Rate > 60; Glucose Fasting 83 mg/dL (60-99); Potassium 4.1 mmol/L (3.3-5.1); Sodium 140 mmol/L (135-145); Total Protein 7.8 g/dL (6.5-8.0)
== END 2024-11-25 07:32 | disposition home or self-care (01) ==
LOC: HO.LAB 07:31
PROVIDERS: PCP Physician Assistant; Visit Provider Physician Assistant
DX: D50.9 Iron deficiency anemia, unspecified (principal); Z13.1 Encounter for screening for diabetes mellitus
CPT/HCPCS: 36415; 80053; 85027

== ENCOUNTER 2024-11-28 07:35 | Outpatient (AMB) | payer OTHER, SELFPAY ==
--- OUTSIDE RECORDS SUMMARY | 2024-11-28 07:37 | XMS_ITS | Encounter Summary ---
Author Organization [facility] Address [address] [place] [phone] Phone Care Team Providers Care Hull Inspector Name Role Phone Lori Granados MD Primary Care Provider Unava ilable Encounter Details Date Type Department Care Team (Late st Contact Info) Description 12/31/2009 Documentation EM Family Medicine [address] [place] [address] Family Medicine, Physician [address] [place], [place] [phone] Social History Tobacco Use Types Packs/Day Years [...] on filedocumented in this encounter Care Teams Hull Inspector Relationship Specialty Start Date End Date Lori Granados MD PCP - General 05/08/17 documented as of this encounter
--- OUTSIDE RECORDS SUMMARY | 2024-11-28 07:37 | XMS_ITS | Encounter Summary ---
Author Organization [facility] Address [address] [place] [address] Phone Care Team Providers Care Regulatory Leader Name Role Phone Lori Granados MD Primary Care Provider Unava ilable Encounter Details Date Type Department Care Team (Late st Contact Info) Description 05/14/2017 Conversion Encounter [facility] - [address] [address] Social History Tobacco Use Types Packs/Day Years [...] on filedocumented in this encounter Care Teams Regulatory Leader Relationship Specialty Start Date End Date Lori Granados MD PCP - General 05/08/17 documented as of this encounter
--- OUTSIDE RECORDS SUMMARY | 2024-11-28 07:37 | XMS_ITS | Clinical Summary ---
Author Organization [facility] Address [address] [place] [address] Phone Care Team Providers Care Cleaning Porter Name Role Phone Lori Granados MD Primary [...] age to complete this topic Care Teams Cleaning Porter Relationship Specialty Start Date End Date Lori Granados MD PCP - General 05/08/17
[2024-11-28 07:45] VITALS: BP 118/76; PULSE 82; O2SAT 98; BMI 47.4
--- NOTE | 2024-11-28 07:45 | A.OFFPC_ITS ---
Vital Signs 11/28/24 07:45 Height 5 ft 1 in Weight 251 lb BMI 47.4 BP 118/76 Blood Pressure Location Lt brachial Position Sitting Pulse 82 Pulse Source Pulse Oximeter Pulse Oximetry (%) 98 Oxygen Delivery Method Room Air Intake Visit Reasons: Annual exam Intake Note: Patient here for an annual physical exam Lace Machine Operator Required: No Accompanied by: Self / Same As Patient Allergies adhesive tape Allergy (Intermediate, Verified 11/28/24 08:08) BLISTERS/RASH latex [LATEX] Allergy (Intermediate, Verified 11/28/24 08:08) BLISTERS/RASH Medication List - Last Reconciled 11/28/24 by Abilio August PA-C No Known Home Meds Tobacco use date assessed: 11/28/24 Dental Screening Dental Screen Date: 11/28/24 Did you have a dental visit in the last 12 months?: Yes Did you have a dental problem in the last 6 months where you did not have access to dental care?: No Was dental information given to patient?: Patient has dentist HPI Annual exam HPI Details Patient is a 34 year-old female here today for routine annual physical. ? Patient has a past medical history significant for morbid obesity, GERD, elevated liver enzymes--> Cholestasis (during ) anemia. Concern--> reports right ankle pain that has been intermittent over last years. She reports swelling and a burning sensation over her medial ankle. She does admit to a injury years ago to her right ankle. She often has to wrap her ankle and use NSAID when her ankle flares. She does admit to having migraine type headaches intermittently. She finds that they come prior to her menses at times. She reports her migraines last for 2-3 days where she has photosensitivity and decreased appetite and vomiting. .. . Obesity: Unfortunately patient he has not lost weight since last visit. She does report not being able to be physically active due to her busy home life. She reports she is motivated to lose weight and is interested in weight management program. Elevated liver enzymes: Recent liver enzymes stabilized. .. GERD: Has resolved , is mostly diet controlled and does not take any antacids anymore. Vaccines: Up-to-date with tetanus, COVID, flu vaccines. 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 a shipyard laborer- At [facility] Laboratory Tests 11/25/24 07:42 WBC 12.9 H RBC 4.86 Hgb 12.6 Creatinine 0.75 PFSH Medical History (Updated 11/28/24 @ 08:33 by Abilio August PA-C) Papanicolaou smear for cervical cancer screening History of cholestasis during Umbilical hernia Vitamin D deficiency Anemia Obesity Renal calculi Migraine Panic attack Surgical History History of right salpingo-oophorectomy Hx of tubal ligation Hx of bilateral breast reduction surgery Family History Father Heart attack CVD (cardiovascular disease) Mother Depression HTN (hypertension) Migraine Anxiety Maternal Grandmother HTN (hypertension) Breast cancer Uterine cancer Brother ADHD Sister Depression Maternal Aunt Breast cancer Paternal Grandmother Diabetes mellitus Paternal Grandfather IDDM (insulin dependent diabetes mellitus) Family/Other Cervical cancer Daughter Mental health disorder Son Mental health disorder Social History Housing: Apartment Alcohol intake: never Patient Tobacco Use Status: Never used Tobacco e-Cigarette/Vaping Use: Never Used Second Hand Smoke Exposure: No service: No Current occupational status: unemployed Gender identity: Female Cognitive needs: No Hearing needs: No Vision needs: No Female Reproductive History Menstrual Age of Menarche: 9 Questionnaire PHQ-9 Over the last 2 weeks, how often have you been bothered by any of the following problems? 1. Little interest or pleasure in doing things: not at all 2. Feeling down, depressed, or hopeless: not at all 3. Trouble falling or staying asleep, or sleeping too much: not at all 4. Feeling tired or having little energy: more than half the days 5. Poor appetite or overeating: more than half the days 6. Feeling bad about yourself - or that you are a failure or have let yourself or your family down: not at all 7. Trouble concentrating on things, such as reading the newspaper or watching television: not at all 8. Moving or speaking so slowly that other people could have noticed. Or the opposite - being so fidgety or restless that you have been moving around a lot more than usual: not at all 9. Thoughts that you would be better off or of hurting yourself in some way: not at all Total score: 4 Depression Screening Interpretation: Positive Depression Screening Follow-up: Existing condition Depression Screening Done: Yes 42922 - PHQ-9 Billing: Yes Source: Developed by Drs. Eladio Chow, Lon Marie and colleagues, with an educational jyoti from [employer]. Thrive Questionnaire Date Thrive assessed: 11/27/24 I am a: Patient What is your living situation today?: I have a steady place to live Within the past 12 months, did the food you bought not last and you didn't have the money to get more?: Never true Within the past 12 months, did you worry whether your food would run out before you got money to buy more?: Never true Do you have trouble paying for medicines?: No Do you have trouble getting transportation to medical appointments?: No Do you have trouble paying your heating and electricity bill?: No Do you have trouble taking care of your child, family member or friend?: No Do you have trouble with day-to-day activities such as bathing, preparing meals, shopping, managing finances, etc.?: No Are you currently unemployed and looking for a job?: No Are you interested in more education?: No Please select the resources that you would like help with: None Currently or been in a relationship where the following occur: No concerns reported THRIVE Score: 0 AUDIT C Alcohol Use Questionnaire (AUDIT-C) 1. How often do you have a drink containing alcohol?: Never Total Score: 0 NAVIN-7 AMB Questionnaire NAVIN-7 Date NAVIN - 7 assessed: 11/28/24 Feeling nervous, anxious, or on edge: 0 = Not at all Not being able to stop or control worryin = Not at all Worrying too much about different things: 0 = Not at all Trouble relaxin = Not at all Being so restless that it is hard to sit still: 0 = Not at all Becoming easily annoyed or irritable: 0 = Not at all Feeling afraid as if something awful might happen: 0 = Not at all Total NAVIN-7 score (0-4 normal; 5-9 mild; 10-14 moderate; 15-21 severe): 0 Source: Developed by Holly Gamino Kurt Kroenke and colleagues, with an educational jyoti from [employer]. NAVIN-7 Assessment Billing NAVIN-7 Assessment Tool: NAVIN-7 Assessment 54940 Review of Systems Const Denies body aches, Denies chills, Denies excessive sweating, Denies fatigue, Denies fever(s) and Denies headache(s) Eyes Denies blurry vision ENT Denies dysphagia, Denies vertigo, Denies dizziness, Denies headache(s), Denies hearing loss and Denies tinnitus Card Denies chest pain, Denies chest pain with activity, Denies syncope, Denies irregular heart rhythm and Denies dyspnea Resp Denies chest congestion, Denies cough, Denies hemoptysis, Denies dyspnea and Denies wheezing GI Denies abdominal pain, Denies melena, Denies hematochezia, Denies coffee ground emesis, Denies dysphagia, Denies diarrhea, Denies nausea and Denies vomiting Denies urinary frequency, Denies dysuria, Denies urinary hesitancy and Denies urinary urgency Musc Denies arthralgias, Denies limited range of motion, Denies muscle cramps and Denies muscle weakness Skin/Breast Denies rash and Denies skin ulcer Neuro Denies Abnormal speech present, Denies confusion, Denies vertigo, Denies dizziness, Denies syncope, Denies headache(s), Denies memory loss and Denies seizure-like activity Psych Denies anxiety, Denies confusion, Denies depression, Denies memory loss, Denies panic attacks and Denies paranoia Endo Denies excessive sweating, Denies fatigue, Denies flushing, Denies polydipsia and Denies polyuria Aller/Immun Denies wheezing Physical exam (Primary Care) Vital Signs: Last Vital Signs Pulse 82 11/28/24 07:45 BP 118/76 11/28/24 07:45 Pulse Ox 98 11/28/24 07:45 Oxygen Delivery Method Room Air 11/28/24 07:45 BMI result Body Mass Index 47.4 BMI Assessment/Plan discussion: High BMI High, discussed plan: lifestyle, weight reduction, dietary and physical activity Tobacco/Smoking Status: Tobacco use Status Tobacco use date assessed 11/28/24 11/28/24 07:52 Patient Tobacco Use Status Never used Tobacco 11/28/24 07:52 e-Cigarette/Vaping Use Never Used 11/28/24 07:52 PHQ-9: PHQ-9 Score PHQ-9: Total score 4 11/28/24 08:38 Depression Screening Interpretation: Positive Depression Screening Follow-up: Existing condition Thrive Assessment: Date of Thrive Assessment Date Thrive assessed 11/27/24 11/28/24 07:52 Currently or been in a relationship where the following occur: No concerns reported Const Other: OBESE General: cooperative, comfortable, no acute distress, alert and awake; No confusion Orientation/consciousness: oriented to person, oriented to place, patient oriented x3 and No confusion HENMT Head: Yes normocephalic Ears: external ears normal and TM's normal bilaterally Face and sinus: No sinus tenderness Mouth: Normal oral and palatal mucosa present and tongue normal Teeth and gingiva: dentition normal and gingiva normal Throat: Yes posterior oropharynx normal, Yes tonsils normal and Yes uvula midline Eyes Conjunctivae: conjunctivae normal Sclerae: sclerae normal Pupils: Equal, round and reactive pupils present EOM: EOMs intact bilaterally Direct Ophthalmoscopy: No no photophobia Neck Neck: Yes no lymphadenopathy, No tender and Yes no JVD Thyroid: Thyroid normal Carotids: no bruits Chest Chest palpation & inspection: no tenderness Resp Effort & Inspection: normal respiratory effort, no audible wheezes, not labored and no stridor Auscultation: no crackles, no rales, no rhonchi and no wheezes Cardio Jugular venous distension: no JVD Rate: regular rate, not bradycardic and not tachycardic Rhythm: regular rhythm Bruits: no carotid bruits Peripheral pulses: Peripheral pulses 2+ throughout GI Inspection: Yes normal to inspection, No abdominal wall ecchymosis and No visible herniation Palpation (GI): Soft to palpation, nontender, no guarding, not rigid and No hepatosplenomegaly present Auscultation: normoactive bowel sounds General: Yes no CVA tenderness Back/Spine/Pelvis Back: no CVA tenderness and No back tenderness Cervical Spine: cervical ROM normal Thoracic/Lumbar Spine: thoracic and lumbar spine normal to inspection, straight leg raise negative bilaterally, No thoraco-lumbar ROM limited and No lumbar spinal tenderness Skin Lesions: no lesions Rashes: no rashes Wounds: no wounds Neuro General: oriented to person, oriented to place, patient oriented x3, CN's II-XI intact bilaterally and No confusion Cranial nerves: Yes Equal, round and reactive pupils present and Yes Normal accommodation reflex present Cognition (Neuro): normal cognition Speech: No Abnormal speech present Gait exam (Neuro): Normal gait present Motor exam (neuro): 5/5 motor strength present throughout Extrem Right upper extremity: full ROM; no cyanosis Left upper extremity: full ROM; no cyanosis Right lower extremity: no edema Left lower extremity: no edema Psych Appearance: grossly normal Mental Status: mental status grossly normal Affect: normal affect Attitude: cooperative Thought process: Normal thought process present Coding Level of Care Code Est Pt Prev Care 18-39y(59554) Diagnoses Annual physical exam Z00.00 NAVIN (generalized anxiety disorder) F41.1 Migraine without status migrainosus, not intractable, unspecified migraine type G43.909 Intractability: not intractable Migraine type: unspecified Status migrainosus presence: without status migrainosus Leukocytosis, unspecified type D72.829 Leukocytosis type: unspecified Chronic pain of both ankles M25.571; M25.572; G89.29 Chronicity: chronic Additional Codes NAVIN-7 Assessment Billing - NAVIN-7 Assessment Tool: NAVIN-7 Assessment 26522 ([id number]) PHQ-9 - 87676 - PHQ-9 Billing: Yes ([id number]) Assessment & Plan Assessment & Plan (1) Annual physical exam: Code(s): Z00.00 - Encounter for general adult medical examination without abnormal findings Category: Medical Plan: As per HPI (2) NAVIN (generalized anxiety disorder): Code(s): F41.1 - Generalized anxiety disorder Category: Medical Plan: Patient reports her anxiety has been much better since doing mental health therapy. She has stopped using mental health therapy at this time and feels a bit better. She does have stress in her life due to being a mother of 5 children. (3) Migraine: Code(s): G43.909 - Migraine, unspecified, not intractable, without status migrainosus Category: Medical Qualifiers: Intractability: not intractable Migraine type: unspecified Status migrainosus presence: without status migrainosus Qualified Code(s): G43.909 - Migraine, unspecified, not intractable, without status migrainosus Plan: Patient reports signs and symptoms consistent with migraines that seem to be cyclic just before her menstruations. Will supply patient with Imitrex to use on an as needed basis. Discuss the use of naproxen or ibuprofen prior to her menstruations for possible premenstrual dysphoric syndrome (4) Leukocytosis: Code(s): D72.829 - Elevated white blood cell count, unspecified Category: Medical Qualifiers: Leukocytosis type: unspecified Qualified Code(s): D72.829 - Elevated white blood cell count, unspecified Plan: Noted slight leukocytosis on most recent labs. Will recheck CBC (5) Bilateral ankle pain: Code(s): M25.571 - Pain in right ankle and joints of right foot; M25.572 - Pain in left ankle and joints of left foot Category: Medical Qualifiers: Chronicity: chronic Qualified Code(s): M25.571 - Pain in right ankle and joints of right foot; M25.572 - Pain in left ankle and joints of left foot; G89.29 - Other chronic pain Plan: Patient reports bilateral ankle pain though worse on the right side. Intermittently gets swollen and painful. She does report an injury to her right ankle many years ago. Orders: Orders TSH reflex Free T4 Today L65.9 - Nonscarring hair loss, unspecified XR ankle RT 2V Today G89.29 - Other chronic pain, M25.571 - Pain in right ankle and joints of right foot, M25.572 - Pain in left ankle and joints of left foot Complete Blood Count no Diff Today D72.829 - Elevated white blood cell count, unspecified XR ankle LT 2V Today G89.29 - Other chronic pain, M25.571 - Pain in right ankle and joints of right foot, M25.572 - Pain in left ankle and joints of left foot Medications: New sumatriptan succinate take 1 tab at onset of headache; if no relief may repeat 1 tab after at least 2 hrs; max = 4 tabs/24 hr PO 9 tabs 1RF 30 days G43.909 - Migraine, unspecified, not intractable, without status migrainosus
== END 2024-11-28 08:34 | disposition home or self-care (01) ==
PROVIDERS: PCP Physician Assistant; Visit Provider Physician Assistant
DX: Z00.00 Encounter for general adult medical examination without abnormal findings (principal); F41.1 Generalized anxiety disorder; G43.909 Migraine, unspecified, not intractable, without status migrainosus; D72.829 Elevated white blood cell count, unspecified; M25.571 Pain in right ankle and joints of right foot; M25.572 Pain in left ankle and joints of left foot; G89.29 Other chronic pain

== ENCOUNTER 2024-11-28 07:35 | Outpatient (REF) | payer OTHER, SELFPAY ==
--- NOTE | ~2024-11-28 | XR_ITS ---
CLINICAL HISTORY: M25.571 - Pain in right ankle and joints of right foot 3 view left ankle Comparison: None Findings: No displaced fracture. No dislocation. Posterior ossicle of the dorsal talus. Moderate effusion present. Small anterior calcaneal spur present. No radiopaque retained foreign body. IMPRESSION: 1. No acute fracture or dislocation. 2. Moderate effusion. This document has been electronically signed by: Ezequiel Linares MD on 11/28/2024 20:56:42
--- NOTE | ~2024-11-28 | XR_ITS ---
CLINICAL HISTORY: M25.571 - Pain in right ankle and joints of right foot 3 view right ankle Comparison: None Findings: No displaced fracture. No dislocation. Small bone islands in the imaged talus. Small to moderate effusion present. Anterior calcaneal spur noted. No radiopaque foreign body. IMPRESSION: 1. No acute fracture or dislocation. 2. [id number] effusion. This document has been electronically signed by: Ezequiel Linares MD on 11/28/2024 20:53:31
--- OUTSIDE RECORDS SUMMARY | 2024-11-28 09:10 | XMS_ITS | Encounter Summary ---
Author Organization [facility] Address [address] [place] [address] Phone Care Team Providers Care Insurance Professional Name Role Phone Lori Granados MD Primary Care Provider Unava ilable Encounter Details Date Type Department Care Team (Late st Contact Info) Description 12/31/2009 Documentation EM Family Medicine [address] [place] [address] Family Medicine, Physician [address] [place], [place] [phone] Social History Tobacco Use Types Packs/Day Years [...] on filedocumented in this encounter Care Teams Insurance Professional Relationship Specialty Start Date End Date Lori Granados MD PCP - General 05/08/17 documented as of this encounter
--- OUTSIDE RECORDS SUMMARY | 2024-11-28 09:10 | XMS_ITS | Encounter Summary ---
Author Organization [facility] Address [address] [place] [address] Phone Care Team Providers Care Dermatology Sales Representative Name Role Phone Lori Granados MD Primary Care Provider Unava ilable Encounter Details Date Type Department Care Team (Late st Contact Info) Description 05/14/2017 Conversion Encounter [facility] - [address] [address] Social History Tobacco Use Types Packs/Day Years [...] on filedocumented in this encounter Care Teams Dermatology Sales Representative Relationship Specialty Start Date End Date Lori Granados MD PCP - General 05/08/17 documented as of this encounter
--- OUTSIDE RECORDS SUMMARY | 2024-11-28 09:11 | XMS_ITS | Clinical Summary ---
Author Organization [facility] Address [address] [place] [address] Phone Care Team Providers Care Adult Basic Education Instructor Name Role Phone Lori Granados MD Primary [...] of 2 - 13+ 2-dose series) 2003 HPV Vaccines (2 - 3-dose series) 01/26/2008 [...] age to complete this topic Care Teams Adult Basic Education Instructor Relationship Specialty Start Date End Date Lori Granados MD PCP - General 05/08/17
[2024-11-28 09:59] LABS: Hematocrit 37.8 % (37.0-47.0); Hemoglobin 12.3 g/dl (12.0-16.0); Mean Corpuscular HGB Conc 32.5 g/dl (31.0-35.0); Mean Corpuscular Hemoglobin 26.2 pg (27.0-33.0); Mean Corpuscular Volume 80.6 fL (80.0-98.0); Mean Platelet Volume 10.5 fL (9.4-12.3); Platelet Count 293 X10*3/uL (160-400); Red Blood Count 4.69 X10*6/uL (4.20-5.50); White Blood Count 11.4 X10*3/uL (4.8-10.8)
[2024-11-28 11:18] LABS: TSH reflex Free T4 1.87 uIU/mL (0.32-4.0)
== END 2024-11-28 07:36 | disposition home or self-care (01) ==
LOC: HO.XRAY 07:35
PROVIDERS: PCP Physician Assistant; Visit Provider Physician Assistant
DX: Z00.00 Encounter for general adult medical examination without abnormal findings (principal); F41.1 Generalized anxiety disorder; G43.909 Migraine, unspecified, not intractable, without status migrainosus; D72.829 Elevated white blood cell count, unspecified; G89.29 Other chronic pain; M25.571 Pain in right ankle and joints of right foot; M25.572 Pain in left ankle and joints of left foot; L65.9 Nonscarring hair loss, unspecified
CPT/HCPCS: 36415; 73600; 84443; 85027; 96127; 99395

== ENCOUNTER → 2024-11-28 09:11 | Outpatient (BNV) | payer OTHER, SELFPAY | PROVIDERS: PCP Physician Assistant; Visit Provider Radiology Neuroradiology | DX: M25.571 Pain in right ankle and joints of right foot (principal); M25.572 Pain in left ankle and joints of left foot | CPT/HCPCS: 73600 ==